=== PATIENT | male | born 1945 | race Caucasian/White ===

== ENCOUNTER 2018-10-14 10:30 | Outpatient (RCR) | payer MEDICARE, SELFPAY ==
--- NOTE | 2018-08-12 16:33 | PT.OIE ---
Current Diagnoses Low back pain (08/12/18) Muscle weakness (generalized) (08/12/18) Other abnormalities of gait and mobility (08/12/18) Other general symptoms and signs (08/12/18) Past Medical History (Last Updated 07/11/18 @ 22:07 by Kyra Amato) Cataracts, bilateral (Chronic ~2012) Chronic back pain (Chronic ~2001) Colitis (Chronic ~2011) Colon polyps (Chronic ~2011) Tinnitus (Chronic ~2010) Vision disorder (Chronic) Mumps (Resolved ~1949) Past Surgical History (Last Updated 07/11/18 @ 22:07 by Kyra Amato) Anesthesia (Resolved) History of appendectomy (Resolved ~1954) History of nasal surgery (Resolved) History of shoulder surgery (Resolved) Provider Visit Care Team Role Provider Type Johny Ragland MD Attending Provider Physician Primary Care Provider Specialty: Internal Medicine Address: [address] [place] [address] Email: Physical Therapy Initial Evaluation PT-OP-A Visit Information Start: 08/08/18 16:30 Freq: Status: Active Protocol: Document 08/12/18 10:30 LRN (Rec: 08/12/18 16:31 LRN [id number]) Out-Patient Physical Therapy Visit Information Visit Information Visit Type Initial Evaluation Visit Note Per telephone, spoke with Daniel Webb RN to discuss with Dr Mcclain regarding addition of referral for LBP to treat pt' s LBP or if pt should be referred back to his office for evaluation before back rehabilitation. Visit Start Time 10:30 Visit Stop Time 11:25 Total Visit Minutes 55 Visit Number 1 Number of BAKER HELPER Visits 0 Evaluation Information Evaluation Date 08/12/18 Precautions Precautions Balance dysfunction Back pain PT-OP-B Current Condition Start: 08/08/18 16:30 Freq: Status: Active Protocol: Document 08/12/18 10:30 LRN (Rec: 08/12/18 16:31 LRN [id number]) Current Condition History of Current Condition Onset Date 7 yrs ago Current Complaints Difficulty walking due to back pain and dec'd balance. 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 He claims the surgery was botched and since that time he has had to relearned how to walk. He has had rehabilitation off/on for the past 7 yrs in [place], [place]. He has trouble with being able to walk straight due to decreased balance. He denies fall history in the past year. The pt also complains of insidious onset of LBP that is present with activity and exercise. His pain is achy in nature. He is having difficulty walking more than 1/2 mile, standing to brush his teeth, and with sit to stand due to back pain. He has no pain with sitting or sleeping. Prior Treatments and Tests Rehabilitation for gait, on/ off for past 7 years. Future Testing and Treatments Planned None Treatment Goals Patient/Caregiver Goals Pt goal is to: 1) Walk stairs with >60% confidence (currently 50% confidence). 2) Increase speed of gait to keep up with . 3) Decrease back pain with activity. Prior Functional Status Baseline Function- ADL's Independent Baseline Function- Mobility Independent Baseline Function- Gait Able to walk 1 mile without difficulty. Up/Down stairs one at a time. Baseline Function- Recreation/Hobbies Walking: TM x 15' Stationary Biking x 15' Current Functional Impairments (Reported) Functional Limitations- ADL's Difficulty transfers: Sit to Stand. Difficulty Brushing teeth due to pain. Functional Limitations- Mobility/Gait Stair ambulation with railing one at a time with 50% confidence. Gait 1/2 mile before onset of LBP limiting gait. Personal Factors Other Personal Factors That May Effect Chronicity of balance Therapy/Recovery dysfunction Dislocated L shoulder PT-OP-C Subjective Start: 08/08/18 16:30 Freq: Status: Active Protocol: Document 08/12/18 10:30 LRN (Rec: 08/12/18 16:31 LRN [id number]) OP-PT Pain Assessment Pain Assessment Grid Paper Pain Assessment Grid Completed Yes Location Bilateral Lower Back Pain Location Details Low back Intensity 5 Scale Used Numeric (1 - 10) Description Aching Frequency Intermittent Pain Duration During activity & prolonged standing PT-OP-D Balance Start: 08/08/18 16:30 Freq: Status: Active Protocol: Document 08/12/18 10:30 LRN (Rec: 08/12/18 16:31 LRN [id number]) Miller Balance Assessment Evaluation Sitting to Standing Ability Independent w/out Hands Unsupported Stance Safely- 2 minutes Sitting Unsupported, Feet on Floor Safely- 2 minutes Standing to Sitting Ability Safely, Minimal Hand Use Transfer Ability Safely, Minimal Hand Use Unsupported Stance- Eyes Closed Safely, 10 seconds Unsupported Stance- Eyes Open Supervision to maintain Reaching Forward Standing Safely, 5 inches Pick- Up Object From Floor Independent/Safe Look Behind Shoulder - Standing Shifts Weight Well Turning 360 Degrees Turns slowly, but safely Unsupported Stance, Alternating Feet on (I)- 8 Steps in 20 secs Stair Unsupported Tandem Stance Balance Lost- Step/Stand Unilateral Leg Stance Lifts Leg/Unable to Hold Total Score Miller Total Score (out of 56 points) 45 Miller Impairment Rating 1 to 19% Impaired (Score 45-55 ) PT-OP-E Functional Tests Start: 08/08/18 16:30 Freq: Status: Active Protocol: Document 08/12/18 10:30 LRN (Rec: 08/12/18 16:31 LRN [id number]) Functional Tests Other Gait speed Name of Test Gait speed Score 2.8 Comment 3.08 ft/sec - preferred for men in 70's PT-OP-G Mobility & Gait Start: 08/08/18 16:30 Freq: Status: Active Protocol: Document 08/12/18 10:30 LRN (Rec: 08/12/18 16:31 LRN [id number]) OP Mobility Evaluation Transfers Sit to Stand Pt uses the chair to stand by pushing with his legs against if for support and stability. OP Gait Assessment Gait Gait Assistance Required: Independent Distance (Feet) 100 Able to Maintain Weight Bearing Status Yes During Gait Assistive Devices Assistive Device None Gait Deviations General Gait Pattern Lateral Trunk Lean Comments Gait Comments Lateral trunk lean posturing during gait. PT-OP-J Posture/Palpation/Skin Start: 08/08/18 16:30 Freq: Status: Active Protocol: Document 08/12/18 10:30 LRN (Rec: 08/12/18 16:31 LRN [id number]) Posture Evaluation Comments Posture Comments Standing: Level hips, C-curve of thoracolumbar spine with apex on left, low R shoulder and scapula, head tilt R, mild forward head, flat back, protruding abdomen, sway back. Palpation Assessment Location Low back Palpation Location Low back at level of L5 Palpation Findings Tenderness PT-OP-M Strength Start: 08/08/18 16:30 Freq: Status: Active Protocol: Document 08/12/18 10:30 LRN (Rec: 08/12/18 16:31 LRN [id number]) Trunk Strength Trunk Manual Muscle Testing Testing Position Standing Flexion 3 Fair Extension 5 Normal Rotation Left 3 Fair Rotation Right 4 Good Lateral Flexion Left 5 Normal Lateral Flexion Right 5 Normal Hip Strength Hip Manual Muscle Testing Right Flexion (L2) 3 Fair Extension (S1) 3 Fair Left Flexion (L2) 3 Fair Extension (S1) 3 Fair Knee Strength Knee Manual Muscle Testing Right Reason Not Measured WFL Left Reason Not Measured WFL Ankle/Foot Strength Ankle and Foot Manual Muscle Testing Right Dorsiflexion (L4) 4 Good Plantarflexion (S1) 5 Normal Left Dorsiflexion (L4) 3 Fair Plantarflexion (S1) 5 Normal PT-OP-Q Treatments Start: 08/08/18 16:30 Freq: Status: Active Protocol: Document 08/12/18 10:30 LRN (Rec: 08/12/18 16:31 LRN [id number]) Therapeutic Exercises Sitting Exercises Sit to Stand Sitting Exercise Name Sit to Stand Reps/Minutes 10 x Comments SBA. Trying to keep pt from pushing w/back of legs against sit surface Neuro Re-Education Treatment Balance Activities Walking head turns Details Vertical and horizontal head turns Surface Level Comments Loss of stability with horizontal head turns. Tandem Stance Details Tandem with L foot and with R foot behind Surface Level Comments Pt needs CGA to get toe/heel positioning. SLS Details EO, SLS Surface Level Reps/Duration 2x each Self-Care/Home Management Treatment Education Patient Education Home Exercise Program Activities Self-Care/Home Management Activities Pt I/S to do sit to stands from a solid surface, avoiding pushing with legs. PT-OP-T Assessment and Plan Start: 08/08/18 16:30 Freq: Status: Active Protocol: Document 08/12/18 10:30 LRN (Rec: 08/12/18 16:31 LRN [id number]) Physical Therapy Assessment Rehab Potential Rehabilitation Potential Good Evaluation Complexity Number of Personal Factors/Comorbidities 1-2 Number of Body Systems Impaired 4 or More Clinical Presentation at Evaluation Evolving Impairments Impairments Activity Tolerance Balance Pain Posture Strength Other Concerns Fall Risk Mild Age Related Concerns +70 yr old effect on social and home life. Barriers to Rehabilitation Chronicity of condition Memory deficits Goals Back pain Impairment Back pain rated 5/10 hindering ability to brush teeth and walk > 1/2 mile Short Term Goal (STG) Pt will be able to brush his teeth with back pain no greater than 1-2/10. STG Duration 09/23/18 Toy Maker Goal (LTG) Pt will be able to walk with spouse > 1/2 mile with back pain 3/10 or less. LTG Duration 11/04/18 Gait Impairment Slow speed of gait (2.8 ft/sec ) Long-Term Goal (LTG) Improve speed of gait to norm of 3.08 ft/sec - preferred for men in 70's. LTG Duration 11/04/18 Stairs Impairment Pt w/50% confidence with safe stair ambulation w/railing, one step gait Long-Term Goal (LTG) Pt will be improve confidence level to 60% with stair ambulation w/railing, single step or reciprocal gait. LTG Duration 11/04/18 Balance Impairment MILLER score of 45 = Safe ambulation with assistive device Toy Maker Goal (LTG) Improve balance for safe ambulation without an assistive device (MILLER score of > 45) LTG Duration 11/04/18 HEP Impairment Lacks appropriate HEP Toy Maker Goal (LTG) Pt will be independent on a self care HEP. LTG Duration 11/04/18 Assessment Summary Assessment Pt present with decreased balance indicating the need for use of an assistive device for safe ambulation; therefore placing him at risk of falling because he is not currently using an assistive device for gait. The pt demonstrates weakness of his hips and ankles that also effect his stability with gait and safety with transfers sit to stand. The pt complains of LBP that is limiting his functional ability for prolonged standing for functional activities ( brushing teeth and walking); therefore physical therapy to improve his trunk strength and decrease his pain is appropriate. The pt will benefit from skilled physical therapy to improve his LE ( hips, ankles) & trunk strength to improve his safety with gait on level and stairs and soft tissue/manual therapy to decrease his back pain to improve his tolerance for functional activities. Physical Therapy Plan Frequency and Duration Frequency of Treatment 2x/Week Plan of Care Start Date 08/12/18 Plan of Care End Date 11/04/18 Therapeutic Interventions Therapeutic Interventions Balance Training Gait Training Home Exercise Program Manual Therapy Neuromuscular Re-education Patient/Caregiver Education Self-Care/Home Management Soft Tissue Mobilization Therapeutic Exercises Modalities Cold Pack/Ice Massage Electric Stimulation Hot Packs Ultrasound Next Visit Focus/Plan Next Note Type Treatment Note Next Visit Plan Hip, core & ankle strengthening and aerobic exercise (MMT), Complete DGI, Balance training, Hip/LB stretches as needed (check mobility), MH/ES if needed for back pain.
--- NOTE | 2018-08-12 16:34 | PT.OPPOC ---
Current Diagnoses Low back pain (08/12/18) Muscle weakness (generalized) (08/12/18) Other abnormalities of gait and mobility (08/12/18) Other general symptoms and signs (08/12/18) Provider Visit Care Team Role Provider Type Johny Ragland MD Attending Provider Physician Primary Care Provider Specialty: Internal Medicine Address: [address] [place] [address], [id number] Email: Plan Of Care PT-OP-T Assessment and Plan Start: 08/08/18 16:30 Freq: Status: Active Protocol: Document 08/12/18 10:30 LRN (Rec: 08/12/18 16:31 LRN [id number]) Physical Therapy Assessment Rehab Potential Rehabilitation Potential Good Evaluation Complexity Number of Personal Factors/Comorbidities 1-2 Number of Body Systems Impaired 4 or More Clinical Presentation at Evaluation Evolving Impairments Impairments Activity Tolerance Balance Pain Posture Strength Other Concerns Fall Risk Mild Age Related Concerns +70 yr old effect on social and home life. Barriers to Rehabilitation Chronicity of condition Memory deficits Goals Back pain Impairment Back pain rated 5/10 hindering ability to brush teeth and walk > 1/2 mile Short Term Goal (STG) Pt will be able to brush his teeth with back pain no greater than 1-2/10. STG Duration 09/23/18 Custodial Goal (LTG) Pt will be able to walk with spouse > 1/2 mile with back pain 3/10 or less. LTG Duration 11/04/18 Gait Impairment Slow speed of gait (2.8 ft/sec ) Professional Architect Goal (LTG) Improve speed of gait to norm of 3.08 ft/sec - preferred for men in 70's. LTG Duration 11/04/18 Stairs Impairment Pt w/50% confidence with safe stair ambulation w/railing, one step gait Professional Architect Goal (LTG) Pt will be improve confidence level to 60% with stair ambulation w/railing, single step or reciprocal gait. LTG Duration 11/04/18 Balance Impairment MILLER score of 45 = Safe ambulation with assistive device Custodial Goal (LTG) Improve balance for safe ambulation without an assistive device (MILLER score of > 45) LTG Duration 11/04/18 HEP Impairment Lacks appropriate HEP Custodial Goal (LTG) Pt will be independent on a self care HEP. LTG Duration 11/04/18 Assessment Summary Assessment Pt present with decreased balance indicating the need for use of an assistive device for safe ambulation; therefore placing him at risk of falling because he is not currently using an assistive device for gait. The pt demonstrates weakness of his hips and ankles that also effect his stability with gait and safety with transfers sit to stand. The pt complains of LBP that is limiting his functional ability for prolonged standing for functional activities ( brushing teeth and walking); therefore physical therapy to improve his trunk strength and decrease his pain is appropriate. The pt will benefit from skilled physical therapy to improve his LE ( hips, ankles) & trunk strength to improve his safety with gait on level and stairs and soft tissue/manual therapy to decrease his back pain to improve his tolerance for functional activities. Physical Therapy Plan Frequency and Duration Frequency of Treatment 2x/Week Plan of Care Start Date 08/12/18 Plan of Care End Date 11/04/18 Therapeutic Interventions Therapeutic Interventions Balance Training Gait Training Home Exercise Program Manual Therapy Neuromuscular Re-education Patient/Caregiver Education Self-Care/Home Management Soft Tissue Mobilization Therapeutic Exercises Modalities Cold Pack/Ice Massage Electric Stimulation Hot Packs Ultrasound Next Visit Focus/Plan Next Note Type Treatment Note Next Visit Plan Hip, core & ankle strengthening and aerobic exercise (MMT), Complete DGI, Balance training, Hip/LB stretches as needed (check mobility), MH/ES if needed for back pain. Plan of Care Dates Plan of Care Start Date 08/12/18 Plan of Care End Date 11/04/18 Please Sign and Return: I have reviewed this Plan of Care and certify that the skilled therapy services above are required to meet the patient?s needs. Physician Signature Date Printed Name and Credentials Clinical Instructor Signature Printed Name and Credentials
--- NOTE | 2018-08-19 15:23 | PT.OTN ---
Current Diagnoses Other abnormalities of gait and mobility (08/19/18) Other general symptoms and signs (08/19/18) Physical Therapy Treatment Note PT-OP-A Visit Information Start: 08/08/18 16:30 Freq: Status: Active Protocol: Document 08/19/18 13:38 LRN (Rec: 08/19/18 14:43 LRN [id number]) Out-Patient Physical Therapy Visit Information Visit Information Visit Type Treatment Note Visit Note Message left 08/17/18, received [phone] on 08/18/18 from Diane Puente's office: Extension to his referral to add treatment of low back will be faxed to rehabilitation. 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 He claims the surgery was botched and since that time he has had to relearned how to walk. He has had rehabilitation off/on for the past 7 yrs in [place], [place]. He has trouble with being able to walk straight due to decreased balance. He denies fall history in the past year. The pt also complains of insidious onset of LBP that is present with activity and exercise. His pain is achy in nature. He is having difficulty walking more than 1/2 mile, standing to brush his teeth, and with sit to stand due to back pain. He has no pain with sitting or sleeping. Prior Treatments and Tests Rehabilitation for gait, on/ off for past 7 years. Future Testing and Treatments Planned None Treatment Goals Patient/Caregiver Goals Pt goal is to: 1) Walk stairs with >60% confidence (currently 50% confidence). 2) Increase speed of gait to keep up with . 3) Decrease back pain with activity. Prior Functional Status Baseline Function- ADL's Independent Baseline Function- Mobility Independent Baseline Function- Gait Able to walk 1 mile without difficulty. Up/Down stairs one at a time. Baseline Function- Recreation/Hobbies Walking: TM x 15' Stationary Biking x 15' Current Functional Impairments (Reported) Functional Limitations- ADL's Difficulty transfers: Sit to Stand. Difficulty Brushing teeth due to pain. Functional Limitations- Mobility/Gait Stair ambulation with railing one at a time with 50% confidence. Gait 1/2 mile before onset of LBP limiting gait. Personal Factors Other Personal Factors That May Effect Chronicity of balance Therapy/Recovery dysfunction Dislocated L shoulder PT-OP-C Subjective Start: 08/08/18 16:30 Freq: Status: Active Protocol: Document 08/19/18 13:38 LRN (Rec: 08/19/18 14:43 LRN [id number]) OP-PT Subjective Patient Comments Patient Comments No change. PT-OP-D Balance Start: 08/08/18 16:30 Freq: Status: Active Protocol: Document 08/12/18 10:30 LRN (Rec: 08/12/18 16:31 LRN [id number]) Stuart Balance Assessment Evaluation Sitting to Standing Ability Independent w/out Hands Unsupported Stance Safely- 2 minutes Sitting Unsupported, Feet on Floor Safely- 2 minutes Standing to Sitting Ability Safely, Minimal Hand Use Transfer Ability Safely, Minimal Hand Use Unsupported Stance- Eyes Closed Safely, 10 seconds Unsupported Stance- Eyes Open Supervision to maintain Reaching Forward Standing Safely, 5 inches Pick- Up Object From Floor Independent/Safe Look Behind Shoulder - Standing Shifts Weight Well Turning 360 Degrees Turns slowly, but safely Unsupported Stance, Alternating Feet on (I)- 8 Steps in 20 secs Stair Unsupported Tandem Stance Balance Lost- Step/Stand Unilateral Leg Stance Lifts Leg/Unable to Hold Total Score Stuart Total Score (out of 56 points) 45 Stuart Impairment Rating 1 to 19% Impaired (Score 45-55 ) PT-OP-E Functional Tests Start: 08/08/18 16:30 Freq: Status: Active Protocol: Document 08/19/18 13:38 LRN (Rec: 08/19/18 15:19 LRN [id number]) Functional Tests Other Gait speed Name of Test Gt speed of 20' Score 2.5 ft/sec Comment No assistive device needed. PT-OP-G Mobility & Gait Start: 08/08/18 16:30 Freq: Status: Active Protocol: Document 08/12/18 10:30 LRN (Rec: 08/12/18 16:31 LRN [id number]) OP Mobility Evaluation Transfers Sit to Stand Pt uses the chair to stand by pushing with his legs against if for support and stability. OP Gait Assessment Gait Gait Assistance Required: Independent Distance (Feet) 100 Able to Maintain Weight Bearing Status Yes During Gait Assistive Devices Assistive Device None Gait Deviations General Gait Pattern Lateral Trunk Lean Comments Gait Comments Lateral trunk lean posturing during gait. PT-OP-J Posture/Palpation/Skin Start: 08/08/18 16:30 Freq: Status: Active Protocol: Document 08/12/18 10:30 LRN (Rec: 08/12/18 16:31 LRN [id number]) Posture Evaluation Comments Posture Comments Standing: Level hips, C-curve of thoracolumbar spine with apex on left, low R shoulder and scapula, head tilt R, mild forward head, flat back, protruding abdomen, sway back. Palpation Assessment Location Low back Palpation Location Low back at level of L5 Palpation Findings Tenderness PT-OP-K Range of Motion Start: 08/08/18 16:30 Freq: Status: Active Protocol: Document 08/19/18 13:38 LRN (Rec: 08/19/18 15:19 LRN [id number]) Lumbar Spine Range of Motion Lumbar Spine Active Degrees Testing Position Standing Flexion 57 Extension 10 Rotation Left 10 Rotation Right 15 Lateral Flexion Left 20 Lateral Flexion Right 13 ROM Limitations Soft Tissue Tightness Comments Rotation measurement is approximate ROM. Hip Goniometric Range of Motion Hip Measured in Degrees Right Passive Testing Position Supine Flexion w/Knee Flexed 110 Straight Leg Raise 50 Abduction 40 Internal Rotation 25 External Rotation 55 Left Passive Testing Position Supine Flexion w/Knee Flexed 110 Straight Leg Raise 50 Abduction 40 Internal Rotation 30 External Rotation 60 Hip ROM Limitations Comments Passive hip AD is 10 deg's bilaterally. PT-OP-M Strength Start: 08/08/18 16:30 Freq: Status: Active Protocol: Document 08/12/18 10:30 LRN (Rec: 08/12/18 16:31 LRN [id number]) Trunk Strength Trunk Manual Muscle Testing Testing Position Standing Flexion 3 Fair Extension 5 Normal Rotation Left 3 Fair Rotation Right 4 Good Lateral Flexion Left 5 Normal Lateral Flexion Right 5 Normal Hip Strength Hip Manual Muscle Testing Right Flexion (L2) 3 Fair Extension (S1) 3 Fair Left Flexion (L2) 3 Fair Extension (S1) 3 Fair Knee Strength Knee Manual Muscle Testing Right Reason Not Measured WFL Left Reason Not Measured WFL Ankle/Foot Strength Ankle and Foot Manual Muscle Testing Right Dorsiflexion (L4) 4 Good Plantarflexion (S1) 5 Normal Left Dorsiflexion (L4) 3 Fair Plantarflexion (S1) 5 Normal PT-OP-Q Treatments Start: 08/08/18 16:30 Freq: Status: Active Protocol: Document 08/19/18 13:38 LRN (Rec: 08/19/18 15:19 LRN [id number]) Therapeutic Exercises Supine Exercises Hip PROM Supine Exercise Name All motions Reps/Minutes 4' Comments ROM measurments taken Piriformis Supine Exercise Name Knee to opposite shoulder (pt not able to do X-legged position stretch) Side bilateral Reps/Minutes 5' Comments Extra time taken for training Fig 4 stretch Side bilateral Reps/Minutes 4' Comments R>L. Extra time taken for training Hamstring/LE neural stretch Side bilateral Reps/Minutes 4' Comments Extra time taken for training Standing Exercises Trunk SB Side bilateral Reps/Minutes 2' Comments ROM measurement taken Trunk rot Side bilateral Reps/Minutes 2' Comments ROM measurement taken Trunk FB Standing Exercise Name Standing FB stretch Reps/Minutes 2' Comments ROM measurement taken Gait Training Gait Activity Stairs Description Up/Down 6 steps Device Used Railing Level of Assistance Inde Distance/Duration 3' Neuro Re-Education Treatment Balance Activities Stepping around objects Details Weaving in/out of cones Surface Level Equipment Cones Reps/Duration 3' Stepping over objects Details Stepping over hurdles Surface Level Equipment Hurdles Reps/Duration 3' Walking with variable speeds Details Slow & Fast paced compared to neutral Surface Level Reps/Duration 3' Walking head turns Details Vertical and horizontal head turns with normal gait Reps/Duration 6' Self-Care/Home Management Treatment Education Patient Education Home Exercise Program Activities Self-Care/Home Management Activities Pt issued and reviewed HEP: Hip stretches (hamstring, piriformis, ER's). PT-OP-T Assessment and Plan Start: 08/08/18 16:30 Freq: Status: Active Protocol: Document 08/19/18 13:38 LRN (Rec: 08/19/18 14:43 LRN [id number]) Physical Therapy Assessment Assessment Summary Assessment Pt balance with gait is decreased with horizontal head turns moderately, and with looking up/down mildly, only upon initial change in head position. He is not able to walk at a faster pace than normal, but can walk at a slower pace. He has decreased hip mobility in his hamstrings, hip rotators and to a lesser extent his hip extensors. The pt is able to navigate around objects, but is variable in his ability stepping over objects. Stair ambulation is safe with use of railing. Further HEP of trunk flex, rotation stretches is needed. Trunk & hip strengthening is needed. Physical Therapy Plan Frequency and Duration Frequency of Treatment 2x/Week Plan of Care Start Date 08/12/18 Plan of Care End Date 11/04/18 Next Visit Focus/Plan Next Note Type Treatment Note Next Visit Plan Complete DGI, Hip, core & ankle strengthening, and aerobic exercise, cont balance training, LB stretches (flex, rotation), trunk strengthening (and HEP), check hip strength (AB, AD, ER, IR) and hip strengthening (and HEP) as needed, MH/ES if needed for back pain.
--- NOTE | 2018-08-29 15:46 | PT.OTN ---
Current Diagnoses Other abnormalities of gait and mobility (08/29/18) Other general symptoms and signs (08/29/18) Physical Therapy Treatment Note PT-OP-A Visit Information Start: 08/08/18 16:30 Freq: Status: Active Protocol: Document 08/29/18 10:45 LRN (Rec: 08/29/18 11:22 LRN [id number]) Out-Patient Physical Therapy Visit Information Visit Information Visit Type Treatment Note Visit Note Message left 08/17/18, received [phone] on 08/18/18 from Diane Puetne's office: Extension to his referral to add treatment of low back will be faxed to rehabilitation. Visit Start Time 10:45 Visit Stop Time 11:25 Total Visit Minutes 40 Visit Number 3 Number of LITHOGRAPHER APPRENTICE Visits 0 Evaluation Information Evaluation Date 08/12/18 Precautions Precautions Balance dysfunction Back pain PT-OP-B Current Condition Start: 08/08/18 16:30 Freq: Status: Active Protocol: Document 08/12/18 10:30 LRN (Rec: 08/12/18 16:31 LRN [id number]) Current Condition History of Current Condition Onset Date 7 yrs ago Current Complaints Difficulty walking due to back pain and dec'd balance. 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 He claims the surgery was botched and since that time he has had to relearned how to walk. He has had rehabilitation off/on for the past 7 yrs in [place], [place]. He has trouble with being able to walk straight due to decreased balance. He denies fall history in the past year. The pt also complains of insidious onset of LBP that is present with activity and exercise. His pain is achy in nature. He is having difficulty walking more than 1/2 mile, standing to brush his teeth, and with sit to stand due to back pain. He has no pain with sitting or sleeping. Prior Treatments and Tests Rehabilitation for gait, on/ off for past 7 years. Future Testing and Treatments Planned None Treatment Goals Patient/Caregiver Goals Pt goal is to: 1) Walk stairs with >60% confidence (currently 50% confidence). 2) Increase speed of gait to keep up with . 3) Decrease back pain with activity. Prior Functional Status Baseline Function- ADL's Independent Baseline Function- Mobility Independent Baseline Function- Gait Able to walk 1 mile without difficulty. Up/Down stairs one at a time. Baseline Function- Recreation/Hobbies Walking: TM x 15' Stationary Biking x 15' Current Functional Impairments (Reported) Functional Limitations- ADL's Difficulty transfers: Sit to Stand. Difficulty Brushing teeth due to pain. Functional Limitations- Mobility/Gait Stair ambulation with railing one at a time with 50% confidence. Gait 1/2 mile before onset of LBP limiting gait. Personal Factors Other Personal Factors That May Effect Chronicity of balance Therapy/Recovery dysfunction Dislocated L shoulder PT-OP-C Subjective Start: 08/08/18 16:30 Freq: Status: Active Protocol: Document 08/19/18 13:38 LRN (Rec: 08/19/18 14:43 LRN [id number]) OP-PT Subjective Patient Comments Patient Comments No change. PT-OP-D Balance Start: 08/08/18 16:30 Freq: Status: Active Protocol: Document 08/12/18 10:30 LRN (Rec: 08/12/18 16:31 LRN [id number]) Stuart Balance Assessment Evaluation Sitting to Standing Ability Independent w/out Hands Unsupported Stance Safely- 2 minutes Sitting Unsupported, Feet on Floor Safely- 2 minutes Standing to Sitting Ability Safely, Minimal Hand Use Transfer Ability Safely, Minimal Hand Use Unsupported Stance- Eyes Closed Safely, 10 seconds Unsupported Stance- Eyes Open Supervision to maintain Reaching Forward Standing Safely, 5 inches Pick- Up Object From Floor Independent/Safe Look Behind Shoulder - Standing Shifts Weight Well Turning 360 Degrees Turns slowly, but safely Unsupported Stance, Alternating Feet on (I)- 8 Steps in 20 secs Stair Unsupported Tandem Stance Balance Lost- Step/Stand Unilateral Leg Stance Lifts Leg/Unable to Hold Total Score Stuart Total Score (out of 56 points) 45 Stuart Impairment Rating 1 to 19% Impaired (Score 45-55 ) PT-OP-E Functional Tests Start: 08/08/18 16:30 Freq: Status: Active Protocol: Document 08/19/18 13:38 LRN (Rec: 08/19/18 15:19 LRN [id number]) Functional Tests Other Gait speed Name of Test Gt speed of 20' Score 2.5 ft/sec Comment No assistive device needed. PT-OP-G Mobility & Gait Start: 08/08/18 16:30 Freq: Status: Active Protocol: Document 08/12/18 10:30 LRN (Rec: 08/12/18 16:31 LRN [id number]) OP Mobility Evaluation Transfers Sit to Stand Pt uses the chair to stand by pushing with his legs against if for support and stability. OP Gait Assessment Gait Gait Assistance Required: Independent Distance (Feet) 100 Able to Maintain Weight Bearing Status Yes During Gait Assistive Devices Assistive Device None Gait Deviations General Gait Pattern Lateral Trunk Lean Comments Gait Comments Lateral trunk lean posturing during gait. PT-OP-J Posture/Palpation/Skin Start: 08/08/18 16:30 Freq: Status: Active Protocol: Document 08/12/18 10:30 LRN (Rec: 08/12/18 16:31 LRN [id number]) Posture Evaluation Comments Posture Comments Standing: Level hips, C-curve of thoracolumbar spine with apex on left, low R shoulder and scapula, head tilt R, mild forward head, flat back, protruding abdomen, sway back. Palpation Assessment Location Low back Palpation Location Low back at level of L5 Palpation Findings Tenderness PT-OP-K Range of Motion Start: 08/08/18 16:30 Freq: Status: Active Protocol: Document 08/19/18 13:38 LRN (Rec: 08/19/18 15:19 LRN [id number]) Lumbar Spine Range of Motion Lumbar Spine Active Degrees Testing Position Standing Flexion 57 Extension 10 Rotation Left 10 Rotation Right 15 Lateral Flexion Left 20 Lateral Flexion Right 13 ROM Limitations Soft Tissue Tightness Comments Rotation measurement is approximate ROM. Hip Goniometric Range of Motion Hip Measured in Degrees Right Passive Testing Position Supine Flexion w/Knee Flexed 110 Straight Leg Raise 50 Abduction 40 Internal Rotation 25 External Rotation 55 Left Passive Testing Position Supine Flexion w/Knee Flexed 110 Straight Leg Raise 50 Abduction 40 Internal Rotation 30 External Rotation 60 Hip ROM Limitations Comments Passive hip AD is 10 deg's bilaterally. PT-OP-M Strength Start: 08/08/18 16:30 Freq: Status: Active Protocol: Document 08/12/18 10:30 LRN (Rec: 08/12/18 16:31 LRN [id number]) Trunk Strength Trunk Manual Muscle Testing Testing Position Standing Flexion 3 Fair Extension 5 Normal Rotation Left 3 Fair Rotation Right 4 Good Lateral Flexion Left 5 Normal Lateral Flexion Right 5 Normal Hip Strength Hip Manual Muscle Testing Right Flexion (L2) 3 Fair Extension (S1) 3 Fair Left Flexion (L2) 3 Fair Extension (S1) 3 Fair Knee Strength Knee Manual Muscle Testing Right Reason Not Measured WFL Left Reason Not Measured WFL Ankle/Foot Strength Ankle and Foot Manual Muscle Testing Right Dorsiflexion (L4) 4 Good Plantarflexion (S1) 5 Normal Left Dorsiflexion (L4) 3 Fair Plantarflexion (S1) 5 Normal PT-OP-Q Treatments Start: 08/08/18 16:30 Freq: Status: Active Protocol: Document 08/29/18 10:45 LRN (Rec: 08/29/18 15:44 LRN [id number]) Cardio Equipment Bicycle (Upright) Duration (Minutes) 5 Resistance 4 Seat Position 9 Other Pt practicing chest breathing. Therapeutic Exercises Supine Exercises Oblique strengthenig Supine Exercise Name Isometric (hand to knee) Side bilateral Reps/Minutes 8' Comments Xtra time taken to bring awareness of an oblique contraction TA tightening Supine Exercise Name TA tightening Reps/Minutes 2' Comments Xtra time taken to initiate a contraction, but pt not able to maintain Sitting Exercises Abdominal strengthening Sitting Exercise Name TA, Rotation (pushing hand to opposite knee) Side bilateral Reps/Minutes 4' Comments Pt not able to identify an oblique contraction. Not able to maintain TA Standing Exercises Trunk rot Standing Exercise Name Trunk rot strengthening Side bilateral Resistance L2 T-Band Reps/Minutes 8 Comments Xtra time taken to try to get pt to perform ex properly, oblique not isolat Other Exercises 4-Pt Other Exercise Name TA tightening Side bilateral Reps/Minutes 3' Comments Pt able to get an abdominal lift but not hold a contraction. Self-Care/Home Management Treatment Education Patient Education Home Exercise Program Other Education Much training was given for pt to hold a TA. Discussed pt's progression of aerobic ex at home with varying his time of ex if he is to ex daily (2-5' one day, up to 10' next day, repeating pattern through the week if exercising daily, otherwise have rest days inbetween). Activities Self-Care/Home Management Activities I/S pt to work home: chest breathing with TA contraction or 1st to achieve chest breathing, & oblique isometric strengthening. PT-OP-T Assessment and Plan Start: 08/08/18 16:30 Freq: Status: Active Protocol: Document 08/29/18 10:45 LRN (Rec: 08/29/18 15:44 LRN [id number]) Physical Therapy Assessment Assessment Summary Assessment Was not able to check DGI because treatment needed to improve pt awareness of his core. Extra time taken for training of holding a TA with breathing, but was unable to achieve because he was not able to coordinate TA holding without abdominal breathing. Pt appears to be disconnected to his abdominal region with poor awareness of his breathing movements and abdominal muscle contractions. Pt may need repetitive treatments to improve his awareness of abdominal muscle contractions and to be able to perform chest as well as belly breathing. Physical Therapy Plan Frequency and Duration Frequency of Treatment 2x/Week Plan of Care Start Date 08/12/18 Plan of Care End Date 11/04/18 Next Visit Focus/Plan Next Note Type Treatment Note Next Visit Plan Complete DGI, Hip, core & ankle strengthening, and progress aerobic exercise, cont balance training, LB stretches (flex, rotation), trunk strengthening (and HEP), check hip strength (AB, AD, ER, IR) and hip strengthening (and HEP) as needed, MH/ES if needed for back pain.
--- NOTE | 2018-09-02 11:35 | PT.OTN ---
Current Diagnoses Other abnormalities of gait and mobility (09/02/18) Other general symptoms and signs (09/02/18) Physical Therapy Treatment Note PT-OP-A Visit Information Start: 08/08/18 16:30 Freq: Status: Active Protocol: Document 09/02/18 11:28 SA (Rec: 09/02/18 11:35 SA [email or web address]) Out-Patient Physical Therapy Visit Information Visit Information Visit Type Treatment Note Visit Note Pt 5 min late Visit Start Time 09:50 Visit Stop Time 10:30 Total Visit Minutes 40 Visit Number 4 Number of LICENSED CUSTOMS BROKER Visits 1 PT-OP-B Current Condition Start: 08/08/18 16:30 Freq: Status: Active Protocol: Document 08/12/18 10:30 LRN (Rec: 08/12/18 16:31 LRN [id number]) Current Condition History of Current Condition Onset Date 7 yrs ago Current Complaints Difficulty walking due to back pain and dec'd balance. 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 He claims the surgery was botched and since that time he has had to relearned how to walk. He has had rehabilitation off/on for the past 7 yrs in [place], [place]. He has trouble with being able to walk straight due to decreased balance. He denies fall history in the past year. The pt also complains of insidious onset of LBP that is present with activity and exercise. His pain is achy in nature. He is having difficulty walking more than 1/2 mile, standing to brush his teeth, and with sit to stand due to back pain. He has no pain with sitting or sleeping. Prior Treatments and Tests Rehabilitation for gait, on/ off for past 7 years. Future Testing and Treatments Planned None Treatment Goals Patient/Caregiver Goals Pt goal is to: 1) Walk stairs with >60% confidence (currently 50% confidence). 2) Increase speed of gait to keep up with . 3) Decrease back pain with activity. Prior Functional Status Baseline Function- ADL's Independent Baseline Function- Mobility Independent Baseline Function- Gait Able to walk 1 mile without difficulty. Up/Down stairs one at a time. Baseline Function- Recreation/Hobbies Walking: TM x 15' Stationary Biking x 15' Current Functional Impairments (Reported) Functional Limitations- ADL's Difficulty transfers: Sit to Stand. Difficulty Brushing teeth due to pain. Functional Limitations- Mobility/Gait Stair ambulation with railing one at a time with 50% confidence. Gait 1/2 mile before onset of LBP limiting gait. Personal Factors Other Personal Factors That May Effect Chronicity of balance Therapy/Recovery dysfunction Dislocated L shoulder PT-OP-C Subjective Start: 08/08/18 16:30 Freq: Status: Active Protocol: Document 09/02/18 11:28 SA (Rec: 09/02/18 11:35 SA [email or web address]) OP-PT Subjective Patient Comments Patient Comments Pt reports he is doing abdominal exercises at home. PT-OP-D Balance Start: 08/08/18 16:30 Freq: Status: Active Protocol: Document 08/12/18 10:30 LRN (Rec: 08/12/18 16:31 LRN [id number]) Stuart Balance Assessment Evaluation Sitting to Standing Ability Independent w/out Hands Unsupported Stance Safely- 2 minutes Sitting Unsupported, Feet on Floor Safely- 2 minutes Standing to Sitting Ability Safely, Minimal Hand Use Transfer Ability Safely, Minimal Hand Use Unsupported Stance- Eyes Closed Safely, 10 seconds Unsupported Stance- Eyes Open Supervision to maintain Reaching Forward Standing Safely, 5 inches Pick- Up Object From Floor Independent/Safe Look Behind Shoulder - Standing Shifts Weight Well Turning 360 Degrees Turns slowly, but safely Unsupported Stance, Alternating Feet on (I)- 8 Steps in 20 secs Stair Unsupported Tandem Stance Balance Lost- Step/Stand Unilateral Leg Stance Lifts Leg/Unable to Hold Total Score Stuart Total Score (out of 56 points) 45 Stuart Impairment Rating 1 to 19% Impaired (Score 45-55 ) PT-OP-E Functional Tests Start: 08/08/18 16:30 Freq: Status: Active Protocol: Document 08/19/18 13:38 LRN (Rec: 08/19/18 15:19 LRN [id number]) Functional Tests Other Gait speed Name of Test Gt speed of 20' Score 2.5 ft/sec Comment No assistive device needed. PT-OP-G Mobility & Gait Start: 08/08/18 16:30 Freq: Status: Active Protocol: Document 08/12/18 10:30 LRN (Rec: 08/12/18 16:31 LRN [id number]) OP Mobility Evaluation Transfers Sit to Stand Pt uses the chair to stand by pushing with his legs against if for support and stability. OP Gait Assessment Gait Gait Assistance Required: Independent Distance (Feet) 100 Able to Maintain Weight Bearing Status Yes During Gait Assistive Devices Assistive Device None Gait Deviations General Gait Pattern Lateral Trunk Lean Comments Gait Comments Lateral trunk lean posturing during gait. PT-OP-J Posture/Palpation/Skin Start: 08/08/18 16:30 Freq: Status: Active Protocol: Document 08/12/18 10:30 LRN (Rec: 08/12/18 16:31 LRN [id number]) Posture Evaluation Comments Posture Comments Standing: Level hips, C-curve of thoracolumbar spine with apex on left, low R shoulder and scapula, head tilt R, mild forward head, flat back, protruding abdomen, sway back. Palpation Assessment Location Low back Palpation Location Low back at level of L5 Palpation Findings Tenderness PT-OP-K Range of Motion Start: 08/08/18 16:30 Freq: Status: Active Protocol: Document 08/19/18 13:38 LRN (Rec: 08/19/18 15:19 LRN [id number]) Lumbar Spine Range of Motion Lumbar Spine Active Degrees Testing Position Standing Flexion 57 Extension 10 Rotation Left 10 Rotation Right 15 Lateral Flexion Left 20 Lateral Flexion Right 13 ROM Limitations Soft Tissue Tightness Comments Rotation measurement is approximate ROM. Hip Goniometric Range of Motion Hip Measured in Degrees Right Passive Testing Position Supine Flexion w/Knee Flexed 110 Straight Leg Raise 50 Abduction 40 Internal Rotation 25 External Rotation 55 Left Passive Testing Position Supine Flexion w/Knee Flexed 110 Straight Leg Raise 50 Abduction 40 Internal Rotation 30 External Rotation 60 Hip ROM Limitations Comments Passive hip AD is 10 deg's bilaterally. PT-OP-M Strength Start: 08/08/18 16:30 Freq: Status: Active Protocol: Document 08/12/18 10:30 LRN (Rec: 08/12/18 16:31 LRN [id number]) Trunk Strength Trunk Manual Muscle Testing Testing Position Standing Flexion 3 Fair Extension 5 Normal Rotation Left 3 Fair Rotation Right 4 Good Lateral Flexion Left 5 Normal Lateral Flexion Right 5 Normal Hip Strength Hip Manual Muscle Testing Right Flexion (L2) 3 Fair Extension (S1) 3 Fair Left Flexion (L2) 3 Fair Extension (S1) 3 Fair Knee Strength Knee Manual Muscle Testing Right Reason Not Measured WFL Left Reason Not Measured WFL Ankle/Foot Strength Ankle and Foot Manual Muscle Testing Right Dorsiflexion (L4) 4 Good Plantarflexion (S1) 5 Normal Left Dorsiflexion (L4) 3 Fair Plantarflexion (S1) 5 Normal PT-OP-Q Treatments Start: 08/08/18 16:30 Freq: Status: Active Protocol: Document 09/02/18 11:28 SA (Rec: 09/02/18 11:35 [email or web address]) Cardio Equipment Bicycle (Upright) Duration (Minutes) 6 Resistance 5 Seat Position 9 Therapeutic Exercises Supine Exercises Oblique strengthenig Supine Exercise Name Isometric (hand to knee) Side bilateral Reps/Minutes 6' Comments Xtra time taken to bring awareness of an oblique contraction TA tightening Supine Exercise Name TA tightening Reps/Minutes 2' Comments Xtra time taken to initiate a contraction, but pt not able to maintain Piriformis Supine Exercise Name Knee to opposite shoulder (pt not able to do X-legged position stretch) Side bilateral Reps/Minutes 5' Comments Extra time taken for training Hamstring/LE neural stretch Side bilateral Reps/Minutes 4' Comments Extra time taken for training Sitting Exercises Abdominal strengthening Sitting Exercise Name TA, Rotation (pushing hand to opposite knee) Side bilateral Reps/Minutes 4' Comments Pt not able to identify an oblique contraction. Not able to maintain TA Other Exercises 4-Pt Other Exercise Name TA tightening Side bilateral Reps/Minutes 3' Comments Pt able to get an abdominal lift but not hold a contraction. PT-OP-T Assessment and Plan Start: 08/08/18 16:30 Freq: Status: Active Protocol: Document 09/02/18 11:28 SA (Rec: 09/02/18 11:35 [email or web address]) Physical Therapy Assessment Assessment Summary Assessment Completed DGI with overall score of 16/28 which relates to an increase in falls. Treatment focused on core engagement and TA contraction with breathing. Pt having difficulty with breathing during contraction, to continue working on at home. Physical Therapy Plan Next Visit Focus/Plan Next Note Type Treatment Note Next Visit Plan Progress core program as able, increase pt self awareness, LE strengthening and balance.
--- NOTE | 2018-09-05 15:50 | PT.OTN ---
Current Diagnoses Other abnormalities of gait and mobility (09/05/18) Other general symptoms and signs (09/05/18) Physical Therapy Treatment Note PT-OP-A Visit Information Start: 08/08/18 16:30 Freq: Status: Active Protocol: Document 09/05/18 09:00 LRN (Rec: 09/05/18 09:44 LRN [id number]) Out-Patient Physical Therapy Visit Information Visit Information Visit Type Treatment Note Visit Start Time 09:00 Visit Stop Time 09:43 Total Visit Minutes 43 Visit Number 5 Number of PHOTOGRAPHIC [employer]QU[employer]MENT [employer]SEMBLER Visits 1 Evaluation Information Evaluation Date 08/12/18 Precautions Precautions Balance dysfunction Back pain PT-OP-B Current Condition Start: 08/08/18 16:30 Freq: Status: Active Protocol: Document 08/12/18 10:30 LRN (Rec: 08/12/18 16:31 LRN [id number]) Current Condition History of Current Condition Onset Date 7 yrs ago Current Complaints Difficulty walking due to back pain and dec'd balance. 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 He claims the surgery was botched and since that time he has had to relearned how to walk. He has had rehabilitation off/on for the past 7 yrs in [place], [place]. He has trouble with being able to walk straight due to decreased balance. He denies fall history in the past year. The pt also complains of insidious onset of LBP that is present with activity and exercise. His pain is achy in nature. He is having difficulty walking more than 1/2 mile, standing to brush his teeth, and with sit to stand due to back pain. He has no pain with sitting or sleeping. Prior Treatments and Tests Rehabilitation for gait, on/ off for past 7 years. Future Testing and Treatments Planned None Treatment Goals Patient/Caregiver Goals Pt goal is to: 1) Walk stairs with >60% confidence (currently 50% confidence). 2) Increase speed of gait to keep up with . 3) Decrease back pain with activity. Prior Functional Status Baseline Function- ADL's Independent Baseline Function- Mobility Independent Baseline Function- Gait Able to walk 1 mile without difficulty. Up/Down stairs one at a time. Baseline Function- Recreation/Hobbies Walking: TM x 15' Stationary Biking x 15' Current Functional Impairments (Reported) Functional Limitations- ADL's Difficulty transfers: Sit to Stand. Difficulty Brushing teeth due to pain. Functional Limitations- Mobility/Gait Stair ambulation with railing one at a time with 50% confidence. Gait 1/2 mile before onset of LBP limiting gait. Personal Factors Other Personal Factors That May Effect Chronicity of balance Therapy/Recovery dysfunction Dislocated L shoulder PT-OP-C Subjective Start: 08/08/18 16:30 Freq: Status: Active Protocol: Document 09/05/18 09:00 LRN (Rec: 09/05/18 09:44 LRN [id number]) OP-PT Subjective Patient Comments Patient Comments Has been working on posture, therefore is able to walk a little longer before back pain starts (20-30'). PT-OP-D Balance Start: 08/08/18 16:30 Freq: Status: Active Protocol: Document 08/12/18 10:30 LRN (Rec: 08/12/18 16:31 LRN [id number]) Miller Balance Assessment Evaluation Sitting to Standing Ability Independent w/out Hands Unsupported Stance Safely- 2 minutes Sitting Unsupported, Feet on Floor Safely- 2 minutes Standing to Sitting Ability Safely, Minimal Hand Use Transfer Ability Safely, Minimal Hand Use Unsupported Stance- Eyes Closed Safely, 10 seconds Unsupported Stance- Eyes Open Supervision to maintain Reaching Forward Standing Safely, 5 inches Pick- Up Object From Floor Independent/Safe Look Behind Shoulder - Standing Shifts Weight Well Turning 360 Degrees Turns slowly, but safely Unsupported Stance, Alternating Feet on (I)- 8 Steps in 20 secs Stair Unsupported Tandem Stance Balance Lost- Step/Stand Unilateral Leg Stance Lifts Leg/Unable to Hold Total Score Miller Total Score (out of 56 points) 45 Miller Impairment Rating 1 to 19% Impaired (Score 45-55 ) PT-OP-E Functional Tests Start: 08/08/18 16:30 Freq: Status: Active Protocol: Document 08/19/18 13:38 LRN (Rec: 08/19/18 15:19 LRN [id number]) Functional Tests Other Gait speed Name of Test Gt speed of 20' Score 2.5 ft/sec Comment No assistive device needed. PT-OP-G Mobility & Gait Start: 08/08/18 16:30 Freq: Status: Active Protocol: Document 08/12/18 10:30 LRN (Rec: 08/12/18 16:31 LRN [id number]) OP Mobility Evaluation Transfers Sit to Stand Pt uses the chair to stand by pushing with his legs against if for support and stability. OP Gait Assessment Gait Gait Assistance Required: Independent Distance (Feet) 100 Able to Maintain Weight Bearing Status Yes During Gait Assistive Devices Assistive Device None Gait Deviations General Gait Pattern Lateral Trunk Lean Comments Gait Comments Lateral trunk lean posturing during gait. PT-OP-J Posture/Palpation/Skin Start: 08/08/18 16:30 Freq: Status: Active Protocol: Document 08/12/18 10:30 LRN (Rec: 08/12/18 16:31 LRN [id number]) Posture Evaluation Comments Posture Comments Standing: Level hips, C-curve of thoracolumbar spine with apex on left, low R shoulder and scapula, head tilt R, mild forward head, flat back, protruding abdomen, sway back. Palpation Assessment Location Low back Palpation Location Low back at level of L5 Palpation Findings Tenderness PT-OP-K Range of Motion Start: 08/08/18 16:30 Freq: Status: Active Protocol: Document 08/19/18 13:38 LRN (Rec: 08/19/18 15:19 LRN [id number]) Lumbar Spine Range of Motion Lumbar Spine Active Degrees Testing Position Standing Flexion 57 Extension 10 Rotation Left 10 Rotation Right 15 Lateral Flexion Left 20 Lateral Flexion Right 13 ROM Limitations Soft Tissue Tightness Comments Rotation measurement is approximate ROM. Hip Goniometric Range of Motion Hip Measured in Degrees Right Passive Testing Position Supine Flexion w/Knee Flexed 110 Straight Leg Raise 50 Abduction 40 Internal Rotation 25 External Rotation 55 Left Passive Testing Position Supine Flexion w/Knee Flexed 110 Straight Leg Raise 50 Abduction 40 Internal Rotation 30 External Rotation 60 Hip ROM Limitations Comments Passive hip AD is 10 deg's bilaterally. PT-OP-M Strength Start: 08/08/18 16:30 Freq: Status: Active Protocol: Document 08/12/18 10:30 LRN (Rec: 08/12/18 16:31 LRN [id number]) Trunk Strength Trunk Manual Muscle Testing Testing Position Standing Flexion 3 Fair Extension 5 Normal Rotation Left 3 Fair Rotation Right 4 Good Lateral Flexion Left 5 Normal Lateral Flexion Right 5 Normal Hip Strength Hip Manual Muscle Testing Right Flexion (L2) 3 Fair Extension (S1) 3 Fair Left Flexion (L2) 3 Fair Extension (S1) 3 Fair Knee Strength Knee Manual Muscle Testing Right Reason Not Measured WFL Left Reason Not Measured WFL Ankle/Foot Strength Ankle and Foot Manual Muscle Testing Right Dorsiflexion (L4) 4 Good Plantarflexion (S1) 5 Normal Left Dorsiflexion (L4) 3 Fair Plantarflexion (S1) 5 Normal PT-OP-Q Treatments Start: 08/08/18 16:30 Freq: Status: Active Protocol: Document 09/05/18 09:00 LRN (Rec: 09/05/18 09:44 LRN [id number]) Cardio Equipment Bicycle (Upright) Duration (Minutes) 10 Resistance 1 Seat Position 9 Other Goal today was for 55 rpm Therapeutic Exercises Sitting Exercises Ankle IV Sitting Exercise Name Ankle IV Side bilateral Resistance Lev 1 T-Band, Double band strength Reps/Minutes 30x Ankle EV Sitting Exercise Name Ankle EV Side bilateral Resistance Lev 1 T-Band, Double band strength Reps/Minutes 30x Ankle DF Sitting Exercise Name Ankle DF Resistance Lev 1 T-Band, single band strength Reps/Minutes 30x Abdominal strengthening Sitting Exercise Name TA, Rotation (pushing hand to opposite knee) Side bilateral Reps/Minutes 4' Comments Pt not able to identify an oblique contraction. Not able to maintain TA Standing Exercises Ankle DF Standing Exercise Name Ankle DF Side bilateral Reps/Minutes 15 x 2 Comments Last 15 reps with hands hovering for balance training. Neuro Re-Education Treatment Other Activities Breathing through chest Details Chest breathing holding TA using mirror as feedback Comments Awareness training for TA holding by visually seeing chest breathing. Pt demonstrated fair awareness. Self-Care/Home Management Treatment Education Patient Education Home Exercise Program Activities Self-Care/Home Management Activities Issued & reviewed HEP: Ankle IV/EV/written instructions for DF. Issued Lev 2 T-Band. PT-OP-T Assessment and Plan Start: 08/08/18 16:30 Freq: Status: Active Protocol: Document 09/05/18 09:00 LRN (Rec: 09/05/18 09:44 LRN [id number]) Physical Therapy Assessment Goals Back pain Impairment Back pain rated 5/10 hindering ability to brush teeth and walk > 1/2 mile Short Term Goal (STG) Pt will be able to brush his teeth with back pain no greater than 1-2/10. STG Duration 09/23/18 Intermediate Goal (LTG) Pt will be able to walk with spouse > 1/2 mile with back pain 3/10 or less. LTG Duration 11/04/18 Gait Impairment Slow speed of gait (2.8 ft/sec ) [employer] Goal (LTG) Improve speed of gait to norm of 3.08 ft/sec - preferred for men in 70's. LTG Duration 11/04/18 Stairs Impairment Pt w/50% confidence with safe stair ambulation w/railing, one step gait Intermediate Goal (LTG) Pt will be improve confidence level to 60% with stair ambulation w/railing, single step or reciprocal gait. LTG Duration 11/04/18 Balance Impairment MILLER score of 45 = Safe ambulation with assistive device [employer] Goal (LTG) Improve balance for safe ambulation without an assistive device (MILLER score of > 45) LTG Duration 11/04/18 HEP Impairment Lacks appropriate HEP [employer] Goal (LTG) Pt will be independent on a self care HEP. LTG Duration 11/04/18 Assessment Summary Assessment Pt showed some chest excursion with breathing using a mirror for visual feedback. He was also able to demonstrate a proper TA contraction in sitting although brief. Physical Therapy Plan Frequency and Duration Frequency of Treatment 2x/Week Plan of Care Start Date 08/12/18 Plan of Care End Date 11/04/18 Next Visit Focus/Plan Next Note Type Treatment Note Next Visit Plan Progress core program as able, increase pt self awareness, LE strengthening and balance.
--- NOTE | 2018-09-08 14:39 | PT.OTN ---
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 He claims the surgery was botched and since that time he has had to relearned how to walk. He has had rehabilitation off/on for the past 7 yrs in [place], [place]. He has trouble with being able to walk straight due to decreased balance. He denies fall history in the past year. The pt also complains of insidious onset of LBP that is present with activity and exercise. His pain is achy in nature. He is having difficulty walking more than 1/2 mile, standing to brush his teeth, and with sit to stand due to back pain. He has no pain with sitting or sleeping. Prior Treatments and Tests Rehabilitation for gait, on/ off for past 7 years. Future Testing and Treatments Planned None Treatment Goals Patient/Caregiver Goals Pt goal is to: 1) Walk stairs with >60% confidence (currently 50% confidence). 2) Increase speed of gait to keep up with . 3) Decrease back pain with activity. Prior Functional Status Baseline Function- ADL's Independent Baseline Function- Mobility Independent Baseline Function- Gait Able to walk 1 mile without difficulty. Up/Down stairs one at a time. Baseline Function- Recreation/Hobbies Walking: TM x 15' Stationary Biking x 15' Current Functional Impairments (Reported) Functional Limitations- ADL's Difficulty transfers: Sit to Stand. Difficulty Brushing teeth due to pain. Functional Limitations- Mobility/Gait Stair ambulation with railing one at a time with 50% confidence. Gait 1/2 mile before onset of LBP limiting gait. Personal Factors Other Personal Factors That May Effect Chronicity of balance Therapy/Recovery dysfunction Dislocated L shoulder PT-OP-C Subjective Start: 08/08/18 16:30 Freq: Status: Active Protocol: Document 09/08/18 10:32 LRN (Rec: 09/08/18 11:17 LRN [id number]) OP-PT Subjective Patient Comments Patient Comments Has been working on ankle strengthening ex's and deep breathing body just doesn't want to work that way. Back doesn't hurt as much. PT-OP-D Balance Start: 08/08/18 16:30 Freq: Status: Active Protocol: Document 08/12/18 10:30 LRN (Rec: 08/12/18 16:31 LRN [id number]) Stuart Balance Assessment Evaluation Sitting to Standing Ability Independent w/out Hands Unsupported Stance Safely- 2 minutes Sitting Unsupported, Feet on Floor Safely- 2 minutes Standing to Sitting Ability Safely, Minimal Hand Use Transfer Ability Safely, Minimal Hand Use Unsupported Stance- Eyes Closed Safely, 10 seconds Unsupported Stance- Eyes Open Supervision to maintain Reaching Forward Standing Safely, 5 inches Pick- Up Object From Floor Independent/Safe Look Behind Shoulder - Standing Shifts Weight Well Turning 360 Degrees Turns slowly, but safely Unsupported Stance, Alternating Feet on (I)- 8 Steps in 20 secs Stair Unsupported Tandem Stance Balance Lost- Step/Stand Unilateral Leg Stance Lifts Leg/Unable to Hold Total Score Stuart Total Score (out of 56 points) 45 Stuart Impairment Rating 1 to 19% Impaired (Score 45-55 ) PT-OP-E Functional Tests Start: 08/08/18 16:30 Freq: Status: Active Protocol: Document 08/19/18 13:38 LRN (Rec: 08/19/18 15:19 LRN [id number]) Functional Tests Other Gait speed Name of Test Gt speed of 20' Score 2.5 ft/sec Comment No assistive device needed. PT-OP-G Mobility & Gait Start: 08/08/18 16:30 Freq: Status: Active Protocol: Document 08/12/18 10:30 LRN (Rec: 08/12/18 16:31 LRN [id number]) OP Mobility Evaluation Transfers Sit to Stand Pt uses the chair to stand by pushing with his legs against if for support and stability. OP Gait Assessment Gait Gait Assistance Required: Independent Distance (Feet) 100 Able to Maintain Weight Bearing Status Yes During Gait Assistive Devices Assistive Device None Gait Deviations General Gait Pattern Lateral Trunk Lean Comments Gait Comments Lateral trunk lean posturing during gait. PT-OP-J Posture/Palpation/Skin Start: 08/08/18 16:30 Freq: Status: Active Protocol: Document 08/12/18 10:30 LRN (Rec: 08/12/18 16:31 LRN [id number]) Posture Evaluation Comments Posture Comments Standing: Level hips, C-curve of thoracolumbar spine with apex on left, low R shoulder and scapula, head tilt R, mild forward head, flat back, protruding abdomen, sway back. Palpation Assessment Location Low back Palpation Location Low back at level of L5 Palpation Findings Tenderness PT-OP-K Range of Motion Start: 08/08/18 16:30 Freq: Status: Active Protocol: Document 08/19/18 13:38 LRN (Rec: 08/19/18 15:19 LRN [id number]) Lumbar Spine Range of Motion Lumbar Spine Active Degrees Testing Position Standing Flexion 57 Extension 10 Rotation Left 10 Rotation Right 15 Lateral Flexion Left 20 Lateral Flexion Right 13 ROM Limitations Soft Tissue Tightness Comments Rotation measurement is approximate ROM. Hip Goniometric Range of Motion Hip Measured in Degrees Right Passive Testing Position Supine Flexion w/Knee Flexed 110 Straight Leg Raise 50 Abduction 40 Internal Rotation 25 External Rotation 55 Left Passive Testing Position Supine Flexion w/Knee Flexed 110 Straight Leg Raise 50 Abduction 40 Internal Rotation 30 External Rotation 60 Hip ROM Limitations Comments Passive hip AD is 10 deg's bilaterally. PT-OP-M Strength Start: 08/08/18 16:30 Freq: Status: Active Protocol: Document 08/12/18 10:30 LRN (Rec: 08/12/18 16:31 LRN [id number]) Trunk Strength Trunk Manual Muscle Testing Testing Position Standing Flexion 3 Fair Extension 5 Normal Rotation Left 3 Fair Rotation Right 4 Good Lateral Flexion Left 5 Normal Lateral Flexion Right 5 Normal Hip Strength Hip Manual Muscle Testing Right Flexion (L2) 3 Fair Extension (S1) 3 Fair Left Flexion (L2) 3 Fair Extension (S1) 3 Fair Knee Strength Knee Manual Muscle Testing Right Reason Not Measured WFL Left Reason Not Measured WFL Ankle/Foot Strength Ankle and Foot Manual Muscle Testing Right Dorsiflexion (L4) 4 Good Plantarflexion (S1) 5 Normal Left Dorsiflexion (L4) 3 Fair Plantarflexion (S1) 5 Normal PT-OP-Q Treatments Start: 08/08/18 16:30 Freq: Status: Active Protocol: Document 09/08/18 10:32 LRN (Rec: 09/08/18 11:17 LRN [id number]) Cardio Equipment Bicycle (Upright) Duration (Minutes) 10 Resistance 3 Seat Position 9 Other Goal today was for 60 rpm Therapeutic Exercises Supine Exercises Chest breathing Supine Exercise Name Chest breathing with TA held Reps/Minutes 5' Comments Neuro re-ed to train holding of TA while breathing Deep Breathing Supine Exercise Name Breathing review (deep and chest) Reps/Minutes 1' TA tightening Supine Exercise Name TA tightening neuro re-ed Reps/Minutes 7' Comments Xtra time taken to initiate a contraction. Pt not able to maintain Sitting Exercises Trunk rotation Sitting Exercise Name Trunk rotation neuro re-ed Side bilateral Resistance Manual and none Reps/Minutes L 10 x 3, R 10 x 2 Comments Extra time taken to improve awareness of performing trunk rotation Ankle EV Sitting Exercise Name Ankle EV Side bilateral Resistance Lev 1 T-Band, Double band strength Reps/Minutes 30x Ankle DF Sitting Exercise Name Ankle DF Side bilateral Resistance 2# Reps/Minutes 30x Abdominal strengthening Sitting Exercise Name Neuro re-ed for TA and rot activation Side bilateral Reps/Minutes 6' Comments Pt not able to identify an oblique contraction. Not able to maintain TA Sit to Stand Sitting Exercise Name Sit to Stand Reps/Minutes 10 x Comments SBA. Trying to keep pt from pushing w/back of legs against sit surface Neuro Re-Education Treatment Balance Activities BOSU Details Standing on BOSU Ball for balance and ankle strengthening Equipment Stair railing Reps/Duration 4' Comments Fair balance Other Activities Breathing through chest Details See supine exercises PT-OP-T Assessment and Plan Start: 08/08/18 16:30 Freq: Status: Active Protocol: Document 09/08/18 10:32 LRN (Rec: 09/08/18 11:17 LRN [id number]) Physical Therapy Assessment Assessment Summary Assessment Pt is able to demonstrate improved chest breathing with TA in sitting but not in supine. Poor TA contraction and holding in supine due to abdominal breathing only. Pt demonstrates good recall of ankle HEP. Balance training can be progressed. Pt is ready to progress in resistance to ankle strengthening; therefore sidelie EV/IV is appropriate for pt to do as HEP. Physical Therapy Plan Frequency and Duration Frequency of Treatment 2x/Week Plan of Care Start Date 08/12/18 Plan of Care End Date 11/04/18 Next Visit Focus/Plan Next Note Type Treatment Note Next Visit Plan Progress core program as able with addition of resistance to rotation if pt able to engage obliques. Increase pt self awareness for chest breathing in supine; assess if pt able to perform stand to sit without plopping and strengthen LE's to improve transfer function; balance training. Review ankle EV/IV in sidelie; if L rot is equal to R rot; supine TA holding with chest breathing.
--- NOTE | 2018-09-20 12:36 | PT.OTN ---
Current Diagnoses Other abnormalities of gait and mobility (09/20/18) Other general symptoms and signs (09/20/18) Physical Therapy Treatment Note PT-OP-A Visit Information Start: 08/08/18 16:30 Freq: Status: Active Protocol: Document 09/20/18 09:00 GGD (Rec: 09/20/18 12:35 GGD [id number]) Out-Patient Physical Therapy Visit Information Visit Information Visit Type Treatment Note Visit Start Time 09:00 Visit Stop Time 09:40 Total Visit Minutes 40 Visit Number 7 Number of DENTAL APPLIANCE MECHANIC Visits 2 Evaluation Information Evaluation Date 08/12/18 PT-OP-B Current Condition Start: 08/08/18 16:30 Freq: Status: Active Protocol: Document 08/12/18 10:30 LRN (Rec: 08/12/18 16:31 LRN [id number]) Current Condition History of Current Condition Onset Date 7 yrs ago Current Complaints Difficulty walking due to back pain and dec'd balance. 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 He claims the surgery was botched and since that time he has had to relearned how to walk. He has had rehabilitation off/on for the past 7 yrs in [place], [place]. He has trouble with being able to walk straight due to decreased balance. He denies fall history in the past year. The pt also complains of insidious onset of LBP that is present with activity and exercise. His pain is achy in nature. He is having difficulty walking more than 1/2 mile, standing to brush his teeth, and with sit to stand due to back pain. He has no pain with sitting or sleeping. Prior Treatments and Tests Rehabilitation for gait, on/ off for past 7 years. Future Testing and Treatments Planned None Treatment Goals Patient/Caregiver Goals Pt goal is to: 1) Walk stairs with >60% confidence (currently 50% confidence). 2) Increase speed of gait to keep up with . 3) Decrease back pain with activity. Prior Functional Status Baseline Function- ADL's Independent Baseline Function- Mobility Independent Baseline Function- Gait Able to walk 1 mile without difficulty. Up/Down stairs one at a time. Baseline Function- Recreation/Hobbies Walking: TM x 15' Stationary Biking x 15' Current Functional Impairments (Reported) Functional Limitations- ADL's Difficulty transfers: Sit to Stand. Difficulty Brushing teeth due to pain. Functional Limitations- Mobility/Gait Stair ambulation with railing one at a time with 50% confidence. Gait 1/2 mile before onset of LBP limiting gait. Personal Factors Other Personal Factors That May Effect Chronicity of balance Therapy/Recovery dysfunction Dislocated L shoulder PT-OP-C Subjective Start: 08/08/18 16:30 Freq: Status: Active Protocol: Document 09/20/18 09:00 GGD (Rec: 09/20/18 12:35 GGD [id number]) OP-PT Subjective Patient Comments Patient Comments Pt states she is stiff today. PT-OP-D Balance Start: 08/08/18 16:30 Freq: Status: Active Protocol: Document 08/12/18 10:30 LRN (Rec: 08/12/18 16:31 LRN [id number]) Stuart Balance Assessment Evaluation Sitting to Standing Ability Independent w/out Hands Unsupported Stance Safely- 2 minutes Sitting Unsupported, Feet on Floor Safely- 2 minutes Standing to Sitting Ability Safely, Minimal Hand Use Transfer Ability Safely, Minimal Hand Use Unsupported Stance- Eyes Closed Safely, 10 seconds Unsupported Stance- Eyes Open Supervision to maintain Reaching Forward Standing Safely, 5 inches Pick- Up Object From Floor Independent/Safe Look Behind Shoulder - Standing Shifts Weight Well Turning 360 Degrees Turns slowly, but safely Unsupported Stance, Alternating Feet on (I)- 8 Steps in 20 secs Stair Unsupported Tandem Stance Balance Lost- Step/Stand Unilateral Leg Stance Lifts Leg/Unable to Hold Total Score Stuart Total Score (out of 56 points) 45 Stuart Impairment Rating 1 to 19% Impaired (Score 45-55 ) PT-OP-E Functional Tests Start: 08/08/18 16:30 Freq: Status: Active Protocol: Document 08/19/18 13:38 LRN (Rec: 08/19/18 15:19 LRN [id number]) Functional Tests Other Gait speed Name of Test Gt speed of 20' Score 2.5 ft/sec Comment No assistive device needed. PT-OP-G Mobility & Gait Start: 08/08/18 16:30 Freq: Status: Active Protocol: Document 08/12/18 10:30 LRN (Rec: 08/12/18 16:31 LRN [id number]) OP Mobility Evaluation Transfers Sit to Stand Pt uses the chair to stand by pushing with his legs against if for support and stability. OP Gait Assessment Gait Gait Assistance Required: Independent Distance (Feet) 100 Able to Maintain Weight Bearing Status Yes During Gait Assistive Devices Assistive Device None Gait Deviations General Gait Pattern Lateral Trunk Lean Comments Gait Comments Lateral trunk lean posturing during gait. PT-OP-J Posture/Palpation/Skin Start: 08/08/18 16:30 Freq: Status: Active Protocol: Document 08/12/18 10:30 LRN (Rec: 08/12/18 16:31 LRN [id number]) Posture Evaluation Comments Posture Comments Standing: Level hips, C-curve of thoracolumbar spine with apex on left, low R shoulder and scapula, head tilt R, mild forward head, flat back, protruding abdomen, sway back. Palpation Assessment Location Low back Palpation Location Low back at level of L5 Palpation Findings Tenderness PT-OP-K Range of Motion Start: 08/08/18 16:30 Freq: Status: Active Protocol: Document 08/19/18 13:38 LRN (Rec: 08/19/18 15:19 LRN [id number]) Lumbar Spine Range of Motion Lumbar Spine Active Degrees Testing Position Standing Flexion 57 Extension 10 Rotation Left 10 Rotation Right 15 Lateral Flexion Left 20 Lateral Flexion Right 13 ROM Limitations Soft Tissue Tightness Comments Rotation measurement is approximate ROM. Hip Goniometric Range of Motion Hip Right Passive Testing Position Supine Flexion w/Knee Flexed 110 Straight Leg Raise 50 Abduction 40 Internal Rotation 25 External Rotation 55 Left Passive Testing Position Supine Flexion w/Knee Flexed 110 Straight Leg Raise 50 Abduction 40 Internal Rotation 30 External Rotation 60 Hip ROM Limitations Comments Passive hip AD is 10 deg's bilaterally. PT-OP-M Strength Start: 08/08/18 16:30 Freq: Status: Active Protocol: Document 08/12/18 10:30 LRN (Rec: 08/12/18 16:31 LRN [id number]) Trunk Strength Trunk Manual Muscle Testing Testing Position Standing Flexion 3 Fair Extension 5 Normal Rotation Left 3 Fair Rotation Right 4 Good Lateral Flexion Left 5 Normal Lateral Flexion Right 5 Normal Hip Strength Hip Manual Muscle Testing Right Flexion (L2) 3 Fair Extension (S1) 3 Fair Left Flexion (L2) 3 Fair Extension (S1) 3 Fair Knee Strength Knee Manual Muscle Testing Right Reason Not Measured WFL Left Reason Not Measured WFL Ankle/Foot Strength Ankle and Foot Manual Muscle Testing Right Dorsiflexion (L4) 4 Good Plantarflexion (S1) 5 Normal Left Dorsiflexion (L4) 3 Fair Plantarflexion (S1) 5 Normal PT-OP-Q Treatments Start: 08/08/18 16:30 Freq: Status: Active Protocol: Document 09/20/18 09:00 GGD (Rec: 09/20/18 12:35 GGD [id number]) Cardio Equipment Bicycle (Upright) Duration (Minutes) 10 Resistance 3 Seat Position 9 Therapeutic Exercises Supine Exercises Chest breathing Supine Exercise Name Chest breathing with TA held Reps/Minutes 5' Comments Neuro re-ed to train holding of TA while breathing Deep Breathing Supine Exercise Name Breathing review (deep and chest) Reps/Minutes 1' TA tightening Supine Exercise Name TA tightening neuro re-ed Reps/Minutes 2' Piriformis Supine Exercise Name Knee to opposite shoulder (pt not able to do X-legged position stretch) Side bilateral Reps/Minutes 5' Comments Extra time taken for training Sitting Exercises Trunk rotation Sitting Exercise Name Trunk rotation neuro re-ed Side bilateral Resistance Manual and none Reps/Minutes L 10 x 3, R 10 x 2 Comments Extra time taken to improve awareness of performing trunk rotation Ankle EV Sitting Exercise Name Ankle EV Side bilateral Resistance Lev 1 T-Band, Double band strength Reps/Minutes 30x Ankle DF Sitting Exercise Name Ankle DF Side bilateral Resistance 2# Reps/Minutes 30x Abdominal strengthening Sitting Exercise Name Neuro re-ed for TA and rot activation Side bilateral Reps/Minutes 6' Comments Pt not able to identify an oblique contraction. Not able to maintain TA Sit to Stand Sitting Exercise Name Sit to Stand Reps/Minutes 10 x Comments SBA. Trying to keep pt from pushing w/back of legs against sit surface Neuro Re-Education Treatment Balance Activities BOSU Details Standing on BOSU Ball for balance and ankle strengthening Equipment Stair railing Reps/Duration 4' Comments Fair balance PT-OP-T Assessment and Plan Start: 08/08/18 16:30 Freq: Status: Active Protocol: Document 09/20/18 09:00 GGD (Rec: 09/20/18 12:35 GGD [id number]) Physical Therapy Assessment Assessment Summary Assessment Pt needed min cues for exerices. He has a poor TA contraction. Physical Therapy Plan Frequency and Duration Frequency of Treatment 2x/Week Plan of Care Start Date 08/12/18 Plan of Care End Date 11/04/18 Next Visit Focus/Plan Next Note Type Treatment Note Next Visit Plan Progress core program as able with addition of resistance to rotation if pt able to engage obliques. Increase pt self awareness for chest breathing in supine; assess if pt able to perform stand to sit without plopping and strengthen LE's to improve transfer function; balance training. Review ankle EV/IV in sidelie; if L rot is equal to R rot; supine TA holding with chest breathing.
--- NOTE | 2018-09-27 17:04 | PT.OTN ---
Current Diagnoses Other abnormalities of gait and mobility (09/27/18) Other general symptoms and signs (09/27/18) Physical Therapy Treatment Note PT-OP-A Visit Information Start: 08/08/18 16:30 Freq: Status: Active Protocol: Document 09/27/18 12:00 GGD (Rec: 09/27/18 17:04 GGD [id number]) Out-Patient Physical Therapy Visit Information Visit Information Visit Type Treatment Note Visit Start Time 12:00 Visit Stop Time 12:40 Total Visit Minutes 40 Visit Number 8 Number of [employer] Visits 3 Evaluation Information Evaluation Date 08/12/18 PT-OP-B Current Condition Start: 08/08/18 16:30 Freq: Status: Active Protocol: Document 08/12/18 10:30 LRN (Rec: 08/12/18 16:31 LRN [id number]) Current Condition History of Current Condition Onset Date 7 yrs ago Current Complaints Difficulty walking due to back pain and dec'd balance. 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 He claims the surgery was botched and since that time he has had to relearned how to walk. He has had rehabilitation off/on for the past 7 yrs in [place], [place]. He has trouble with being able to walk straight due to decreased balance. He denies fall history in the past year. The pt also complains of insidious onset of LBP that is present with activity and exercise. His pain is achy in nature. He is having difficulty walking more than 1/2 mile, standing to brush his teeth, and with sit to stand due to back pain. He has no pain with sitting or sleeping. Prior Treatments and Tests Rehabilitation for gait, on/ off for past 7 years. Future Testing and Treatments Planned None Treatment Goals Patient/Caregiver Goals Pt goal is to: 1) Walk stairs with >60% confidence (currently 50% confidence). 2) Increase speed of gait to keep up with . 3) Decrease back pain with activity. Prior Functional Status Baseline Function- ADL's Independent Baseline Function- Mobility Independent Baseline Function- Gait Able to walk 1 mile without difficulty. Up/Down stairs one at a time. Baseline Function- Recreation/Hobbies Walking: TM x 15' Stationary Biking x 15' Current Functional Impairments (Reported) Functional Limitations- ADL's Difficulty transfers: Sit to Stand. Difficulty Brushing teeth due to pain. Functional Limitations- Mobility/Gait Stair ambulation with railing one at a time with 50% confidence. Gait 1/2 mile before onset of LBP limiting gait. Personal Factors Other Personal Factors That May Effect Chronicity of balance Therapy/Recovery dysfunction Dislocated L shoulder PT-OP-C Subjective Start: 08/08/18 16:30 Freq: Status: Active Protocol: Document 09/27/18 12:00 GGD (Rec: 09/27/18 17:04 GGD [id number]) OP-PT Subjective Patient Comments Patient Comments Pt states he walked two mile and is still sore and stiff. PT-OP-D Balance Start: 08/08/18 16:30 Freq: Status: Active Protocol: Document 08/12/18 10:30 LRN (Rec: 08/12/18 16:31 LRN [id number]) Miller Balance Assessment Evaluation Sitting to Standing Ability Independent w/out Hands Unsupported Stance Safely- 2 minutes Sitting Unsupported, Feet on Floor Safely- 2 minutes Standing to Sitting Ability Safely, Minimal Hand Use Transfer Ability Safely, Minimal Hand Use Unsupported Stance- Eyes Closed Safely, 10 seconds Unsupported Stance- Eyes Open Supervision to maintain Reaching Forward Standing Safely, 5 inches Pick- Up Object From Floor Independent/Safe Look Behind Shoulder - Standing Shifts Weight Well Turning 360 Degrees Turns slowly, but safely Unsupported Stance, Alternating Feet on (I)- 8 Steps in 20 secs Stair Unsupported Tandem Stance Balance Lost- Step/Stand Unilateral Leg Stance Lifts Leg/Unable to Hold Total Score Miller Total Score (out of 56 points) 45 Miller Impairment Rating 1 to 19% Impaired (Score 45-55 ) PT-OP-E Functional Tests Start: 08/08/18 16:30 Freq: Status: Active Protocol: Document 08/19/18 13:38 LRN (Rec: 08/19/18 15:19 LRN [id number]) Functional Tests Other Gait speed Name of Test Gt speed of 20' Score 2.5 ft/sec Comment No assistive device needed. PT-OP-G Mobility & Gait Start: 08/08/18 16:30 Freq: Status: Active Protocol: Document 08/12/18 10:30 LRN (Rec: 08/12/18 16:31 LRN [id number]) OP Mobility Evaluation Transfers Sit to Stand Pt uses the chair to stand by pushing with his legs against if for support and stability. OP Gait Assessment Gait Gait Assistance Required: Independent Distance (Feet) 100 Able to Maintain Weight Bearing Status Yes During Gait Assistive Devices Assistive Device None Gait Deviations General Gait Pattern Lateral Trunk Lean Comments Gait Comments Lateral trunk lean posturing during gait. PT-OP-J Posture/Palpation/Skin Start: 08/08/18 16:30 Freq: Status: Active Protocol: Document 08/12/18 10:30 LRN (Rec: 08/12/18 16:31 LRN [id number]) Posture Evaluation Comments Posture Comments Standing: Level hips, C-curve of thoracolumbar spine with apex on left, low R shoulder and scapula, head tilt R, mild forward head, flat back, protruding abdomen, sway back. Palpation Assessment Location Low back Palpation Location Low back at level of L5 Palpation Findings Tenderness PT-OP-K Range of Motion Start: 08/08/18 16:30 Freq: Status: Active Protocol: Document 08/19/18 13:38 LRN (Rec: 08/19/18 15:19 LRN [id number]) Lumbar Spine Range of Motion Lumbar Spine Active Degrees Testing Position Standing Flexion 57 Extension 10 Rotation Left 10 Rotation Right 15 Lateral Flexion Left 20 Lateral Flexion Right 13 ROM Limitations Soft Tissue Tightness Comments Rotation measurement is approximate ROM. Hip Goniometric Range of Motion Hip Right Passive Testing Position Supine Flexion w/Knee Flexed 110 Straight Leg Raise 50 Abduction 40 Internal Rotation 25 External Rotation 55 Left Passive Testing Position Supine Flexion w/Knee Flexed 110 Straight Leg Raise 50 Abduction 40 Internal Rotation 30 External Rotation 60 Hip ROM Limitations Comments Passive hip AD is 10 deg's bilaterally. PT-OP-M Strength Start: 08/08/18 16:30 Freq: Status: Active Protocol: Document 08/12/18 10:30 LRN (Rec: 08/12/18 16:31 LRN [id number]) Trunk Strength Trunk Manual Muscle Testing Testing Position Standing Flexion 3 Fair Extension 5 Normal Rotation Left 3 Fair Rotation Right 4 Good Lateral Flexion Left 5 Normal Lateral Flexion Right 5 Normal Hip Strength Hip Manual Muscle Testing Right Flexion (L2) 3 Fair Extension (S1) 3 Fair Left Flexion (L2) 3 Fair Extension (S1) 3 Fair Knee Strength Knee Manual Muscle Testing Right Reason Not Measured WFL Left Reason Not Measured WFL Ankle/Foot Strength Ankle and Foot Manual Muscle Testing Right Dorsiflexion (L4) 4 Good Plantarflexion (S1) 5 Normal Left Dorsiflexion (L4) 3 Fair Plantarflexion (S1) 5 Normal PT-OP-Q Treatments Start: 08/08/18 16:30 Freq: Status: Active Protocol: Document 09/27/18 12:00 GGD (Rec: 09/27/18 17:04 GGD [id number]) Cardio Equipment Bicycle (Upright) Duration (Minutes) 10 Resistance 3 Seat Position 9 Therapeutic Exercises Supine Exercises Chest breathing Supine Exercise Name Chest breathing with TA held Reps/Minutes 5' Comments Neuro re-ed to train holding of TA while breathing Deep Breathing Supine Exercise Name Breathing review (deep and chest) Reps/Minutes 1' TA tightening Supine Exercise Name TA tightening neuro re-ed Reps/Minutes 2' Piriformis Supine Exercise Name Knee to opposite shoulder (pt not able to do X-legged position stretch) Side bilateral Reps/Minutes 5' Comments Extra time taken for training Sitting Exercises Trunk rotation Sitting Exercise Name Trunk rotation neuro re-ed Side bilateral Resistance Manual and none Reps/Minutes L 10 x 3, R 10 x 2 Comments Extra time taken to improve awareness of performing trunk rotation Ankle EV Sitting Exercise Name Ankle EV Side bilateral Resistance Lev 1 T-Band, Double band strength Reps/Minutes 30x Ankle DF Sitting Exercise Name Ankle DF Side bilateral Resistance 2# Reps/Minutes 30x Abdominal strengthening Sitting Exercise Name Neuro re-ed for TA and rot activation Side bilateral Reps/Minutes 6' Comments Pt not able to identify an oblique contraction. Not able to maintain TA Sit to Stand Sitting Exercise Name Sit to Stand Reps/Minutes 10 x Comments SBA. Trying to keep pt from pushing w/back of legs against sit surface Neuro Re-Education Treatment Balance Activities BOSU Details Standing on BOSU Ball for balance and ankle strengthening, weight shift Equipment Stair railing Reps/Duration 4' Comments Fair balance PT-OP-T Assessment and Plan Start: 08/08/18 16:30 Freq: Status: Active Protocol: Document 09/27/18 12:00 GGD (Rec: 09/27/18 17:04 GGD [email or web address]) Physical Therapy Assessment Goals Back pain Impairment Back pain rated 5/10 hindering ability to brush teeth and walk > 1/2 mile Short Term Goal (STG) Pt will be able to brush his teeth with back pain no greater than 1-2/10. STG Duration 09/23/18 Animal Husbandry Teacher Goal (LTG) Pt will be able to walk with spouse > 1/2 mile with back pain 3/10 or less. LTG Duration 11/04/18 Gait Impairment Slow speed of gait (2.8 ft/sec ) Jail Goal (LTG) Improve speed of gait to norm of 3.08 ft/sec - preferred for men in 70's. LTG Duration 11/04/18 Stairs Impairment Pt w/50% confidence with safe stair ambulation w/railing, one step gait Animal Husbandry Teacher Goal (LTG) Pt will be improve confidence level to 60% with stair ambulation w/railing, single step or reciprocal gait. LTG Duration 11/04/18 Balance Impairment MILLER score of 45 = Safe ambulation with assistive device Jail Goal (LTG) Improve balance for safe ambulation without an assistive device (MILLER score of > 45) LTG Duration 11/04/18 HEP Impairment Lacks appropriate HEP Jail Goal (LTG) Pt will be independent on a self care HEP. LTG Duration 11/04/18 Assessment Summary Assessment Pt improving with sit to stand control and balance. He needs cues for TA contraction. Physical Therapy Plan Frequency and Duration Frequency of Treatment 2x/Week Plan of Care Start Date 08/12/18 Plan of Care End Date 11/04/18 Next Visit Focus/Plan Next Note Type Treatment Note Next Visit Plan Progress core program as able with addition of resistance to rotation if pt able to engage obliques. Increase pt self awareness for chest breathing in supine; assess if pt able to perform stand to sit without plopping and strengthen LE's to improve transfer function; balance training. Review ankle EV/IV in sidelie; if L rot is equal to R rot; supine TA holding with chest breathing.
--- NOTE | 2018-09-30 15:19 | PT.OTN ---
Current Diagnoses Other abnormalities of gait and mobility (09/30/18) Other general symptoms and signs (09/30/18) Physical Therapy Treatment Note PT-OP-A Visit Information Start: 08/08/18 16:30 Freq: Status: Active Protocol: Document 09/30/18 09:50 LRN (Rec: 09/30/18 10:31 LRN [id number]) Out-Patient Physical Therapy Visit Information Visit Information Visit Type Treatment Note Visit Start Time 09:50 Visit Stop Time 10:30 Total Visit Minutes 40 Visit Number 9 Evaluation Information Evaluation Date 08/12/18 Precautions Precautions Balance dysfunction Back pain PT-OP-B Current Condition Start: 08/08/18 16:30 Freq: Status: Active Protocol: Document 08/12/18 10:30 LRN (Rec: 08/12/18 16:31 LRN [id number]) Current Condition History of Current Condition Onset Date 7 yrs ago Current Complaints Difficulty walking due to back pain and dec'd balance. 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 He claims the surgery was botched and since that time he has had to relearned how to walk. He has had rehabilitation off/on for the past 7 yrs in [place], [place]. He has trouble with being able to walk straight due to decreased balance. He denies fall history in the past year. The pt also complains of insidious onset of LBP that is present with activity and exercise. His pain is achy in nature. He is having difficulty walking more than 1/2 mile, standing to brush his teeth, and with sit to stand due to back pain. He has no pain with sitting or sleeping. Prior Treatments and Tests Rehabilitation for gait, on/ off for past 7 years. Future Testing and Treatments Planned None Treatment Goals Patient/Caregiver Goals Pt goal is to: 1) Walk stairs with >60% confidence (currently 50% confidence). 2) Increase speed of gait to keep up with . 3) Decrease back pain with activity. Prior Functional Status Baseline Function- ADL's Independent Baseline Function- Mobility Independent Baseline Function- Gait Able to walk 1 mile without difficulty. Up/Down stairs one at a time. Baseline Function- Recreation/Hobbies Walking: TM x 15' Stationary Biking x 15' Current Functional Impairments (Reported) Functional Limitations- ADL's Difficulty transfers: Sit to Stand. Difficulty Brushing teeth due to pain. Functional Limitations- Mobility/Gait Stair ambulation with railing one at a time with 50% confidence. Gait 1/2 mile before onset of LBP limiting gait. Personal Factors Other Personal Factors That May Effect Chronicity of balance Therapy/Recovery dysfunction Dislocated L shoulder PT-OP-C Subjective Start: 08/08/18 16:30 Freq: Status: Active Protocol: Document 09/30/18 09:50 LRN (Rec: 09/30/18 10:31 LRN [id number]) OP-PT Subjective Patient Comments Patient Comments In 3 weeks will go back to [place] to see initial neurologist. States he feels his balance is a little better , not as wobbly. Not consistent with ex bike at home. Back doesn't bother as much walking, last 1/4 mile pain is 4/10. Brushing teeth, pain ranges 0-6/10. PT-OP-D Balance Start: 08/08/18 16:30 Freq: Status: Active Protocol: Document 08/12/18 10:30 LRN (Rec: 08/12/18 16:31 LRN [id number]) Stuart Balance Assessment Evaluation Sitting to Standing Ability Independent w/out Hands Unsupported Stance Safely- 2 minutes Sitting Unsupported, Feet on Floor Safely- 2 minutes Standing to Sitting Ability Safely, Minimal Hand Use Transfer Ability Safely, Minimal Hand Use Unsupported Stance- Eyes Closed Safely, 10 seconds Unsupported Stance- Eyes Open Supervision to maintain Reaching Forward Standing Safely, 5 inches Pick- Up Object From Floor Independent/Safe Look Behind Shoulder - Standing Shifts Weight Well Turning 360 Degrees Turns slowly, but safely Unsupported Stance, Alternating Feet on (I)- 8 Steps in 20 secs Stair Unsupported Tandem Stance Balance Lost- Step/Stand Unilateral Leg Stance Lifts Leg/Unable to Hold Total Score Stuart Total Score (out of 56 points) 45 Stuart Impairment Rating 1 to 19% Impaired (Score 45-55 ) PT-OP-E Functional Tests Start: 08/08/18 16:30 Freq: Status: Active Protocol: Document 08/19/18 13:38 LRN (Rec: 08/19/18 15:19 LRN [id number]) Functional Tests Other Gait speed Name of Test Gt speed of 20' Score 2.5 ft/sec Comment No assistive device needed. PT-OP-G Mobility & Gait Start: 08/08/18 16:30 Freq: Status: Active Protocol: Document 08/12/18 10:30 LRN (Rec: 08/12/18 16:31 LRN [id number]) OP Mobility Evaluation Transfers Sit to Stand Pt uses the chair to stand by pushing with his legs against if for support and stability. OP Gait Assessment Gait Gait Assistance Required: Independent Distance (Feet) 100 Able to Maintain Weight Bearing Status Yes During Gait Assistive Devices Assistive Device None Gait Deviations General Gait Pattern Lateral Trunk Lean Comments Gait Comments Lateral trunk lean posturing during gait. PT-OP-J Posture/Palpation/Skin Start: 08/08/18 16:30 Freq: Status: Active Protocol: Document 08/12/18 10:30 LRN (Rec: 08/12/18 16:31 LRN [id number]) Posture Evaluation Comments Posture Comments Standing: Level hips, C-curve of thoracolumbar spine with apex on left, low R shoulder and scapula, head tilt R, mild forward head, flat back, protruding abdomen, sway back. Palpation Assessment Location Low back Palpation Location Low back at level of L5 Palpation Findings Tenderness PT-OP-K Range of Motion Start: 08/08/18 16:30 Freq: Status: Active Protocol: Document 08/19/18 13:38 LRN (Rec: 08/19/18 15:19 LRN [id number]) Lumbar Spine Range of Motion Lumbar Spine Active Degrees Testing Position Standing Flexion 57 Extension 10 Rotation Left 10 Rotation Right 15 Lateral Flexion Left 20 Lateral Flexion Right 13 ROM Limitations Soft Tissue Tightness Comments Rotation measurement is approximate ROM. Hip Goniometric Range of Motion Hip Right Passive Testing Position Supine Flexion w/Knee Flexed 110 Straight Leg Raise 50 Abduction 40 Internal Rotation 25 External Rotation 55 Left Passive Testing Position Supine Flexion w/Knee Flexed 110 Straight Leg Raise 50 Abduction 40 Internal Rotation 30 External Rotation 60 Hip ROM Limitations Comments Passive hip AD is 10 deg's bilaterally. PT-OP-M Strength Start: 08/08/18 16:30 Freq: Status: Active Protocol: Document 08/12/18 10:30 LRN (Rec: 08/12/18 16:31 LRN [id number]) Trunk Strength Trunk Manual Muscle Testing Testing Position Standing Flexion 3 Fair Extension 5 Normal Rotation Left 3 Fair Rotation Right 4 Good Lateral Flexion Left 5 Normal Lateral Flexion Right 5 Normal Hip Strength Hip Manual Muscle Testing Right Flexion (L2) 3 Fair Extension (S1) 3 Fair Left Flexion (L2) 3 Fair Extension (S1) 3 Fair Knee Strength Knee Manual Muscle Testing Right Reason Not Measured WFL Left Reason Not Measured WFL Ankle/Foot Strength Ankle and Foot Manual Muscle Testing Right Dorsiflexion (L4) 4 Good Plantarflexion (S1) 5 Normal Left Dorsiflexion (L4) 3 Fair Plantarflexion (S1) 5 Normal PT-OP-Q Treatments Start: 08/08/18 16:30 Freq: Status: Active Protocol: Document 09/30/18 09:50 LRN (Rec: 09/30/18 10:31 LRN [id number]) Cardio Equipment Bicycle (Upright) Duration (Minutes) 10 Resistance 4 Seat Position 9 Therapeutic Exercises Supine Exercises SKTC Supine Exercise Name SKTC Side left Reps/Minutes 1 x 30 sec hold Chest breathing Supine Exercise Name Chest breathing with TA held Reps/Minutes 8' Comments Neuro re-ed to train holding of TA while breathing&Assist w /stretch reflex Deep Breathing Supine Exercise Name Breathing review (deep and chest) Reps/Minutes 1' TA tightening Supine Exercise Name TA tightening neuro re-ed Reps/Minutes 2' Piriformis Supine Exercise Name Knee to opposite shoulder (pt not able to do X-legged position stretch) Side bilateral Reps/Minutes 5' Comments Extra time taken for training Fig 4 stretch Side bilateral Reps/Minutes 4' Comments R>L. Extra time taken for training Hamstring/LE neural stretch Side bilateral Reps/Minutes 4' Comments Extra time taken for training Sitting Exercises Chest breathing training Sitting Exercise Name Visual feedback w/mirror for training Equipment Used Mirror Reps/Minutes 10' Abdominal strengthening Sitting Exercise Name Neuro re-ed for TA and rot activation Side bilateral Reps/Minutes 6' Comments Pt not able to maintain TA Sit to Stand Sitting Exercise Name Sit to Stand Reps/Minutes 10 x Comments SBA. Trying to keep pt from pushing w/back of legs against sit surface Neuro Re-Education Treatment Other Activities Breathing through chest Details See supine exercises PT-OP-T Assessment and Plan Start: 08/08/18 16:30 Freq: Status: Active Protocol: Document 09/30/18 09:50 LRN (Rec: 09/30/18 10:31 LRN [id number]) Physical Therapy Assessment Assessment Summary Assessment Pt not familiar with LE hamstring/neural stretch and needed review of other stretches due to memory deficits. Pt has slight improvement in use of upper chest for breathing vs abdominal breathing. Improvement noted with sit to stand control. Physical Therapy Plan Frequency and Duration Frequency of Treatment 2x/Week Plan of Care Start Date 08/12/18 Plan of Care End Date 11/04/18 Next Visit Focus/Plan Next Note Type Progress Note Next Visit Plan Progress core program as able with addition of resistance to rotation if pt able to engage obliques. Increase pt self awareness for chest breathing in supine; strengthen LE's to improve transfer function; balance training. Review ankle EV/IV in sidelie; if L rot is equal to R rot; supine TA holding with chest breathing.
--- NOTE | 2018-10-04 16:17 | PT.OTN ---
Current Diagnoses Other abnormalities of gait and mobility (10/04/18) Other general symptoms and signs (10/04/18) Physical Therapy Treatment Note PT-OP-A Visit Information Start: 08/08/18 16:30 Freq: Status: Active Protocol: Document 10/04/18 09:47 LRN (Rec: 10/04/18 10:01 LRN [id number]) Out-Patient Physical Therapy Visit Information Visit Information Visit Type Progress Note Visit Start Time 09:47 Visit Stop Time 10:37 Total Visit Minutes 50 Visit Number 10 Evaluation Information Evaluation Date 08/12/18 Precautions Precautions Balance dysfunction Back pain PT-OP-B Current Condition Start: 08/08/18 16:30 Freq: Status: Active Protocol: Document 08/12/18 10:30 LRN (Rec: 08/12/18 16:31 LRN [id number]) Current Condition History of Current Condition Onset Date 7 yrs ago Current Complaints Difficulty walking due to back pain and dec'd balance. 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 He claims the surgery was botched and since that time he has had to relearned how to walk. He has had rehabilitation off/on for the past 7 yrs in [place], [place]. He has trouble with being able to walk straight due to decreased balance. He denies fall history in the past year. The pt also complains of insidious onset of LBP that is present with activity and exercise. His pain is achy in nature. He is having difficulty walking more than 1/2 mile, standing to brush his teeth, and with sit to stand due to back pain. He has no pain with sitting or sleeping. Prior Treatments and Tests Rehabilitation for gait, on/ off for past 7 years. Future Testing and Treatments Planned None Treatment Goals Patient/Caregiver Goals Pt goal is to: 1) Walk stairs with >60% confidence (currently 50% confidence). 2) Increase speed of gait to keep up with . 3) Decrease back pain with activity. Prior Functional Status Baseline Function- ADL's Independent Baseline Function- Mobility Independent Baseline Function- Gait Able to walk 1 mile without difficulty. Up/Down stairs one at a time. Baseline Function- Recreation/Hobbies Walking: TM x 15' Stationary Biking x 15' Current Functional Impairments (Reported) Functional Limitations- ADL's Difficulty transfers: Sit to Stand. Difficulty Brushing teeth due to pain. Functional Limitations- Mobility/Gait Stair ambulation with railing one at a time with 50% confidence. Gait 1/2 mile before onset of LBP limiting gait. Personal Factors Other Personal Factors That May Effect Chronicity of balance Therapy/Recovery dysfunction Dislocated L shoulder PT-OP-C Subjective Start: 08/08/18 16:30 Freq: Status: Active Protocol: Document 10/04/18 09:47 LRN (Rec: 10/04/18 10:01 LR [id number]) OP-PT Subjective Patient Comments Patient Comments States pain with brushing of teeth is 2-3/10. Walking pain is ~2/10. States he is 100% confidence in stair ambulation with a single step at a time and use of railing. He is 50% confident with use of railing and reciprocal gait on stairs . He feels there has been no change in his balance about the same. Patient Reported Progress Same Patient Questionnaires Oswestry Low Back Index Oswestry Score 13 Oswestry Impairment 1 to 19% Impaired (Score 1-19) PT-OP-D Balance Start: 08/08/18 16:30 Freq: Status: Active Protocol: Document 10/04/18 09:47 LRN (Rec: 10/04/18 10:01 LRN [id number]) Balance Tests Miller Balance Test Miller Balance Test Score [id number] Miller Impairment Rating 1 to 19% Impaired (Score 45-55 ) Miller Balance Assessment Evaluation Sitting to Standing Ability Independent w/out Hands Unsupported Stance Safely- 2 minutes Sitting Unsupported, Feet on Floor Safely- 2 minutes Standing to Sitting Ability Safely, Minimal Hand Use Transfer Ability Safely, Minimal Hand Use Unsupported Stance- Eyes Closed Safely, 10 seconds Unsupported Stance- Eyes Open Independent, 1 minute Reaching Forward Standing Safely, 5 inches Pick- Up Object From Floor Independent/Safe Look Behind Shoulder - Standing Shifts Weight Well Turning 360 Degrees Turns Bilateral, < 4 secs Unsupported Stance, Alternating Feet on (I)- 8 Steps in 20 secs Stair Unsupported Tandem Stance Balance Lost- Step/Stand Unilateral Leg Stance Lifts Leg/Unable to Hold Total Score Miller Total Score (out of 56 points) 48 Miller Impairment Rating 1 to 19% Impaired (Score 45-55 ) PT-OP-E Functional Tests Start: 08/08/18 16:30 Freq: Status: Active Protocol: Document 10/04/18 09:47 LRN (Rec: 10/04/18 16:15 LRN [id number]) Functional Tests Timed Up and Go (TUG) Score 12 Comments No AD TUG Impairment Rating 20 to <40% Impaired (Score 12- 13) Other Gait speed Name of Test Gt speed of 20' Score 3.2 ft/sec Comment No assistive device needed. PT-OP-G Mobility & Gait Start: 08/08/18 16:30 Freq: Status: Active Protocol: Document 08/12/18 10:30 LRN (Rec: 08/12/18 16:31 LRN [id number]) OP Mobility Evaluation Transfers Sit to Stand Pt uses the chair to stand by pushing with his legs against if for support and stability. OP Gait Assessment Gait Gait Assistance Required: Independent Distance (Feet) 100 Able to Maintain Weight Bearing Status Yes During Gait Assistive Devices Assistive Device None Gait Deviations General Gait Pattern Lateral Trunk Lean Comments Gait Comments Lateral trunk lean posturing during gait. PT-OP-J Posture/Palpation/Skin Start: 08/08/18 16:30 Freq: Status: Active Protocol: Document 08/12/18 10:30 LRN (Rec: 08/12/18 16:31 LRN [id number]) Posture Evaluation Comments Posture Comments Standing: Level hips, C-curve of thoracolumbar spine with apex on left, low R shoulder and scapula, head tilt R, mild forward head, flat back, protruding abdomen, sway back. Palpation Assessment Location Low back Palpation Location Low back at level of L5 Palpation Findings Tenderness PT-OP-K Range of Motion Start: 08/08/18 16:30 Freq: Status: Active Protocol: Document 08/19/18 13:38 LRN (Rec: 08/19/18 15:19 LRN [id number]) Lumbar Spine Range of Motion Lumbar Spine Active Degrees Testing Position Standing Flexion 57 Extension 10 Rotation Left 10 Rotation Right 15 Lateral Flexion Left 20 Lateral Flexion Right 13 ROM Limitations Soft Tissue Tightness Comments Rotation measurement is approximate ROM. Hip Goniometric Range of Motion Hip Right Passive Testing Position Supine Flexion w/Knee Flexed 110 Straight Leg Raise 50 Abduction 40 Internal Rotation 25 External Rotation 55 Left Passive Testing Position Supine Flexion w/Knee Flexed 110 Straight Leg Raise 50 Abduction 40 Internal Rotation 30 External Rotation 60 Hip ROM Limitations Comments Passive hip AD is 10 deg's bilaterally. PT-OP-M Strength Start: 08/08/18 16:30 Freq: Status: Active Protocol: Document 08/12/18 10:30 LRN (Rec: 08/12/18 16:31 LRN [id number]) Trunk Strength Trunk Manual Muscle Testing Testing Position Standing Flexion 3 Fair Extension 5 Normal Rotation Left 3 Fair Rotation Right 4 Good Lateral Flexion Left 5 Normal Lateral Flexion Right 5 Normal Hip Strength Hip Manual Muscle Testing Right Flexion (L2) 3 Fair Extension (S1) 3 Fair Left Flexion (L2) 3 Fair Extension (S1) 3 Fair Knee Strength Knee Manual Muscle Testing Right Reason Not Measured WFL Left Reason Not Measured WFL Ankle/Foot Strength Ankle and Foot Manual Muscle Testing Right Dorsiflexion (L4) 4 Good Plantarflexion (S1) 5 Normal Left Dorsiflexion (L4) 3 Fair Plantarflexion (S1) 5 Normal PT-OP-Q Treatments Start: 08/08/18 16:30 Freq: Status: Active Protocol: Document 10/04/18 09:47 LRN (Rec: 10/04/18 10:01 LRN [id number]) Cardio Equipment Bicycle (Upright) Duration (Minutes) 10 Resistance 4 Seat Position 9 Therapeutic Exercises Supine Exercises SKTC Supine Exercise Name SKTC Side left Chest breathing Supine Exercise Name Chest breathing with TA held Reps/Minutes 2' Comments Neuro re-ed to train holding of TA while breathing&Assist w /stretch reflex Fig 4 stretch Side bilateral Reps/Minutes 4' Comments R>L. Hamstring/LE neural stretch Side bilateral Reps/Minutes 4' Gait Training Gait Activity Stairs Description Up/Down 6 steps Device Used Railing Level of Assistance Inde Distance/Duration 3' Comments Reciprocal gait and single stepping gait. Neuro Re-Education Treatment Balance Activities Wgt shift Details Step ups on 6 step Comments 8x in 10 secs. Looking behind and 360 deg turning Details Looking behind for weight shifting; 360 deg turning for mobility/balance Surface Level Reps/Duration 3' Comments Pt stable. 360 deg L turning is 3.7; R turning is 3.1. Standing reach Details Reaching forward & to the ground Surface Level Reps/Duration 3' Comments Foward reach - 12 Pt able to touch the ground without LOB Tandem Stance Details Tandem with L foot and with R foot behind Surface Level Comments Pt needs CGA to get toe/heel positioning. R foot behind: 7 L foot behind: 2 SLS Details EO, SLS Surface Level PT-OP-T Assessment and Plan Start: 08/08/18 16:30 Freq: Status: Active Protocol: Document 10/04/18 09:47 LRN (Rec: 10/04/18 10:01 LRN [id number]) Physical Therapy Assessment Goals Back pain Impairment Back pain rated 5/10 hindering ability to brush teeth and walk > 1/2 mile Short Term Goal (STG) Pt will be able to brush his teeth with back pain no greater than 1-2/10. STG Duration 09/23/18 (10/04/18: Pain is rated 2-3/10) Nursery Technician Goal (LTG) Pt will be able to walk with spouse > 1/2 mile with back pain 3/10 or less. LTG Duration 11/04/18 (10/04/18: GOAL MET. Pain is rated 2/10 ) Gait Impairment Slow speed of gait (2.8 ft/sec ) Senior Care Goal (LTG) Improve speed of gait to norm of 3.08 ft/sec - preferred for men in 70's. LTG Duration 11/04/18 (10/04/18: GOAL MET. Gait Speed is 3.2 ft/sec) Stairs Impairment Pt w/50% confidence with safe stair ambulation w/railing, one step gait Nursery Technician Goal (LTG) Pt will be improve confidence level to 60% with stair ambulation w/railing, single step or reciprocal gait. LTG Duration 11/04/18 (10/04/18: Pt reports 50 % confidence) Balance Impairment MILLER score of 45 = Safe ambulation with assistive device Nursery Technician Goal (LTG) Improve balance for safe ambulation without an assistive device (MILLER score of > 45) LTG Duration 11/04/18 (10/04/18: GOAL MET. Miller score is 48) HEP Impairment Lacks appropriate HEP Senior Care Goal (LTG) Pt will be independent on a self care HEP. LTG Duration 11/04/18 (10/04/18: Progressing) Assessment Summary Assessment Pt had TUG score of 12 secs (< 13.5 sec's); therefore indicating reduced risk of falling with 20<40% impairment . Gt speed is 3.2 ft/sec (> preferred for male in 70's is 3.08). He has met the goal for reduced back pain with his verbal pain rating 2-3/10. His balance has improved per MILLER Balance score indicating he is less likely to fall without the use of an assistive device. During balance testing his only area of deficit was in single leg standing. He is not able to tandem stand or single leg stance due to loss of balance. The pt demonstrates very poor core stabilization and would benefit from skilled physical therapy to improve his awareness of his core and how to stabilize; therefore improving his standing balance and his perception of improved stability. The pt is planning on leaving for a 2 week trip in a couple of weeks . The pt has not yet decided if he will continue with therapy on his return from his trip due to his finances. The pt may chose to discharge from therapy prior to his trip or will return to therapy after his trip for 4 more weeks of therapy. Physical Therapy Plan Frequency and Duration Frequency of Treatment 2x/Week Plan of Care Start Date 10/04/18 Plan of Care End Date 11/29/18 Therapeutic Interventions Therapeutic Interventions Balance Training Gait Training Home Exercise Program Manual Therapy Neuromuscular Re-education Patient/Caregiver Education Self-Care/Home Management Soft Tissue Mobilization Therapeutic Exercises Modalities Cold Pack/Ice Massage Electric Stimulation Hot Packs Ultrasound Next Visit Focus/Plan Next Note Type Treatment Note Next Visit Plan Focus on progressing single leg standing & core stabilization with addition of resistance for rotation if pt is able to engage obliques. Increase pt self awareness for chest breathing in supine. Review ankle EV/IV in sidelie; and check for need of LE's strengthening for improving transfer function.
--- NOTE | 2018-10-07 11:23 | PT.OTN ---
Current Diagnoses Other abnormalities of gait and mobility (10/07/18) Other general symptoms and signs (10/07/18) Physical Therapy Treatment Note PT-OP-A Visit Information Start: 08/08/18 16:30 Freq: Status: Active Protocol: Document 10/07/18 10:33 LRN (Rec: 10/07/18 11:23 LRN [id number]) Out-Patient Physical Therapy Visit Information Visit Information Visit Type Treatment Note Visit Start Time 10:33 Visit Stop Time 11:17 Total Visit Minutes 44 Visit Number 11 Evaluation Information Evaluation Date 08/12/18 Precautions Precautions Balance dysfunction Back pain PT-OP-B Current Condition Start: 08/08/18 16:30 Freq: Status: Active Protocol: Document 08/12/18 10:30 LRN (Rec: 08/12/18 16:31 LRN [id number]) Current Condition History of Current Condition Onset Date 7 yrs ago Current Complaints Difficulty walking due to back pain and dec'd balance. 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 He claims the surgery was botched and since that time he has had to relearned how to walk. He has had rehabilitation off/on for the past 7 yrs in [place], [place]. He has trouble with being able to walk straight due to decreased balance. He denies fall history in the past year. The pt also complains of insidious onset of LBP that is present with activity and exercise. His pain is achy in nature. He is having difficulty walking more than 1/2 mile, standing to brush his teeth, and with sit to stand due to back pain. He has no pain with sitting or sleeping. Prior Treatments and Tests Rehabilitation for gait, on/ off for past 7 years. Future Testing and Treatments Planned None Treatment Goals Patient/Caregiver Goals Pt goal is to: 1) Walk stairs with >60% confidence (currently 50% confidence). 2) Increase speed of gait to keep up with . 3) Decrease back pain with activity. Prior Functional Status Baseline Function- ADL's Independent Baseline Function- Mobility Independent Baseline Function- Gait Able to walk 1 mile without difficulty. Up/Down stairs one at a time. Baseline Function- Recreation/Hobbies Walking: TM x 15' Stationary Biking x 15' Current Functional Impairments (Reported) Functional Limitations- ADL's Difficulty transfers: Sit to Stand. Difficulty Brushing teeth due to pain. Functional Limitations- Mobility/Gait Stair ambulation with railing one at a time with 50% confidence. Gait 1/2 mile before onset of LBP limiting gait. Personal Factors Other Personal Factors That May Effect Chronicity of balance Therapy/Recovery dysfunction Dislocated L shoulder PT-OP-C Subjective Start: 08/08/18 16:30 Freq: Status: Active Protocol: Document 10/07/18 10:33 LRN (Rec: 10/07/18 11:23 LRN [id number]) OP-PT Subjective Patient Comments Patient Comments States same. He has been working on standing heel to toe and notices when he stiffens his balance is worse than when he is relaxed. Patient Questionnaires ABC- Activity Specific Balance Confidence Scale ABC Score 85.6 ABC Functional Impairment 1 to <20% Impaired (Score 81- 99) PT-OP-D Balance Start: 08/08/18 16:30 Freq: Status: Active Protocol: Document 10/04/18 09:47 LRN (Rec: 10/04/18 10:01 LRN [id number]) Balance Tests Stuart Balance Test Sutart Balance Test Score [id number] Stuart Impairment Rating 1 to 19% Impaired (Score 45-55 ) Stuart Balance Assessment Evaluation Sitting to Standing Ability Independent w/out Hands Unsupported Stance Safely- 2 minutes Sitting Unsupported, Feet on Floor Safely- 2 minutes Standing to Sitting Ability Safely, Minimal Hand Use Transfer Ability Safely, Minimal Hand Use Unsupported Stance- Eyes Closed Safely, 10 seconds Unsupported Stance- Eyes Open Independent, 1 minute Reaching Forward Standing Safely, 5 inches Pick- Up Object From Floor Independent/Safe Look Behind Shoulder - Standing Shifts Weight Well Turning 360 Degrees Turns Bilateral, < 4 secs Unsupported Stance, Alternating Feet on (I)- 8 Steps in 20 secs Stair Unsupported Tandem Stance Balance Lost- Step/Stand Unilateral Leg Stance Lifts Leg/Unable to Hold Total Score Tsuart Total Score (out of 56 points) 48 Stuart Impairment Rating 1 to 19% Impaired (Score 45-55 ) PT-OP-E Functional Tests Start: 08/08/18 16:30 Freq: Status: Active Protocol: Document 10/04/18 09:47 LRN (Rec: 10/04/18 16:15 LRN [id number]) Functional Tests Timed Up and Go (TUG) Score 12 Comments No AD TUG Impairment Rating 20 to <40% Impaired (Score 12- 13) Other Gait speed Name of Test Gt speed of 20' Score 3.2 ft/sec Comment No assistive device needed. PT-OP-G Mobility & Gait Start: 08/08/18 16:30 Freq: Status: Active Protocol: Document 08/12/18 10:30 LRN (Rec: 08/12/18 16:31 LRN [id number]) OP Mobility Evaluation Transfers Sit to Stand Pt uses the chair to stand by pushing with his legs against if for support and stability. OP Gait Assessment Gait Gait Assistance Required: Independent Distance (Feet) 100 Able to Maintain Weight Bearing Status Yes During Gait Assistive Devices Assistive Device None Gait Deviations General Gait Pattern Lateral Trunk Lean Comments Gait Comments Lateral trunk lean posturing during gait. PT-OP-J Posture/Palpation/Skin Start: 08/08/18 16:30 Freq: Status: Active Protocol: Document 08/12/18 10:30 LRN (Rec: 08/12/18 16:31 LRN [id number]) Posture Evaluation Comments Posture Comments Standing: Level hips, C-curve of thoracolumbar spine with apex on left, low R shoulder and scapula, head tilt R, mild forward head, flat back, protruding abdomen, sway back. Palpation Assessment Location Low back Palpation Location Low back at level of L5 Palpation Findings Tenderness PT-OP-K Range of Motion Start: 08/08/18 16:30 Freq: Status: Active Protocol: Document 08/19/18 13:38 LRN (Rec: 08/19/18 15:19 LRN [id number]) Lumbar Spine Range of Motion Lumbar Spine Active Degrees Testing Position Standing Flexion 57 Extension 10 Rotation Left 10 Rotation Right 15 Lateral Flexion Left 20 Lateral Flexion Right 13 ROM Limitations Soft Tissue Tightness Comments Rotation measurement is approximate ROM. Hip Goniometric Range of Motion Hip Right Passive Testing Position Supine Flexion w/Knee Flexed 110 Straight Leg Raise 50 Abduction 40 Internal Rotation 25 External Rotation 55 Left Passive Testing Position Supine Flexion w/Knee Flexed 110 Straight Leg Raise 50 Abduction 40 Internal Rotation 30 External Rotation 60 Hip ROM Limitations Comments Passive hip AD is 10 deg's bilaterally. PT-OP-M Strength Start: 08/08/18 16:30 Freq: Status: Active Protocol: Document 08/12/18 10:30 LRN (Rec: 08/12/18 16:31 LRN [id number]) Trunk Strength Trunk Manual Muscle Testing Testing Position Standing Flexion 3 Fair Extension 5 Normal Rotation Left 3 Fair Rotation Right 4 Good Lateral Flexion Left 5 Normal Lateral Flexion Right 5 Normal Hip Strength Hip Manual Muscle Testing Right Flexion (L2) 3 Fair Extension (S1) 3 Fair Left Flexion (L2) 3 Fair Extension (S1) 3 Fair Knee Strength Knee Manual Muscle Testing Right Reason Not Measured WFL Left Reason Not Measured WFL Ankle/Foot Strength Ankle and Foot Manual Muscle Testing Right Dorsiflexion (L4) 4 Good Plantarflexion (S1) 5 Normal Left Dorsiflexion (L4) 3 Fair Plantarflexion (S1) 5 Normal PT-OP-Q Treatments Start: 08/08/18 16:30 Freq: Status: Active Protocol: Document 10/07/18 10:33 LRN (Rec: 10/07/18 11:23 LRN [id number]) Cardio Equipment Bicycle (Upright) Duration (Minutes) 10 Resistance 4 Seat Position 9 Other rpm at 60+ (goal eventually 70 rpm) Therapeutic Exercises Supine Exercises Anterior hip stretch Supine Exercise Name Supine leg over edge of plinth Side bilateral Comments F/B active hip ext Chest breathing Supine Exercise Name Chest breathing with TA held Reps/Minutes 10' Comments Neuro re-ed to train holding of TA while breathing&Assist w /stretch reflex TA tightening Supine Exercise Name TA tightening neuro re-ed Reps/Minutes 10' Piriformis Supine Exercise Name Knee to opposite shoulder (pt not able to do X-legged position stretch) Side bilateral Reps/Minutes 5' Fig 4 stretch Side bilateral Reps/Minutes 4' Comments R>L. Neuro Re-Education Treatment Balance Activities Tandem Stance Details Tandem with L foot and with R foot behind Surface Level Comments Pt needs CGA to get toe/heel positioning. R foot behind: 7 L foot behind: 2 PT-OP-T Assessment and Plan Start: 08/08/18 16:30 Freq: Status: Active Protocol: Document 10/07/18 10:33 LRN (Rec: 10/07/18 11:23 LRN [id number]) Physical Therapy Assessment Assessment Summary Assessment Pt shows general improvement with ABC score today of 85% self confidence compared to initial of 43%. Pt is not able to stabilize the core due to abdominal breathing and relaxation of TA with breathing. Physical Therapy Plan Frequency and Duration Frequency of Treatment 2x/Week Plan of Care Start Date 10/04/18 Plan of Care End Date 11/29/18 Next Visit Focus/Plan Next Note Type Treatment Note Next Visit Plan Focus on progressing single leg standing & core stabilization. Add resistance for rotation if pt is able to engage obliques. Increase pt self awareness for chest breathing in supine. Review ankle EV/IV in sidelie; and check for need of LE's strengthening for improving transfer function.
--- NOTE | 2018-10-11 17:03 | PT.OTN ---
Current Diagnoses Other abnormalities of gait and mobility (10/11/18) Other general symptoms and signs (10/11/18) Physical Therapy Treatment Note PT-OP-A Visit Information Start: 08/08/18 16:30 Freq: Status: Active Protocol: Document 10/11/18 10:31 LRN (Rec: 10/11/18 11:16 LRN [id number]) Out-Patient Physical Therapy Visit Information Visit Information Visit Type Treatment Note Visit Start Time 10:31 Visit Stop Time 11:16 Total Visit Minutes 45 Visit Number 12 Evaluation Information Evaluation Date 08/12/18 Precautions Precautions Balance dysfunction Back pain PT-OP-B Current Condition Start: 08/08/18 16:30 Freq: Status: Active Protocol: Document 08/12/18 10:30 LRN (Rec: 08/12/18 16:31 LRN [id number]) Current Condition History of Current Condition Onset Date 7 yrs ago Current Complaints Difficulty walking due to back pain and dec'd balance. 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 He claims the surgery was botched and since that time he has had to relearned how to walk. He has had rehabilitation off/on for the past 7 yrs in [place], [place]. He has trouble with being able to walk straight due to decreased balance. He denies fall history in the past year. The pt also complains of insidious onset of LBP that is present with activity and exercise. His pain is achy in nature. He is having difficulty walking more than 1/2 mile, standing to brush his teeth, and with sit to stand due to back pain. He has no pain with sitting or sleeping. Prior Treatments and Tests Rehabilitation for gait, on/ off for past 7 years. Future Testing and Treatments Planned None Treatment Goals Patient/Caregiver Goals Pt goal is to: 1) Walk stairs with >60% confidence (currently 50% confidence). 2) Increase speed of gait to keep up with . 3) Decrease back pain with activity. Prior Functional Status Baseline Function- ADL's Independent Baseline Function- Mobility Independent Baseline Function- Gait Able to walk 1 mile without difficulty. Up/Down stairs one at a time. Baseline Function- Recreation/Hobbies Walking: TM x 15' Stationary Biking x 15' Current Functional Impairments (Reported) Functional Limitations- ADL's Difficulty transfers: Sit to Stand. Difficulty Brushing teeth due to pain. Functional Limitations- Mobility/Gait Stair ambulation with railing one at a time with 50% confidence. Gait 1/2 mile before onset of LBP limiting gait. Personal Factors Other Personal Factors That May Effect Chronicity of balance Therapy/Recovery dysfunction Dislocated L shoulder PT-OP-C Subjective Start: 08/08/18 16:30 Freq: Status: Active Protocol: Document 10/11/18 10:31 LRN (Rec: 10/11/18 11:16 LRN [id number]) OP-PT Subjective Patient Comments Patient Comments Feels his pace of walking is faster than on the TM. PT-OP-D Balance Start: 08/08/18 16:30 Freq: Status: Active Protocol: Document 10/04/18 09:47 LRN (Rec: 10/04/18 10:01 LRN [id number]) Balance Tests Stuart Balance Test Stuart Balance Test Score [id number] Stuart Impairment Rating 1 to 19% Impaired (Score 45-55 ) Stuart Balance Assessment Evaluation Sitting to Standing Ability Independent w/out Hands Unsupported Stance Safely- 2 minutes Sitting Unsupported, Feet on Floor Safely- 2 minutes Standing to Sitting Ability Safely, Minimal Hand Use Transfer Ability Safely, Minimal Hand Use Unsupported Stance- Eyes Closed Safely, 10 seconds Unsupported Stance- Eyes Open Independent, 1 minute Reaching Forward Standing Safely, 5 inches Pick- Up Object From Floor Independent/Safe Look Behind Shoulder - Standing Shifts Weight Well Turning 360 Degrees Turns Bilateral, < 4 secs Unsupported Stance, Alternating Feet on (I)- 8 Steps in 20 secs Stair Unsupported Tandem Stance Balance Lost- Step/Stand Unilateral Leg Stance Lifts Leg/Unable to Hold Total Score Stuart Total Score (out of 56 points) 48 Stuart Impairment Rating 1 to 19% Impaired (Score 45-55 ) PT-OP-E Functional Tests Start: 08/08/18 16:30 Freq: Status: Active Protocol: Document 10/04/18 09:47 LRN (Rec: 10/04/18 16:15 LRN [id number]) Functional Tests Timed Up and Go (TUG) Score 12 Comments No AD TUG Impairment Rating 20 to <40% Impaired (Score 12- 13) Other Gait speed Name of Test Gt speed of 20' Score 3.2 ft/sec Comment No assistive device needed. PT-OP-G Mobility & Gait Start: 08/08/18 16:30 Freq: Status: Active Protocol: Document 08/12/18 10:30 LRN (Rec: 08/12/18 16:31 LRN [id number]) OP Mobility Evaluation Transfers Sit to Stand Pt uses the chair to stand by pushing with his legs against if for support and stability. OP Gait Assessment Gait Gait Assistance Required: Independent Distance (Feet) 100 Able to Maintain Weight Bearing Status Yes During Gait Assistive Devices Assistive Device None Gait Deviations General Gait Pattern Lateral Trunk Lean Comments Gait Comments Lateral trunk lean posturing during gait. PT-OP-J Posture/Palpation/Skin Start: 08/08/18 16:30 Freq: Status: Active Protocol: Document 08/12/18 10:30 LRN (Rec: 08/12/18 16:31 LRN [id number]) Posture Evaluation Comments Posture Comments Standing: Level hips, C-curve of thoracolumbar spine with apex on left, low R shoulder and scapula, head tilt R, mild forward head, flat back, protruding abdomen, sway back. Palpation Assessment Location Low back Palpation Location Low back at level of L5 Palpation Findings Tenderness PT-OP-K Range of Motion Start: 08/08/18 16:30 Freq: Status: Active Protocol: Document 08/19/18 13:38 LRN (Rec: 08/19/18 15:19 LRN [id number]) Lumbar Spine Range of Motion Lumbar Spine Active Degrees Testing Position Standing Flexion 57 Extension 10 Rotation Left 10 Rotation Right 15 Lateral Flexion Left 20 Lateral Flexion Right 13 ROM Limitations Soft Tissue Tightness Comments Rotation measurement is approximate ROM. Hip Goniometric Range of Motion Hip Right Passive Testing Position Supine Flexion w/Knee Flexed 110 Straight Leg Raise 50 Abduction 40 Internal Rotation 25 External Rotation 55 Left Passive Testing Position Supine Flexion w/Knee Flexed 110 Straight Leg Raise 50 Abduction 40 Internal Rotation 30 External Rotation 60 Hip ROM Limitations Comments Passive hip AD is 10 deg's bilaterally. PT-OP-M Strength Start: 08/08/18 16:30 Freq: Status: Active Protocol: Document 08/12/18 10:30 LRN (Rec: 08/12/18 16:31 LRN [id number]) Trunk Strength Trunk Manual Muscle Testing Testing Position Standing Flexion 3 Fair Extension 5 Normal Rotation Left 3 Fair Rotation Right 4 Good Lateral Flexion Left 5 Normal Lateral Flexion Right 5 Normal Hip Strength Hip Manual Muscle Testing Right Flexion (L2) 3 Fair Extension (S1) 3 Fair Left Flexion (L2) 3 Fair Extension (S1) 3 Fair Knee Strength Knee Manual Muscle Testing Right Reason Not Measured WFL Left Reason Not Measured WFL Ankle/Foot Strength Ankle and Foot Manual Muscle Testing Right Dorsiflexion (L4) 4 Good Plantarflexion (S1) 5 Normal Left Dorsiflexion (L4) 3 Fair Plantarflexion (S1) 5 Normal PT-OP-Q Treatments Start: 08/08/18 16:30 Freq: Status: Active Protocol: Document 10/11/18 10:31 LRN (Rec: 10/11/18 11:16 LRN [id number]) Cardio Equipment Treadmill Duration (Minutes) 10 Speed 1.0 Other Hands on side supports, 1.2 speed last 20 sec's Therapeutic Exercises Supine Exercises Chest breathing Supine Exercise Name Chest breathing with TA held Reps/Minutes 8' Comments Neuro re-ed to train holding of TA while breathing&Assist w /stretch reflex TA tightening Supine Exercise Name TA tightening neuro re-ed Reps/Minutes 2' Sidelying Exercises Ankle IV, EV Sidelying Exercise Name Ankle IV/EV Side left Reps/Minutes 30x each Sitting Exercises Trunk rotation Sitting Exercise Name Trunk rotation neuro re-ed Side bilateral Resistance Manual and none Reps/Minutes 10 x 3 Ankle IV Sitting Exercise Name Ankle IV Side bilateral Resistance Lev 2 T-Band, Double band strength Reps/Minutes 30x Ankle EV Sitting Exercise Name Ankle EV Side bilateral Resistance Lev 2 T-Band, Double band strength Reps/Minutes 30x Ankle DF Sitting Exercise Name Ankle DF: knees 90/90 & knees straight Side bilateral Resistance 4# Reps/Minutes 30x each position Sit to Stand Sitting Exercise Name Sit to Stand Reps/Minutes 10 x Comments SBA. Trying to keep pt from pushing w/back of legs against sit surface Neuro Re-Education Treatment Balance Activities Tandem Stance Details Semi-tandem trunk rotation Surface Level Equipment Lev 1 & 2 T-Band Reps/Duration 15x each Self-Care/Home Management Treatment Education Patient Education Home Exercise Program Activities Self-Care/Home Management Activities Issued & reviewed HEP: Use of UE's for improving chest excursion with breathing; Trunk rotation with T-Band resistance in standing. PT-OP-T Assessment and Plan Start: 08/08/18 16:30 Freq: Status: Active Protocol: Document 10/11/18 10:31 LRN (Rec: 10/11/18 11:16 LRN [id number]) Physical Therapy Assessment Assessment Summary Assessment Pt pace on TM appears faster than his normal gait due to his use of UE supports while walking, needed for balance. He feels his normal pace is 1. 2 on TM. Pt needed review of ankle ex's, may need one more recheck (pt forgot IV strengthening). Pt poor core stab due to inabilty to maintain TA contraction during breathing. Physical Therapy Plan Frequency and Duration Frequency of Treatment 2x/Week Plan of Care Start Date 10/04/18 Plan of Care End Date 11/29/18 Next Visit Focus/Plan Next Note Type Treatment Note Next Visit Plan Try TM at 1.0 speed for 10' with pt working on posture and TA/core stabilization; also focus on progressing single leg standing. Progress resistance for rotation. Increase pt self awareness for chest breathing in supine. Review ankle EV/IV with T-Band ; and check for need of LE's strengthening for improving transfer function.
--- NOTE | 2018-10-14 14:46 | PT.OTN ---
Current Diagnoses Other abnormalities of gait and mobility (10/14/18) Other general symptoms and signs (10/14/18) Physical Therapy Treatment Note PT-OP-A Visit Information Start: 08/08/18 16:30 Freq: Status: Active Protocol: Document 10/14/18 10:50 LRN (Rec: 10/14/18 11:34 LRN [id number]) Out-Patient Physical Therapy Visit Information Visit Information Visit Type Treatment Note Visit Start Time 10:50 Visit Stop Time 11:34 Total Visit Minutes 44 Visit Number 13 Evaluation Information Evaluation Date 08/12/18 Precautions Precautions Balance dysfunction Back pain PT-OP-B Current Condition Start: 08/08/18 16:30 Freq: Status: Active Protocol: Document 08/12/18 10:30 LRN (Rec: 08/12/18 16:31 LRN [id number]) Current Condition History of Current Condition Onset Date 7 yrs ago Current Complaints Difficulty walking due to back pain and dec'd balance. 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 He claims the surgery was botched and since that time he has had to relearned how to walk. He has had rehabilitation off/on for the past 7 yrs in [place], [place]. He has trouble with being able to walk straight due to decreased balance. He denies fall history in the past year. The pt also complains of insidious onset of LBP that is present with activity and exercise. His pain is achy in nature. He is having difficulty walking more than 1/2 mile, standing to brush his teeth, and with sit to stand due to back pain. He has no pain with sitting or sleeping. Prior Treatments and Tests Rehabilitation for gait, on/ off for past 7 years. Future Testing and Treatments Planned None Treatment Goals Patient/Caregiver Goals Pt goal is to: 1) Walk stairs with >60% confidence (currently 50% confidence). 2) Increase speed of gait to keep up with . 3) Decrease back pain with activity. Prior Functional Status Baseline Function- ADL's Independent Baseline Function- Mobility Independent Baseline Function- Gait Able to walk 1 mile without difficulty. Up/Down stairs one at a time. Baseline Function- Recreation/Hobbies Walking: TM x 15' Stationary Biking x 15' Current Functional Impairments (Reported) Functional Limitations- ADL's Difficulty transfers: Sit to Stand. Difficulty Brushing teeth due to pain. Functional Limitations- Mobility/Gait Stair ambulation with railing one at a time with 50% confidence. Gait 1/2 mile before onset of LBP limiting gait. Personal Factors Other Personal Factors That May Effect Chronicity of balance Therapy/Recovery dysfunction Dislocated L shoulder PT-OP-C Subjective Start: 08/08/18 16:30 Freq: Status: Active Protocol: Document 10/14/18 10:50 LRN (Rec: 10/14/18 11:34 LRN [id number]) OP-PT Subjective Patient Comments Patient Comments States he did too many ankle ex's so now his L ankle hurts more. No biking at home because his ankle hurts. Has quit walking due to L ankle pain. Not able to tolerate SLS ex's due to L ankle pain. PT-OP-D Balance Start: 08/08/18 16:30 Freq: Status: Active Protocol: Document 10/04/18 09:47 LRN (Rec: 10/04/18 10:01 LRN [id number]) Balance Tests Miller Balance Test Miller Balance Test Score [id number] Miller Impairment Rating 1 to 19% Impaired (Score 45-55 ) Miller Balance Assessment Evaluation Sitting to Standing Ability Independent w/out Hands Unsupported Stance Safely- 2 minutes Sitting Unsupported, Feet on Floor Safely- 2 minutes Standing to Sitting Ability Safely, Minimal Hand Use Transfer Ability Safely, Minimal Hand Use Unsupported Stance- Eyes Closed Safely, 10 seconds Unsupported Stance- Eyes Open Independent, 1 minute Reaching Forward Standing Safely, 5 inches Pick- Up Object From Floor Independent/Safe Look Behind Shoulder - Standing Shifts Weight Well Turning 360 Degrees Turns Bilateral, < 4 secs Unsupported Stance, Alternating Feet on (I)- 8 Steps in 20 secs Stair Unsupported Tandem Stance Balance Lost- Step/Stand Unilateral Leg Stance Lifts Leg/Unable to Hold Total Score Miller Total Score (out of 56 points) 48 Miller Impairment Rating 1 to 19% Impaired (Score 45-55 ) PT-OP-E Functional Tests Start: 08/08/18 16:30 Freq: Status: Active Protocol: Document 10/04/18 09:47 LRN (Rec: 10/04/18 16:15 LRN [id number]) Functional Tests Timed Up and Go (TUG) Score 12 Comments No AD TUG Impairment Rating 20 to <40% Impaired (Score 12- 13) Other Gait speed Name of Test Gt speed of 20' Score 3.2 ft/sec Comment No assistive device needed. PT-OP-G Mobility & Gait Start: 08/08/18 16:30 Freq: Status: Active Protocol: Document 08/12/18 10:30 LRN (Rec: 08/12/18 16:31 LRN [id number]) OP Mobility Evaluation Transfers Sit to Stand Pt uses the chair to stand by pushing with his legs against if for support and stability. OP Gait Assessment Gait Gait Assistance Required: Independent Distance (Feet) 100 Able to Maintain Weight Bearing Status Yes During Gait Assistive Devices Assistive Device None Gait Deviations General Gait Pattern Lateral Trunk Lean Comments Gait Comments Lateral trunk lean posturing during gait. PT-OP-J Posture/Palpation/Skin Start: 08/08/18 16:30 Freq: Status: Active Protocol: Document 08/12/18 10:30 LRN (Rec: 08/12/18 16:31 LRN [id number]) Posture Evaluation Comments Posture Comments Standing: Level hips, C-curve of thoracolumbar spine with apex on left, low R shoulder and scapula, head tilt R, mild forward head, flat back, protruding abdomen, sway back. Palpation Assessment Location Low back Palpation Location Low back at level of L5 Palpation Findings Tenderness PT-OP-K Range of Motion Start: 08/08/18 16:30 Freq: Status: Active Protocol: Document 08/19/18 13:38 LRN (Rec: 08/19/18 15:19 LRN [id number]) Lumbar Spine Range of Motion Lumbar Spine Active Degrees Testing Position Standing Flexion 57 Extension 10 Rotation Left 10 Rotation Right 15 Lateral Flexion Left 20 Lateral Flexion Right 13 ROM Limitations Soft Tissue Tightness Comments Rotation measurement is approximate ROM. Hip Goniometric Range of Motion Hip Right Passive Testing Position Supine Flexion w/Knee Flexed 110 Straight Leg Raise 50 Abduction 40 Internal Rotation 25 External Rotation 55 Left Passive Testing Position Supine Flexion w/Knee Flexed 110 Straight Leg Raise 50 Abduction 40 Internal Rotation 30 External Rotation 60 Hip ROM Limitations Comments Passive hip AD is 10 deg's bilaterally. PT-OP-M Strength Start: 08/08/18 16:30 Freq: Status: Active Protocol: Document 08/12/18 10:30 LRN (Rec: 08/12/18 16:31 LRN [id number]) Trunk Strength Trunk Manual Muscle Testing Testing Position Standing Flexion 3 Fair Extension 5 Normal Rotation Left 3 Fair Rotation Right 4 Good Lateral Flexion Left 5 Normal Lateral Flexion Right 5 Normal Hip Strength Hip Manual Muscle Testing Right Flexion (L2) 3 Fair Extension (S1) 3 Fair Left Flexion (L2) 3 Fair Extension (S1) 3 Fair Knee Strength Knee Manual Muscle Testing Right Reason Not Measured WFL Left Reason Not Measured WFL Ankle/Foot Strength Ankle and Foot Manual Muscle Testing Right Dorsiflexion (L4) 4 Good Plantarflexion (S1) 5 Normal Left Dorsiflexion (L4) 3 Fair Plantarflexion (S1) 5 Normal PT-OP-Q Treatments Start: 08/08/18 16:30 Freq: Status: Active Protocol: Document 10/14/18 10:50 LRN (Rec: 10/14/18 14:43 LRN [id number]) Therapeutic Exercises Supine Exercises Chest breathing Supine Exercise Name Chest breathing with TA held Reps/Minutes 8' Comments Neuro re-ed to train holding of TA while breathing&Assist w /stretch reflex TA tightening Supine Exercise Name TA tightening neuro re-ed Reps/Minutes 8' Comments With v. cuing of inhalation abdominal contractions and verbha, glover assist. Hamstring/LE neural stretch Side bilateral Reps/Minutes 4' Manual Therapy Treatment Manual Traction Lumbar Details Manual Lumbar traction Body Position Hooklying Reps/Duration 8' Self-Care/Home Management Treatment Education Patient Education Home Exercise Program Pain Management Activities Self-Care/Home Management Activities Discussed Pain management for L ankle (Ice frequency, duration, time). Discussed Progression of HEP ( walking program and standing ex's; increasing gradually - duration and time). PT-OP-R Modalities Start: 08/08/18 16:30 Freq: Status: Active Protocol: Document 10/14/18 10:50 LRN (Rec: 10/14/18 14:43 LRN [id number]) Ultrasound Therapy Treatment L Ankle Treatment Duration (minutes) 8 Patient Position Hooklying Coupling Medium Ultrasound Gel Applicator Size (cm2) 2 Frequency Setting (mHz) 3 Mode Setting Pulsed Duty Cycle 50% Intensity Setting (w/cm2) 1.0 Comments US to anterior and inferior to lateral malleolus of L ankle. PT-OP-T Assessment and Plan Start: 08/08/18 16:30 Freq: Status: Active Protocol: Document 10/14/18 10:50 LRN (Rec: 10/14/18 11:34 LRN [id number]) Physical Therapy Assessment Goals Back pain Impairment Back pain rated 5/10 hindering ability to brush teeth and walk > 1/2 mile Short Term Goal (STG) Pt will be able to brush his teeth with back pain no greater than 1-2/10. STG Duration 09/23/18 (10/04/18: Pain is rated 2-3/10) Mechanical Development Engineer Goal (LTG) Pt will be able to walk with spouse > 1/2 mile with back pain 3/10 or less. LTG Duration 11/04/18 (10/04/18: GOAL MET. Pain is rated 2/10 ) Gait Impairment Slow speed of gait (2.8 ft/sec ) Prison Goal (LTG) Improve speed of gait to norm of 3.08 ft/sec - preferred for men in 70's. LTG Duration 11/04/18 (10/04/18: GOAL MET. Gait Speed is 3.2 ft/sec) Stairs Impairment Pt w/50% confidence with safe stair ambulation w/railing, one step gait Prison Goal (LTG) Pt will be improve confidence level to 60% with stair ambulation w/railing, single step or reciprocal gait. LTG Duration 11/04/18 (10/04/18: Pt reports 50 % confidence) Balance Impairment MILLER score of 45 = Safe ambulation with assistive device Mechanical Development Engineer Goal (LTG) Improve balance for safe ambulation without an assistive device (MILLER score of > 45) LTG Duration 11/04/18 (10/04/18: GOAL MET. Miller score is 48) HEP Impairment Lacks appropriate HEP Prison Goal (LTG) Pt will be independent on a self care HEP. LTG Duration 11/04/18 (10/04/18: Progressing) Progress Towards Goals Progress Towards Goals Slow Progress due to Medical Issues Progress Comments HEP: Progressing as tolerated . Balance: Goal Met. Stairs: Progressing, pt 50% confident. Gait: Goal Met for normal speed of gait. Back Pain: Goal Met Assessment Summary Assessment L Ankle strain with pain from over doing neural glide exercise with pain at the anterior L foot and inferior to lat malleolus. + response to US with ability to walk afterwards with less ankle pain. Ankle pain is not low back related (no change with manual lumbar traction). Pt will be away for 4 weeks on trip; therefore he will work on normalize L ankle to nomalize gait and SLS for progression of his rehab program. Pt will be reassessed on his return. Physical Therapy Plan Frequency and Duration Frequency of Treatment 2x/Week Plan of Care Start Date 10/04/18 Plan of Care End Date 11/29/18 Next Visit Focus/Plan Next Note Type Treatment Note Next Visit Plan Recheck DGI, stair ambulation, SLS, deep breathing. If pt able to walk without pain, try TM at 1.0 speed for 10' with pt working on posture and TA/ core stabilization; also focus on progressing single leg standing. Progress resistance for rotation, Increase pt self awareness for chest breathing in supine. Review ankle EV/IV with T-Band; and check for need of LE's strengthening for improving transfer function.
--- NOTE | 2019-03-24 17:56 | PT.OPDS ---
Current Diagnoses Other abnormalities of gait and mobility (10/14/18) Other general symptoms and signs (10/14/18) Visit Care Team Role Provider Type Johny Ragland MD Attending Provider Physician Primary Care Provider Specialty: Internal Medicine Address: [address] [place] [address], [address], [address] Email: [email or web address] Visit Number Visit Number 13 Discharge Summary PT-OP-B Current Condition Start: 08/08/18 16:30 Freq: Status: Active Protocol: Document 08/12/18 10:30 LRN (Rec: 08/12/18 16:31 LRN [id number]) Current Condition History of Current Condition Onset Date 7 yrs ago Current Complaints Difficulty walking due to back pain and dec'd balance. 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 He claims the surgery was botched and since that time he has had to relearned how to walk. He has had rehabilitation off/on for the past 7 yrs in [place], [place]. He has trouble with being able to walk straight due to decreased balance. He denies fall history in the past year. The pt also complains of insidious onset of LBP that is present with activity and exercise. His pain is achy in nature. He is having difficulty walking more than 1/2 mile, standing to brush his teeth, and with sit to stand due to back pain. He has no pain with sitting or sleeping. Prior Treatments and Tests Rehabilitation for gait, on/ off for past 7 years. Future Testing and Treatments Planned None Treatment Goals Patient/Caregiver Goals Pt goal is to: 1) Walk stairs with >60% confidence (currently 50% confidence). 2) Increase speed of gait to keep up with . 3) Decrease back pain with activity. Prior Functional Status Baseline Function- ADL's Independent Baseline Function- Mobility Independent Baseline Function- Gait Able to walk 1 mile without difficulty. Up/Down stairs one at a time. Baseline Function- Recreation/Hobbies Walking: TM x 15' Stationary Biking x 15' Current Functional Impairments (Reported) Functional Limitations- ADL's Difficulty transfers: Sit to Stand. Difficulty Brushing teeth due to pain. Functional Limitations- Mobility/Gait Stair ambulation with railing one at a time with 50% confidence. Gait 1/2 mile before onset of LBP limiting gait. Personal Factors Other Personal Factors That May Effect Chronicity of balance Therapy/Recovery dysfunction Dislocated L shoulder PT-OP-T Assessment and Plan Start: 08/08/18 16:30 Freq: Status: Active Protocol: Document 03/24/19 17:27 LRN (Rec: 03/24/19 17:56 LRN [id number]) Physical Therapy Assessment Goals Back pain Impairment Back pain rated 5/10 hindering ability to brush teeth and walk > 1/2 mile Short Term Goal (STG) Pt will be able to brush his teeth with back pain no greater than 1-2/10. STG Duration 09/23/18 (10/04/18: Pain is rated 2-3/10) Beam Dyer Recessed Vat Goal (LTG) Pt will be able to walk with spouse > 1/2 mile with back pain 3/10 or less. LTG Duration 11/04/18 (10/04/18: GOAL MET. Pain is rated 2/10 ) Gait Impairment Slow speed of gait (2.8 ft/sec ) Fci Goal (LTG) Improve speed of gait to norm of 3.08 ft/sec - preferred for men in 70's. LTG Duration 11/04/18 (10/04/18: GOAL MET. Gait Speed is 3.2 ft/sec) Stairs Impairment Pt w/50% confidence with safe stair ambulation w/railing, one step gait Beam Dyer Recessed Vat Goal (LTG) Pt will be improve confidence level to 60% with stair ambulation w/railing, single step or reciprocal gait. LTG Duration 11/04/18 (10/04/18: Pt reports 50 % confidence) Balance Impairment MILLER score of 45 = Safe ambulation with assistive device Beam Dyer Recessed Vat Goal (LTG) Improve balance for safe ambulation without an assistive device (MILLER score of > 45) LTG Duration 11/04/18 (10/04/18: GOAL MET. Miller score is 48) HEP Impairment Lacks appropriate HEP Beam Dyer Recessed Vat Goal (LTG) Pt will be independent on a self care HEP. LTG Duration 11/04/18 (10/04/18: Progressing) Assessment Summary Assessment Pt was last seen 10/14/18. Last assessment of progress towards goals was 10/04/18. He injured his back 11/16/18, and requested hold on therapy. He has been seen overall for 11 visits. The pt has not returned for more therapy; therefore he is being discharged from PT. Pt was not available for final assessment. Physical Therapy Plan Discharge Physical Therapy Discharge Reasons No Longer Attending PT Discharge Comments Pt did not call back to reschedule. He will need a new referral and Plan of Care to return to physical therapy; therefore pt is being discharged from therapy. Thank you for your referral.
== END 2018-10-14 11:30 ==
LOC: PHYS 10:30
PROVIDERS: PCP Student in an Organized Health Care Education/Training Program; Visit Provider Student in an Organized Health Care Education/Training Program
DX: R68.89 Other general symptoms and signs (principal); R26.89 Other abnormalities of gait and mobility
CPT/HCPCS: 97035; 97110; 97112; 97140; 97162; 97535

== ENCOUNTER → 2019-01-02 11:12 | Outpatient (CLI) | payer MEDICARE, SELFPAY ==
[2019-01-02 12:51] LABS: Thyroid Stimulating Hormone 2.38 uIU/mL (0.47-4.68)
[2019-01-02 13:11] LABS: Vitamin B12 268 pg/mL (239-931)
[2019-01-05 18:36] LABS: Methylmalonic Acid 163 nmol/L (87-318)
== END ==
PROVIDERS: Family Provider Student in an Organized Health Care Education/Training Program; PCP Student in an Organized Health Care Education/Training Program; Visit Provider Specialist
DX: F09 Unspecified mental disorder due to known physiological condition (principal); R26.81 Unsteadiness on feet
CPT/HCPCS: 36415; 82607; 83921; 84443

== ENCOUNTER → 2019-02-08 11:10 | Outpatient (CLI) | payer MEDICARE, SELFPAY ==
--- NOTE | 2019-02-08 | DI.MRI.S_ITS ---
PROCEDURE: MR HEAD/BRAIN WO CON INDICATIONS: Unsteadiness on feet TECHNIQUE: Non-contrast axial T1 spin echo, axial T2 fast spin echo, sagittal and axial FLAIR, coronal T2 fast spin echo, axial gradient echo, axial diffusion and ADC through the brain. COMPARISON: None. FINDINGS: Image quality: Excellent. CSF spaces: Ventricles are enlarged. They appear symmetric in size and shape. Basal cisterns are patent. No extra-axial fluid collections. Brain: No intracranial bleeds or mass effects. There is cerebral volume loss for age. There are periventricular and deep white matter chronic small vessel ischemic changes. Brainstem appears normal. Diffusion-weighted images show no acute ischemic insults. No chronic ischemic insults. Normal intravascular flow voids are present. Skull and face: Calvarial bone marrow is normal in signal. Orbits are normal. Note is made of bilateral lens replacements. Sinuses: Sinus disease is seen, which is worst within the right frontal sinus and the ethmoid air cells. There is absence of portions of the medial charles of the maxillary sinuses. No abnormal fluid is seen within the mastoid air cells. IMPRESSION: Enlarged ventricles, which are disproportionately large compared to the degree of sulcal atrophy. Please consider normal pressure hydrocephalus in this patient, particularly with the given history of unsteadiness on feet. Relatively prominent paranasal sinus disease is seen. No findings of acute or subacute infarction can be seen. Dictated by: You Chao M.D. on 02/08/2019 at 11:23 Approved by: You Chao M.D. on 02/08/2019 at 11:25
== END ==
PROVIDERS: Family Provider Student in an Organized Health Care Education/Training Program; PCP Student in an Organized Health Care Education/Training Program; Visit Provider Specialist
DX: R26.81 Unsteadiness on feet (principal); F09 Unspecified mental disorder due to known physiological condition; G93.89 Other specified disorders of brain; J32.8 Other chronic sinusitis
CPT/HCPCS: 70551

== ENCOUNTER → 2020-03-08 12:57 | Outpatient (CLI) | payer MEDICARE, SELFPAY ==
--- NOTE | 2020-03-08 | DI.CT.S_ITS ---
PROCEDURE: CT SINUS SCREEN WO CON INDICATIONS: Other specified disorders of nose and nasal sinuses TECHNIQUE: Noncontrast 3.0 mm axial images acquired from the frontal sinuses to the mid-sella, with coronal and sagittal reformats. For radiation dose reduction, the following was used: automated exposure control, adjustment of mA and/or kV according to patient size. COMPARISON: None. FINDINGS: Image quality: Excellent. Sinuses: There is appearance bilateral postsurgical sinus changes. There is mild left and [id number] right maxillary sinus mucosal thickening. There is near complete opacification of the ethmoid air cells. Moderate to severe left and moderate right sphenoid sinus mucosal thickening. There is complete opacification of the right frontal as well as mild to moderate left frontal sinus mucosal thickening. No air-fluid levels are identified. Miscellaneous: Visualized intra-orbital contents are normal. No brennen bullosa or paradoxical turbinate curvature. No nasal septal deviation. IMPRESSION: 1. Postsurgical sinus changes. 2. Pansinus disease as above. Dictated by: Romi Landry M.D. on 03/08/2020 at 14:57 Approved by: Romi Landry M.D. on 03/08/2020 at 15:00
== END ==
PROVIDERS: Family Provider Student in an Organized Health Care Education/Training Program; PCP Student in an Organized Health Care Education/Training Program; Referring Provider Otolaryngology; Visit Provider Otolaryngology
DX: J32.4 Chronic pansinusitis (principal); J34.89 Other specified disorders of nose and nasal sinuses; R43.0 Anosmia
CPT/HCPCS: 70486

== ENCOUNTER → 2020-12-18 15:14 | Outpatient (CLI) | payer MEDICARE, SELFPAY ==
[2020-12-18 17:57] LABS: Cholesterol 309 mg/dL (140-199); HDL Cholesterol 65 mg/dL (40-60); LDL Cholesterol Calculated 193 mg/dL (<100); Triglycerides 256 mg/dL (35-150)
[2020-12-18 18:25] LABS: Prostate Specific Antigen Scrn 1.69 ng/mL (0.1-4.0)
== END ==
PROVIDERS: Family Provider Student in an Organized Health Care Education/Training Program; PCP Student in an Organized Health Care Education/Training Program; Referring Provider Student in an Organized Health Care Education/Training Program; Visit Provider Student in an Organized Health Care Education/Training Program
DX: Z13.220 Encounter for screening for lipoid disorders (principal); Z12.5 Encounter for screening for malignant neoplasm of prostate
CPT/HCPCS: 36415; 80061; G0103

== ENCOUNTER 2021-06-25 11:04 | Emergency (ER) | payer MEDICARE, SELFPAY ==
[2021-06-25 11:10] VITALS: BP 174/84; PULSE 96; RESP 22; TEMP 36; O2SAT 96
--- NOTE | 2021-06-25 11:13 | ED.ALLEREA ---
HPI - Allergic Reaction General Chief complaint: Allergic Reaction Stated complaint: aniphilaxis Time Seen by Provider: 06/25/21 11:11 History of Present Illness HPI narrative: Nurse from Dr. Francisco Downey office called. Patient coming here for allergic reaction. Patient receives the same dose of allergy shots every Wednesday. No changes in type of allergy shot. Had some sneezing and redness of the face at the office. He went home. He then developed shortness of breath and throat tightening and urticaria diffusely on the body. With skin itching. Patient is awake alert oriented x4. Speaking full sentences. at bedside. Denies any new products. He did see a senior oracle pl sql developer last week and has Coban wrapping around his right leg. Being evaluated for squamous cell carcinoma. No known allergies to medications Related Data Home Medications Medication Instructions Recorded Confirmed Triphala PO 12/18/20 06/19/21 Previous Rx's Medication Instructions Recorded ezetimibe 10 mg-simvastatin 40 mg 1 tab PO DAILY #90 tab 08/20/20 tablet (Vytorin) dutasteride 0.5 mg capsule 0.5 mg PO DAILY #90 cap 01/27/21 diazepam 5 mg tablet 5 mg PO DAILY #10 tab 05/17/21 diphenhydramine HCl 25 mg capsule 25 mg PO QID PRN #20 cap 06/25/21 famotidine 20 mg tablet (Pepcid) 20 mg PO BID #14 tab 06/25/21 Allergies Allergy/AdvReac Type Severity Reaction Status Date / Time No Known Drug Allergies Allergy Verified 06/19/21 16:04 Review of Systems Review of Systems Narrative: GENERAL: Denies chills, fatigue, malaise, fever, sweats. HEENT: Denies sinus pain, ear pain, sore throat, positive for throat tightening RESPIRATORY: Positive for dyspnea CARDIOVASCULAR: Denies chest pain, palpitations GASTROINTESTINAL: Denies nausea, vomiting, abdominal pain : Denies dysuria, frequency, hematuria MUSCULOSKELETAL: denies muscle or bony pain SKIN: Positive for rash NEUROLOGIC: Denies weakness, numbness ROS Unobtainable: All systems reviewed & are unremarkable except as noted in HPI and below Patient History Medical History Cataracts, bilateral (~2012) Chronic back pain (~2001) Colitis (~2011) Colon polyps (~2011) Mumps (~1949) Pneumocephalus, traumatic Tinnitus (~2010) Vision disorder Surgical History Anesthesia History of appendectomy (~1954) History of nasal surgery History of shoulder surgery Family History Father No problems noted. Social History Smoking Status: Smoker, status unknown alcohol intake: current substance use type: does not use Smoking Status: Smoker, status unknown Exam Narrative Exam Narrative: GENERAL: in no distress, not toxic not dyspneic HEAD: Normocephalic. EYES: Pupils equal round No scleral icterus. Bilateral periorbital edema, there is diffuse bilateral facial erythema ENT: Mucous membranes moist. No tongue elevation or trismus. No drooling. NECK: Trachea midline. No stridor. CARDIOVASCULAR: Regular rate and rhythm without murmurs RESPIRATORY: Clear to auscultation. Breath sounds equal bilaterally. No wheezes, rales, or rhonchi. No retractions. Speaking full sentences. GASTROINTESTINAL: Abdomen soft, non-tender EXTREMITIES: No gross deformities. BACK: No flank tenderness. NEURO: AOx4. SKIN: Warm and dry, there is diffuse urticaria on the chest arms and legs and back. PSYCH: Not anxious, is cooperative Initial Vital Signs Initial Vital Signs: Vital Signs Temperature 96.8 F L 06/25/21 11:10 Pulse Rate 96 H 06/25/21 11:10 Respiratory Rate 22 06/25/21 11:10 Blood Pressure 174/84 H 06/25/21 11:10 Pulse Oximetry 96 06/25/21 11:10 Course Course Course Narrative: No new issues during course of stay Orders Ordered: Discontinued Medications Albuterol (Albuterol Hfa Mdi 60 Puff/8 Gm Inhaler) 2 puff INH NOW ONE Stop: 06/25/21 12:06 Last Admin: 06/25/21 12:39 Dose: 2 puff Documented by: [email or web address] Diphenhydramine HCl (Diphenhydramine 50 Mg/Ml Vial) 25 mg IV NOW ONE Stop: 06/25/21 11:12 Last Admin: 06/25/21 11:17 Dose: 25 mg Documented by: LIZ Famotidine (Famotidine 20 Mg/2 Ml Vial) 20 mg IV NOW ONE Stop: 06/25/21 11:12 Last Admin: 06/25/21 11:17 Dose: 20 mg Documented by: LIZ Methylprednisolone (Methylprednisolone 125 Mg/2 Ml Vial) 125 mg IV NOW ONE Stop: 06/25/21 11:12 Last Admin: 06/25/21 11:16 Dose: 125 mg Documented by: LIZ Reevaluation(s) Reevaluation #1: Feeling better. Urticaria/hives are gone. Still feels a little short of breath. Decreased facial redness and periorbital edema. Blood pressure improved. Breathing treatment has been ordered Reevaluation #2: No complaints of breathing difficulty after inhaler. Return precautions reviewed with patient and . They desire discharge home. Time: 13:01 Vital Signs Vital signs: Vital Signs - 8 hr 06/25/21 11:10 06/25/21 11:37 06/25/21 11:38 Temperature 96.8 F L Pulse Rate 96 H 79 79 Respiratory Rate 22 13 14 Blood Pressure 174/84 H 147/81 H Pulse Oximetry 96 96 96 06/25/21 12:00 06/25/21 13:10 Temperature Pulse Rate 78 72 Respiratory Rate 22 20 Blood Pressure 136/82 134/79 Pulse Oximetry 95 99 MDM - Allergic Reaction Differential Diagnosis Differential diagnosis: Likely allergic reaction, angioedema, contact dermatitis and adverse reaction to drug MDM Narrative Medical decision making narrative: Appropriate for discharge home. Exam reassuring. Symptoms resolved with conservative treatment with Solu-Medrol Pepcid and Benadryl. Rash resolved. Breathing complaints resolved with inhaler. Blood pressure improved 136/82. Return precautions reviewed with patient. They will discontinue allergy shots at this time. They desire discharge home No blood work or imaging indicated. Treatment for allergic reaction. Not toxic. At this time total resolution of symptoms. No continuation of steroids indicated. Discharge Plan Departure Patient Disposition: Home Clinical Impression: Allergic reaction, Urticaria Instructions: DI for Anaphylaxis, DI for Hives, DI for Adverse Drug Reaction -- Allergic Activity Restrictions/Additional Instructions: Do not continue allergy shots until you review this with your provider. May use inhaler 2 puffs every 4 hours as needed for shortness of breath. Prescription for Benadryl as well as Pepcid have been provided for allergic reaction. Return if worsening questions or concerns or if any trouble breathing. See family doctor next week for re-evaluation Prescriptions: New diphenhydramine HCl 25 mg capsule 25 mg PO QID PRN (Reason: allergic reaction) Qty: 20 0RF famotidine [Pepcid] 20 mg tablet 20 mg PO BID Qty: 14 0RF No Action ezetimibe-simvastatin [Vytorin 10-40] 10-40 mg tablet 1 tab PO DAILY Qty: 90 2RF Hold Instructions: trial of cessation dutasteride 0.5 mg capsule 0.5 mg PO DAILY Qty: 90 3RF diazepam 5 mg tablet 5 mg PO DAILY Qty: 10 0RF Triphala PO 0RF Referrals: Johny Ragland MD [Primary Care Provider] - Francisco Downey MD [Physician] -
[2021-06-25] MEDS: methylPREDNISolone 125 MG/2 ML VIAL IV (11:16)
[2021-06-25] MEDS: FAMOTIDINE 20 MG/2 ML VIAL IV (11:17)
[2021-06-25] MEDS: diphenhydrAMINE 50 MG/ML VIAL 25 MG IV (11:17)
[2021-06-25 11:37] VITALS: PULSE 79; RESP 13; O2SAT 96
[2021-06-25 11:38] VITALS: BP 147/81; PULSE 79; RESP 14; O2SAT 96
[2021-06-25 12:00] VITALS: BP 136/82; PULSE 78; RESP 22; O2SAT 95
[2021-06-25] MEDS: ALBUTEROL HFA MDI 60 PUFF/8 GM INHALER INH (12:39)
[2021-06-25 13:10] VITALS: BP 134/79; PULSE 72; RESP 20; O2SAT 99
== END 2021-06-25 13:10 | disposition home or self-care (01) ==
PROVIDERS: Emergency Provider Emergency Medicine; Family Provider Student in an Organized Health Care Education/Training Program; PCP Student in an Organized Health Care Education/Training Program
DX: T78.40XA Allergy, unspecified, initial encounter (principal); L50.0 Allergic urticaria; F17.200 Nicotine dependence, unspecified, uncomplicated
CPT/HCPCS: 36415; 96374; 96375; 99284; A9270; J1200; J2930

== ENCOUNTER → 2021-07-01 08:18 | Outpatient (CLI) | payer MEDICARE, SELFPAY ==
[2021-07-01 10:17] LABS: Add Manual Diff / Slide Review NO; Basophils Absolute Auto 0 /uL (0-100); Basophils Percent Auto 0.3 % (0-2); Eosinophils Absolute Auto 200 /uL (0-450); Eosinophils Percent Auto 2.4 % (2-4); Hemoglobin 16.2 g/dL (13.5-17.5); Lymphocytes Absolute Auto 2300 /uL (1100-4500); Lymphocytes Percent Auto 28.4 % (25-40); Mean Corpuscular HGB Conc 33.7 % (30-36); Mean Corpuscular Hemoglobin 31.2 PG (26-34); Mean Corpuscular Volume 92.6 fL (80-100); Monocytes Absolute Auto 500 /uL (0-900); Monocytes Percent Auto 6.7 % (3-14); Neutrophils Absolute Auto 4900 /uL (1500-7000); Neutrophils Percent Auto 62.2 % (50-75); Platelet Count 183 X10^3/uL (150-400); Red Blood Cell Count 5.18 X10^6/uL (4.5-5.9); Red Cell Distribution Width 14.2 % (11.6-14.8); White Blood Cell Count 7.9 X10^3/uL (4.5-11.0)
[2021-07-01 10:29] LABS: Alanine Aminotransferase 21 IU/L (<50); Albumin 4.3 g/dL (3.5-5.0); Albumin Globulin Ratio 1.7 (1.0-2.8); Alkaline Phosphatase 52 U/L (38-126); Aspartate Aminotransferase 29 IU/L (17-59); BUN Creatinine Ratio 17.6 (6-22); Blood Urea Nitrogen 16 mg/dL (9-20); Calcium 9.5 mg/dL (8.4-10.2); Carbon Dioxide 24 mmol/L (22-32); Chloride 105 mmol/L (98-107); Cholesterol 158 mg/dL (140-199); Estimated Glomerular Filt Rate > 60.0 mL/min (>60); Globulin 2.5 g/dL (1.7-4.1); Glucose 117 mg/dL (80-110); HDL Cholesterol 61 mg/dL (40-60); HEMOLYSIS 19 (0-50); LDL Cholesterol Calculated 76 mg/dL (<100); Potassium 4.6 mmol/L (3.4-5.1); Sodium 139 mmol/L (137-145); Total Protein 6.8 g/dL (6.3-8.2); Triglycerides 106 mg/dL (35-150)
[2021-07-01 11:06] LABS: TSH w/ Reflex to FT4 1.51 uIU/mL (0.47-4.68)
[2021-07-01 17:59] LABS: Appearance Urine UA CLEAR; Bilirubin Urine UA NEGATIVE (NEGATIVE); Color Urine UA YELLOW; Glucose Urine UA NEGATIVE (Negative); Ketones Urine UA NEGATIVE (NEGATIVE); Leukocyte Esterase Urine UA NEGATIVE (NEGATIVE); Nitrite Urine UA NEGATIVE (Negative); Occult Blood Urine UA NEGATIVE (Negative); Protein Urine UA NEGATIVE (Negative); Specific Gravity Urine UA 1.015 (1.000-1.035); Urobilinogen Urine UA 0.2 E.U./dL (0.2)
[2021-07-01 18:09] LABS: Amorphous Sediment Urine 1+; Bacteria Urine Occasional (0-1); Culture Indicated Urine Cult Not Indicated; Mucus Urine 1+ (Negative); RBC Urine 1-5/HPF (0-5/HPF); Squamous Epithelial Cell Urine 1-5 /HPF (0-5/HPF); WBC Urine 1-5/HPF (0-5/HPF)
[2021-07-01 18:13] LABS: Creatinine Urine Random 116.6 mg/dL
[2021-07-01 18:18] LABS: Microalbumi Creatinin Ratio Ur 6.8 ug/mg CR (<30); Microalbumin Urine Random 0.8 mg/dL (0-1.6)
[2021-07-17 15:58] LABS: Aldosterone/Renin Activity Rat 16.1 (0.0-30.0); Plama Renin, LC/MS/MS 0.632 ng/mL/hr (0.167-5.380)
== END ==
PROVIDERS: Family Provider Student in an Organized Health Care Education/Training Program; PCP Student in an Organized Health Care Education/Training Program; Referring Provider Student in an Organized Health Care Education/Training Program; Visit Provider Student in an Organized Health Care Education/Training Program
DX: E78.49 Other hyperlipidemia (principal); I10 Essential (primary) hypertension
CPT/HCPCS: 36415; 80053; 80061; 81001; 82043; 82088; 82570; 84244; 84443; 85025

== ENCOUNTER → 2022-09-25 07:59 | Outpatient (CLI) | payer MEDICARE, SELFPAY ==
[2022-09-25 09:13] LABS: Add Manual Diff / Slide Review NO; Basophils Absolute Auto 0 /uL (0-100); Basophils Percent Auto 0.5 % (0-2); Eosinophils Absolute Auto 200 /uL (0-450); Eosinophils Percent Auto 3.3 % (2-4); Hematocrit 45.4 % (41-53); Hemoglobin 15.7 g/dL (13.5-17.5); Lymphocytes Absolute Auto 2000 /uL (1100-4500); Lymphocytes Percent Auto 29.5 % (25-40); Mean Corpuscular HGB Conc 34.6 % (30-36); Mean Corpuscular Hemoglobin 32.4 PG (26-34); Mean Corpuscular Volume 93.7 fL (80-100); Monocytes Absolute Auto 500 /uL (0-900); Monocytes Percent Auto 7.4 % (3-14); Neutrophils Absolute Auto 4000 /uL (1500-7000); Neutrophils Percent Auto 59.3 % (50-75); Platelet Count 195 X10^3/uL (150-400); Red Blood Cell Count 4.84 X10^6/uL (4.5-5.9); Red Cell Distribution Width 14.4 % (11.6-14.8); White Blood Cell Count 6.8 X10^3/uL (4.5-11.0)
[2022-09-25 09:36] LABS: Alanine Aminotransferase 25 IU/L (<50); Albumin 4.1 g/dL (3.5-5.0); Albumin Globulin Ratio 1.6 (1.0-2.8); Alkaline Phosphatase 56 U/L (38-126); Aspartate Aminotransferase 31 IU/L (17-59); BUN Creatinine Ratio 13.1 (6-22); Bilirubin Total 0.7 mg/dL (0.2-1.3); Blood Urea Nitrogen 11 mg/dL (9-20); Calcium 9.4 mg/dL (8.4-10.2); Carbon Dioxide 26 mmol/L (22-32); Chloride 102 mmol/L (98-107); Cholesterol 203 mg/dL (140-199); Estimated Glomerular Filt Rate > 60 mL/min (>60); Globulin 2.5 g/dL (1.7-4.1); Glucose 113 mg/dL (80-110); HDL Cholesterol 72 mg/dL (40-60); HEMOLYSIS < 15 (0-50); LDL Cholesterol Calculated 104 mg/dL (<100); Potassium 4.5 mmol/L (3.4-5.1); Sodium 136 mmol/L (137-145); Total Protein 6.6 g/dL (6.3-8.2); Triglycerides 133 mg/dL (35-150)
[2022-09-25 10:01] LABS: TSH w/ Reflex to FT4 1.29 uIU/mL (0.47-4.68)
== END ==
PROVIDERS: Family Provider Student in an Organized Health Care Education/Training Program; PCP Pediatrics; Referring Provider Pediatrics; Visit Provider Pediatrics
DX: E78.49 Other hyperlipidemia (principal); I10 Essential (primary) hypertension; R41.3 Other amnesia
CPT/HCPCS: 36415; 80053; 80061; 84443; 85025

== ENCOUNTER → 2023-05-03 10:14 | Outpatient (CLI) | payer MEDICARE, SELFPAY ==
[2023-05-03 11:33] LABS: COVID-19 CEPHEID 4-PLEX PCR POSITIVE (Negative); Influenza A - CEPHEID Flu A NEGATIVE (NEGATIVE); Influenza B - CEPHEID Flu B NEGATIVE (NEGATIVE); Respiratory Syncytial Virus Negative (Negative)
== END ==
PROVIDERS: Family Provider Student in an Organized Health Care Education/Training Program; PCP Pediatrics; Visit Provider Registered Nurse
DX: R05.9 Cough, unspecified (principal); R11.0 Nausea; R11.10 Vomiting, unspecified
CPT/HCPCS: 0241U

== ENCOUNTER 2023-06-27 10:18 | Emergency (ER) | payer MEDICARE, SELFPAY ==
[2023-06-27 10:32] VITALS: PULSE 85; RESP 18
[2023-06-27 10:35] VITALS: BP 148/71; PULSE 81; RESP 19; O2SAT 95
[2023-06-27 10:47] VITALS: BP 148/71; PULSE 80; RESP 18; TEMP 36.9; O2SAT 96; BMI 28.8
--- NOTE | 2023-06-27 10:56 | DI.RAD.S_ITS ---
PROCEDURE: XR CHEST 1V INDICATIONS: suspected sepsis TECHNIQUE: One view of the chest was acquired. COMPARISON: None. FINDINGS: Surgical changes and devices: None. Lungs and pleura: On this semiupright portable chest examination, no large pneumothorax or large pleural effusions are seen. No focal infiltrates are seen. Low lung volumes are noted. This causes a crowded appearance to the lung markings and limits evaluation. Mediastinum: Mediastinal contours appear normal. Heart size is normal. Atherosclerotic calcification of the aortic arch is noted. Bones and chest wall: No suspicious bony lesions. Age-appropriate bony degenerative changes are seen. Overlying soft tissues appear unremarkable. IMPRESSION: Limited portable chest examination, without a significant cardiopulmonary abnormality identified. Dictated by: You Chao M.D. on 06/27/2023 at 10:17 Approved by: You Chao M.D. on 06/27/2023 at 10:17
[2023-06-27 11:00] VITALS: BP 137/73; PULSE 80; RESP 14; O2SAT 96
[2023-06-27 11:06] LABS: Add Manual Diff / Slide Review NO; Basophils Absolute Auto 0 /uL (0-100); Basophils Percent Auto 0.3 % (0-2); Eosinophils Absolute Auto 400 /uL (0-450); Eosinophils Percent Auto 5.7 % (2-4); Hematocrit 43.8 % (41-53); Hemoglobin 14.8 g/dL (13.5-17.5); Lymphocytes Absolute Auto 2700 /uL (1100-4500); Lymphocytes Percent Auto 39.2 % (25-40); Mean Corpuscular HGB Conc 33.8 % (30-36); Mean Corpuscular Hemoglobin 31.3 PG (26-34); Mean Corpuscular Volume 92.6 fL (80-100); Monocytes Absolute Auto 700 /uL (0-900); Monocytes Percent Auto 10.6 % (3-14); Neutrophils Absolute Auto 3000 /uL (1500-7000); Neutrophils Percent Auto 44.2 % (50-75); Platelet Count 232 X10^3/uL (150-400); Red Blood Cell Count 4.72 X10^6/uL (4.5-5.9); Red Cell Distribution Width 14.6 % (11.6-14.8); White Blood Cell Count 6.9 X10^3/uL (4.5-11.0)
[2023-06-27] MEDS: SODIUM CHLORIDE 0.9% 1,000 ML 1000 ML IV (11:07)
[2023-06-27 11:12] LABS: Prothrombin Time 11.7 SECONDS (9.4-12.5)
[2023-06-27 11:14] LABS: PTT Partial Thromboplastin Tim 31 SECONDS (25.1-36.5)
[2023-06-27 11:16] LABS: Alanine Aminotransferase 31 IU/L (<50); Albumin Globulin Ratio 1.3 (1.0-2.8); Alkaline Phosphatase 44 U/L (38-126); Aspartate Aminotransferase 38 IU/L (17-59); BUN Creatinine Ratio 13.9 (6-22); Bilirubin Total 0.8 mg/dL (0.2-1.3); Blood Urea Nitrogen 11 mg/dL (9-20); Calcium 9.5 mg/dL (8.4-10.2); Carbon Dioxide 26 mmol/L (22-32); Chloride 103 mmol/L (98-107); Estimated Glomerular Filt Rate > 60 mL/min (>60); Glucose 112 mg/dL (80-110); HEMOLYSIS < 15 (0-50); Lactate (Lactic Acid) 1.2 mmol/L (0.7-2.1); Lipase 76 U/L (23-300); Sodium 135 mmol/L (137-145)
--- NOTE | 2023-06-27 11:19 | ED.SKABFB ---
HPI - Skin/Abscess/Foreign Bdy General Chief complaint: Weakness Stated complaint: Infection L/face Time Seen by Provider: 06/27/23 10:57 Source: patient and family Mode of arrival: Ambulatory Limitations: no limitations History of Present Illness HPI narrative: Patient 78-year-old hypertension hyperlipidemia presents today with headache. Recently he and his went to [place] for a cruise. They report saying [place] for 4 days and getting on the cruise ship. He had left periorbital cellulitis. They thought maybe he was bit by something or had ingrown eyebrow. He received IV antibiotics while in the ship he was seen by the ship physician 5 different times. It sounds like redness overall improved. He has been taking tramadol Tylenol and ibuprofen. He continues to have intermittent headaches. He constantly has a dull ache but occasionally pain escalates. He has not ever had fever he has no neck pain he has no neuro deficits. His face does look erythematous but states and he state that he is always red. No obvious swelling he is able to open up his eyes. Here today because he has a ongoing headache they were instructed to get a head CT. Related Data Home Medications Medication Instructions Recorded Confirmed Triphala PO 12/18/20 05/03/23 Previous Rx's Medication Instructions Recorded diphenhydramine HCl 25 mg capsule 25 mg PO QID PRN allergic reaction 01/27/22 #20 caps ezetimibe 10 mg-simvastatin 40 mg 1 tab PO DAILY #90 tabs 08/26/22 tablet (Vytorin) diazepam 5 mg tablet 5 mg PO DAILY PRN insomnia #20 tabs 09/18/22 dutasteride 0.5 mg capsule 0.5 mg PO DAILY #90 caps 05/24/23 lisinopril 10 mg tablet 10 mg PO DAILY #90 tabs 05/24/23 oxycodone 5 mg tablet 5 mg PO Q6H PRN pain #10 tabs 06/27/23 Allergies Allergy/AdvReac Type Severity Reaction Status Date / Time amoxicillin Allergy Severe Hives Verified 06/27/23 10:44 Patient History Medical History Pneumocephalus, traumatic Vision disorder Chronic back pain (~2001) Mumps (~1949) Tinnitus (~2010) Cataracts, bilateral (~2012) Colon polyps (~2011) Colitis (~2011) Surgical History Anesthesia History of nasal surgery History of shoulder surgery History of appendectomy (~1955) Family History Father No problems noted. Social History Smoking Status: Former smoker alcohol intake: current substance use type: does not use Smoking Status: Former smoker Substance Use Type: does not use Exam Initial Vital Signs Initial Vital Signs: Vital Signs Pulse Rate 85 06/27/23 10:32 Respiratory Rate 18 06/27/23 10:32 GENERAL: Alert 80-year-old and in no acute distress. HEENT: Head atraumatic,EOMI, pupils reactive, no significant periorbital edema face symmetric, moist mucous membranes CARDIOVASCULAR: Regular rate and rhythm without murmurs, rubs or gallops. RESPIRATORY: Breath sounds equal bilaterally, no wheezes rales or rhonchi. ABDOMEN: Soft, nontender. Normoactive bowel sounds all 4 quadrants. No guarding or rebound. EXTREMITIES: Normal range of motion, no clubbing or edema. Neurovascularly intact NEUROLOGICAL: Alert and oriented x4.Normal gait and speech. Cranial nerves II through XII grossly intact. SKIN: Warm, dry, no laceration, no petechiae, no rashes or lesions. I scalp over region Course Orders Ordered: ED Orders 06/27/23 10:56 XR chest 1V Stat Complete Blood Count AUTO DIFF Stat Comprehensive Metabolic Panel Stat Lactate (Lactic Acid) Stat Lipase Stat PTT Partial Thromboplastin Rodrigo Stat Procalcitonin Stat Prothrombin Time INR Stat RT Consult Eval and Treat NOW 06/27/23 11:20 Blood Culture Stat 06/27/23 11:30 CT head/brain wo con Stat 06/27/23 12:13 EKG-12 Lead Stat Discontinued Medications Sodium Chloride (Normal Saline 0.9%) 1,000 mls @ 1,000 mls/hr IV BOLUS ONE Stop: 06/27/23 11:55 Last Infusion: 06/27/23 12:29 Dose: Infused Documented By: Admin: 06/27/23 11:07 Dose: 1,000 mls/hr Documented By: LILA Ketorolac Tromethamine (Ketorolac 30 Mg/Ml Vial) 15 mg IV NOW ONE Stop: 06/27/23 11:31 Last Admin: 06/27/23 11:46 Dose: 15 mg Documented By: LILA Ondansetron HCl (Ondansetron 4 Mg/2 Ml Inj) 4 mg IV NOW PRN PRN Reason: Nausea And Vomiting Ondansetron HCl (Ondansetron 4 Mg Odt) 4 mg SL NOW PRN PRN Reason: Nausea And Vomiting Vital Signs Vital signs: Vital Signs - 8 hr 06/27/23 10:32 06/27/23 10:35 06/27/23 10:35 Temperature Pulse Rate 85 81 Respiratory Rate 18 19 Blood Pressure 148/71 H Pulse Oximetry 95 Oxygen Delivery Method 06/27/23 10:47 06/27/23 11:00 06/27/23 11:00 Temperature 98.4 F Pulse Rate 80 80 Respiratory Rate 18 14 Blood Pressure 148/71 H 137/73 Pulse Oximetry 96 96 Oxygen Delivery Method Room Air 06/27/23 12:42 Temperature Pulse Rate 65 Respiratory Rate 14 Blood Pressure 140/72 Pulse Oximetry 97 Oxygen Delivery Method Room Air MDM - Skin/Abscess/Foreign Bdy Lab Data 06/27/23 10:56 06/27/23 10:56 Labs: Lab Results 06/27/23 Range/Units 10:56 WBC 6.9 (4.5-11.0) X10^3/uL RBC 4.72 (4.5-5.9) X10^6/uL Hgb 14.8 (13.5-17.5) g/dL Hct 43.8 (41-53) % MCV 92.6 (80-100) fL MCH 31.3 (26-34) PG MCHC 33.8 (30-36) % RDW 14.6 (11.6-14.8) % Plt Count 232 (150-400) X10^3/uL Neut % (Auto) 44.2 L (50-75) % Lymph % (Auto) 39.2 (25-40) % Jefferson % (Auto) 10.6 (3-14) % Eos % (Auto) 5.7 H (2-4) % Baso % (Auto) 0.3 (0-2) % Neut # (Auto) 3000 (0451-7814) /uL Lymph # (Auto) 2700 (0302-4945) /uL Jefferson # (Auto) 700 (0-900) /uL Eos # (Auto) 400 (0-450) /uL Baso # (Auto) 0 (0-100) /uL PT 11.7 (9.4-12.5) SECONDS INR 1.0 (0.9-1.3) APTT 31 (25.1-36.5) SECONDS Sodium 135 L (137-145) mmol/L Potassium 4.0 (3.4-5.1) mmol/L Chloride 103 (98-107) mmol/L Carbon Dioxide 26 (22-32) mmol/L BUN 11 (9-20) mg/dL Creatinine 0.79 (0.66-1.25) mg/dL Estimated GFR > 60 (>60) mL/min BUN/Creatinine Ratio 13.9 (6-22) Glucose 112 H (80-110) mg/dL Lactate 1.2 (0.7-2.1) mmol/L Calcium 9.5 (8.4-10.2) mg/dL Total Bilirubin 0.8 (0.2-1.3) mg/dL AST 38 (17-59) IU/L ALT 31 (<50) IU/L Alkaline Phosphatase 44 (38-126) U/L Total Protein 7.0 (6.3-8.2) g/dL Albumin 4.0 (3.5-5.0) g/dL Globulin 3.0 (1.7-4.1) g/dL Albumin/Globulin Ratio 1.3 (1.0-2.8) Lipase 76 (23-300) U/L Procalcitonin 0.04 (<0.5) ng/mL Imaging Data CT scan - head: Radiologist's Impression: PROCEDURE: CT HEAD/BRAIN WO CON INDICATIONS: headache TECHNIQUE: Noncontrast 4.5 mm thick angled axial sections acquired from the foramen magnum to the vertex, with coronal and sagittal reformats. For radiation dose reduction, the following was used: automated exposure control, adjustment of mA and/or kV according to patient size. COMPARISON: [facility], MR, MR HEAD/BRAIN WO CON, 02/08/2019, 11:16. [facility], CT, CT SINUS SCREEN WO CON, 03/08/2020, 13:00. FINDINGS: Image quality: Diagnostic. CSF spaces: Basal cisterns are patent. No extra-axial fluid collections. The ventricles are symmetric , yet prominent. Brain: No intracranial bleeds or masses. There is cerebral volume loss for age, with resultant ventricular and sulcal prominence. There are periventricular and deep white matter chronic small vessel ischemic changes. There is intracranial internal carotid artery atherosclerosis. Skull and face: Mild left periorbital soft tissue swelling can be seen. No soft tissue gas or soft tissue abscess can be seen. Calvarium and visualized facial bones appear intact, without suspicious lesions. Sinuses: Moderate mucosal thickening can be seen within the maxillary sinuses and within the right frontal sinus. Milder mucosal thickening is seen elsewhere within the paranasal sinuses. No abnormal fluid is seen within the mastoid air cells. Postoperative change can be seen, with bilateral antrectomy. IMPRESSION: Left periorbital soft tissue swelling is seen, without soft tissue gas or abscess seen. No acute intracranial pathology. Note is made of age-appropriate brain parenchymal volume loss and chronic small vessel ischemic changes. Prominent lateral ventricles are seen, which are larger than would be expected, given the degree of sulcal atrophy. Please consider normal pressure hydrocephalus. Additional findings: Paranasal sinus disease Prior bilateral antrectomy Dictated by: You Chao M.D. on 06/27/2023 at 10:57 Chest x-ray: Radiologist's Impression: PROCEDURE: XR CHEST 1V INDICATIONS: suspected sepsis TECHNIQUE: One view of the chest was acquired. COMPARISON: None. FINDINGS: Surgical changes and devices: None. Lungs and pleura: On this semiupright portable chest examination, no large pneumothorax or large pleural effusions are seen. No focal infiltrates are seen. Low lung volumes are noted. This causes a crowded appearance to the lung markings and limits evaluation. Mediastinum: Mediastinal contours appear normal. Heart size is normal. Atherosclerotic calcification of the aortic arch is noted. Bones and chest wall: No suspicious bony lesions. Age-appropriate bony degenerative changes are seen. Overlying soft tissues appear unremarkable. IMPRESSION: Limited portable chest examination, without a significant cardiopulmonary abnormality identified. Dictated by: You Chao M.D. on 06/27/2023 at 10:17 ECG Data Interpretation: Normal sinus rhythm rate 69 TN interval 160 88 QTC 452 PVC noted no ischemic changes MDM Narrative Medical decision making narrative: [facility] CC: Headache Complicating co-morbidities: Hypertension hyperlipidemia recent periorbital cellulitis Corroborating data: [ ] Data collected from: Medical records reviewed: From cruise physician Differential considered: Necrotizing fasciitis orbital cellulitis, intracranial hemorrhage intracranial abscess, Exam documented above, pertinent findings include: No significant periorbital edema continues to have black and spots that look very similar to pictures from 2 weeks ago. Patient face is erythematous but not anymore. Patient is able to open eye completely. No meningeal signs overall appears well no focal deficits Lab Test results independently reviewed as above. Pertinent findings: WBC 6.9, hemoglobin 14.8, hematocrit 43.8, platelets 232, sodium 135, potassium 4.0, chloride 103, carbon dioxide 26 BUN 11, creatinine 0.79 lactate 1.2, procalcitonin 0.04 Independently reviewed EKG as above Imaging studies independently reviewed: CT head no intracranial process but does show left periorbital soft tissue swelling without gas or abscess chest x-ray no acute cardiopulmonary process Consultations: None Treatments: IV fluids Toradol Re-evaluations: Feeling a little bit better after Toradol and fluids Discussion: Patient presents today with headache. Ice 2 weeks of a facial and periorbital cellulitis. Pictures from previous compared to today actually look improved. He does not have significant periorbital edema he is able to open his eye completely. He is 2 small spots in his eyebrow which appears similar. There is no fluctuation. CT does show that he has some continued periorbital edema but not obviously present on exam. There is no gas no concern for necrotizing fasciitis. Blood work has been reviewed and stated above there is no sign of sepsis or significant leukocytosis. He is here today specifically for headache. He has a ongoing headache which sometimes worsens. No neurologic deficits no nausea or vomiting. At this time I see no need for any further antibiotics. He reports that tramadol does not really help. They already have prescriptions and medications of Tylenol ibuprofen and tramadol. Will give oxycodone to help severe headaches he says sometimes it is quite severe. They both report that he has never had fever. He is mildly confused but states he started being more confused after this infection but seems about stable now. Discharge Plan Departure Patient Disposition: Home Clinical Impression: Headache Instructions: DI for Headache Activity Restrictions/Additional Instructions: *You have been diagnosed with headache *What to do: At this time your blood work is overall reassuring. I do not see any to continue antibiotics. You still have some mild swelling around your eye *Continue to take medications as directed Oxycodone 5 mg every 6 hours only if needed for severe pain (do not combine this with tramadol) Continue paracetamol/Tylenol 1000 mg every 6 hours for [id number] pain Continue ibuprofen as prescribed *Follow up with your primary care provider in 2-3 days or call [phone] *Return to ER if you should have increasing pain numbness tingling weakness persistent vomiting [or] any new, worsening or concerning symptoms CONTROLLED SUBSTANCE DISCHARGE (Narcotoic/benzodiazepine/Flexeril/Phenergan) 1. You have been prescribed narcotic medications, it does have acetaminophen/Tylenol/paracetamol in it, DO NOT TAKE MORE THAN 4,00mg in 24 hours of Tylenol. TRAMADOL DOES NOT CONTAIN TYLENOL 2. Please understand that we cannot provide further refills of narcotics, benzodiazepines or controlled substances through the ED and her pain management will need to be through your provider. 3. While on these medications you cannot drive or operate heavy machinery. 4. You cannot sign legal documents or perform any duties such as this. 5. As long as you're taking opiate pain medications he should also be taking a stool softener such as Colace, Dulcolax, MiraLAX or prune juice, to help avoid constipation. Prescriptions: New oxycodone 5 mg tablet 5 mg PO Q6H PRN (Reason: pain) Qty: 10 0RF No Action ezetimibe-simvastatin [Vytorin 10-40] 10-40 mg tablet 1 tab PO DAILY Qty: 90 3RF Hold Instructions: trial of cessation lisinopril 10 mg tablet 10 mg PO DAILY Qty: 90 0RF dutasteride 0.5 mg capsule 0.5 mg PO DAILY Qty: 90 0RF diphenhydramine HCl 25 mg capsule 25 mg PO QID PRN (Reason: allergic reaction) Qty: 20 0RF diazepam 5 mg tablet 5 mg PO DAILY PRN (Reason: insomnia) Qty: 20 0RF Rx Instructions: Try 1/2 to 1 tab nightly if difficulty with sleep. Call if additional refill needed. Triphala PO Referrals: Willy Benedict MD [Primary Care Provider] - Stand Alone Forms: Patient Portal/API
--- NOTE | 2023-06-27 11:30 | DI.CT.S_ITS ---
PROCEDURE: CT HEAD/BRAIN WO CON INDICATIONS: headache TECHNIQUE: Noncontrast 4.5 mm thick angled axial sections acquired from the foramen magnum to the vertex, with coronal and sagittal reformats. For radiation dose reduction, the following was used: automated exposure control, adjustment of mA and/or kV according to patient size. COMPARISON: [facility], MR, MR HEAD/BRAIN WO CON, 02/08/2019, 11:16. [facility], CT, CT SINUS SCREEN WO CON, 03/08/2020, 13:00. FINDINGS: Image quality: Diagnostic. CSF spaces: Basal cisterns are patent. No extra-axial fluid collections. The ventricles are symmetric , yet prominent. Brain: No intracranial bleeds or masses. There is cerebral volume loss for age, with resultant ventricular and sulcal prominence. There are periventricular and deep white matter chronic small vessel ischemic changes. There is intracranial internal carotid artery atherosclerosis. Skull and face: Mild left periorbital soft tissue swelling can be seen. No soft tissue gas or soft tissue abscess can be seen. Calvarium and visualized facial bones appear intact, without suspicious lesions. Sinuses: Moderate mucosal thickening can be seen within the maxillary sinuses and within the right frontal sinus. Milder mucosal thickening is seen elsewhere within the paranasal sinuses. No abnormal fluid is seen within the mastoid air cells. Postoperative change can be seen, with bilateral antrectomy. IMPRESSION: Left periorbital soft tissue swelling is seen, without soft tissue gas or abscess seen. No acute intracranial pathology. Note is made of age-appropriate brain parenchymal volume loss and chronic small vessel ischemic changes. Prominent lateral ventricles are seen, which are larger than would be expected, given the degree of sulcal atrophy. Please consider normal pressure hydrocephalus. Additional findings: Paranasal sinus disease Prior bilateral antrectomy Dictated by: You Chao M.D. on 06/27/2023 at 10:57 Approved by: You Chao M.D. on 06/27/2023 at 11:00
[2023-06-27 11:33] LABS: Procalcitonin 0.04 ng/mL (<0.5)
[2023-06-27] MEDS: KETOROLAC 30 MG/ML VIAL 15 MG IV (11:46)
[2023-06-27 12:42] VITALS: BP 140/72; PULSE 65; RESP 14; O2SAT 97
--- NOTE | 2023-06-28 08:43 | PC.NURSE ---
Pt's called ED stating that pt had hallucinations, angry demeanor after taking oxycodone. Instructed to stop Oxycodone. Placed on allergy list and discontinued from medication list. states that pt has tolerated tramadol well. Dr. Benitez aware and will send in prescription for tramadol to preferred pharmacy. states pt is sleeping now and besides the hallucinations is doing well. Discussed return precautions and encouraged to have a low threshold for return to ED for re-evaluation. Encouraged to make follow up appointment w/ PCP (Dr. Benedict) this week.
== END 2023-06-27 12:44 | disposition home or self-care (01) ==
PROVIDERS: Emergency Provider Emergency Medicine; Family Provider Student in an Organized Health Care Education/Training Program; PCP Family Medicine
DX: R51.9 Headache, unspecified (principal); I10 Essential (primary) hypertension
CPT/HCPCS: 36415; 70450; 71045; 80053; 83605; 83690; 84145; 85025; 85610; 85730; 87040; 93005; 93010; 96361; 96374; 99284; J1885

== ENCOUNTER → 2023-07-16 09:06 | Outpatient (CLI) | payer MEDICARE, SELFPAY ==
--- NOTE | 2023-07-16 09:07 | DI.MRI.S_ITS ---
PROCEDURE: MR HEAD/BRAIN WO CON INDICATIONS: Abnormal CT, continuing headaches TECHNIQUE: Non-contrast axial T1 spin echo, axial T2 fast spin echo, axial FLAIR, coronal T2 fast spin echo, axial gradient echo, axial diffusion and ADC through the brain. COMPARISON: [facility], MR, MR HEAD/BRAIN WO CON, 02/08/2019, 11:16. [facility], CT, CT HEAD/BRAIN WO CON, 06/27/2023, 11:34. FINDINGS: Image quality: Excellent. CSF spaces: Ventricles appear symmetric in size and shape. Basal cisterns are patent. No extra-axial fluid collections. Brain: No intracranial mass effects. There is a focus of hemosiderin deposition seen involving the superior right frontal lobe, as on series 14 image 20, which is progressed compared to the prior. There is cerebral volume loss for age. There are periventricular and deep white matter chronic small vessel ischemic changes. Brainstem appears normal. Diffusion-weighted images show no acute infarct. Normal intravascular flow voids are present. Focal encephalomalacia can be seen involving the frontal lobes anteriorly and superiorly, right worse than left, as seen on series 11, image 18. Skull and face: Calvarial bone marrow is normal in signal. Orbits are normal. Note is made of bilateral lens replacements. Sinuses: There is at least moderate mucosal thickening within the frontal sinuses and within the ethmoid air cells. Milder mucosal thickening can be seen elsewhere. Prior bilateral antrectomy change can be seen. No abnormal fluid is seen within the mastoid air cells. IMPRESSION: No sandy acute abnormality can be seen. Significant paranasal sinus disease is seen. There has been prior bilateral antrectomy. Abnormally enlarged lateral ventricles. Normal pressure hydrocephalus is suspected. There is a small focus of hemosiderin deposition seen involving the superior anterior right frontal lobe, which is worse than in 2019. Dictated by: You Chao M.D. on 07/16/2023 at 9:44 Approved by: You Chao M.D. on 07/16/2023 at 9:51
== END ==
LOC: MRI 09:06
PROVIDERS: Family Provider Student in an Organized Health Care Education/Training Program; PCP Family Medicine; Referring Provider Family Medicine; Visit Provider Family Medicine
DX: G93.89 Other specified disorders of brain (principal); G44.40 Drug-induced headache, not elsewhere classified, not intractable; J32.8 Other chronic sinusitis; R42 Dizziness and giddiness
CPT/HCPCS: 70551

== ENCOUNTER 2024-03-01 12:35 | Emergency (ER) | payer MEDICARE, SELFPAY ==
[2024-03-01] VITALS (14 sets, daily range): BP systolic 117–145; BP diastolic 57–72; PULSE 59–73; RESP 10–18; TEMP 36.9; O2SAT 95–99; BMI 28.2
--- NOTE | 2024-03-01 12:44 | DI.RAD.S_ITS ---
PROCEDURE: XR CHEST 1V INDICATIONS: chest pain TECHNIQUE: One view of the chest was acquired. COMPARISON: [facility], CR, XR CHEST 1V, 06/27/2023, 10:57. FINDINGS: Surgical changes and devices: None. Lungs and pleura: Lungs are clear. No pleural effusions or pneumothorax. Mediastinum: Mediastinal contours appear normal. Heart size is normal. Bones and chest wall: No suspicious bony lesions. Overlying soft tissues appear unremarkable. IMPRESSION: No acute cardiopulmonary pathology. Dictated by: Herber Montaño M.D. on 03/01/2024 at 13:37 Approved by: Herber Montaño M.D. on 03/01/2024 at 13:38
--- NOTE | 2024-03-01 12:52 | EKG_ITS ---
[facility] [address] [place] [address] Test Date: 2024-03-01 Pat Name: Carlin Roblero Department: [facility] Room: Gender: Male Director Hospice Operations: LILLIAN : 1945 Requested By: Order Number: [id number] Reading MD: Thompson Bravo MD Measurements Intervals [place] Rate: 67 P: 22 HI: 170 QRS: 47 QRSD: 94 T: 62 QT: 376 QTc: 397 Interpretive Statements Sinus rhythm with marked sinus arrhythmia with occasional premature ventricular complexes Low voltage QRS Nonspecific T wave abnormality Electronically Signed On 03-02-2024 6:46:47 PST by Thompson Bravo MD
--- NOTE | 2024-03-01 13:11 | ED.CHESTPAIN ---
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 is concerned with progressive memory loss and patient was evaluated by Dr. Oliver, neurologist at [facility] in late November. They then went on a cruise that lasted almost a month from [facility] back to [place] Retirement through that trip he had pneumonia that was treated with antibiotics and has resolved. He had been prescribed Namenda at the end of November and has tried it intermittently. She stopped it during the cruise, started at about a week ago. Patient presents today with a week of increasing episodes of chest pain that he describes as severe, central chest, worse since and attributed symptoms to GI etiology given the diet changes over the holiday. She is given him Rolaids each times it happens in the seems to help somewhat. She is now worried that he has had 2 episodes that if awoken him in the middle of the night including last night. She is worried that the episodes are becoming more frequent and more intense. It is unclear if they are related to activity or not. Patient has cognitive impairment is difficult to fully assess as his answers all questions. He is completely cooperative Related Data Home Medications Medication Instructions Recorded Confirmed Triphala PO 12/18/20 08/04/23 tamsulosin 0.4 mg capsule 0.4 mg PO DAILY 06/30/23 08/04/23 Previous Rx's Medication Instructions Recorded dutasteride 0.5 mg capsule 0.5 mg PO DAILY #90 caps 05/24/23 sumatriptan succinate 25 mg tablet 25 mg PO .COMPLEX PRN migraine 07/08/23 headache #14 tabs ezetimibe 10 mg-simvastatin 40 mg 1 tab PO DAILY #90 tabs 09/13/23 tablet (Vytorin) lisinopril 10 mg tablet 10 mg PO DAILY #90 tabs 02/22/24 omeprazole 40 mg capsule,delayed 40 mg PO DAILY #30 caps 03/01/24 release Allergies Allergy/AdvReac Type Severity Reaction Status Date / Time amoxicillin Allergy Severe Hives Verified 03/01/24 12:44 oxycodone Allergy Severe Hallucinati Verified 03/01/24 12:44 ng Review of Systems Review of Systems Narrative: Pertinent positive and negative findings as per HPI Patient History Medical History Alzheimer's type dementia Allergies Pneumocephalus, traumatic Vision disorder Chronic back pain (~2001) Mumps (~1949) Tinnitus (~2010) Cataracts, bilateral (~2012) Colon polyps (~2011) Colitis (~2011) Surgical History Anesthesia History of nasal surgery History of shoulder surgery History of appendectomy (~1954) Family History Father No problems noted. Social History Smoking Status: Former smoker alcohol intake: current substance use type: does not use Smoking Status: Former smoker Alcohol type: wine Exam Initial Vital Signs Initial Vital Signs: Vital Signs Temperature 98.5 F 03/01/24 12:38 Pulse Rate 63 03/01/24 12:38 Respiratory Rate 18 03/01/24 12:38 Blood Pressure 129/62 03/01/24 12:38 Pulse Oximetry 97 03/01/24 12:38 Oxygen Delivery Method Room Air 03/01/24 12:38 General: Healthy appearing, in no acute distress. Affable response to all questions but defers to his . HEENT: Moist mucous membranes, normal sclera with reactive pupils, Neck: No JVD, supple Respiratory: Lungs are clear to auscultation, no wheezing no rales no rhonchi. Full and symmetrical air movement Cardiac: Regular rate and rhythm no murmurs no bruits Abdomen: Soft, nontender, palpation does not reproduce any chest pain, good bowel tones, no flank pain Skin: Warm and dry, no rashes Neurologic: Grossly neurologically intact with no obvious asymmetries or abnormalities. When he does speak, fluency is appropriate Extremities: No trauma, well perfused Psych: Cooperative, appropriate affect Course Orders Ordered: ED Orders 03/01/24 12:44 XR chest 1V Stat EKG-12 Lead Stat 03/01/24 13:45 Complete Blood Count AUTO DIFF Stat Comprehensive Metabolic Panel Stat Lipase Stat Magnesium Stat NT-proBNP (BNP-Adult 18+) Stat PTT Partial Thromboplastin Rodrigo Stat Prothrombin Time INR Stat Troponin & CK Cardiac Panel Stat 03/01/24 15:50 Troponin I Stat Discontinued Medications Aspirin (Aspirin 81 Mg Chew Tab) 324 mg PO NOW ONE Stop: 03/01/24 12:45 Last Admin: 03/01/24 13:22 Dose: 324 mg Documented By: CHIDI Vital Signs Vital signs: Vital Signs - 8 hr 03/01/24 12:38 03/01/24 12:54 03/01/24 12:57 Temperature 98.5 F Pulse Rate 63 63 63 Respiratory Rate 18 14 Blood Pressure 129/62 Pulse Oximetry 97 95 96 Oxygen Delivery Method Room Air 03/01/24 12:57 03/01/24 13:00 03/01/24 13:00 Temperature Pulse Rate 61 Respiratory Rate 17 Blood Pressure 137/67 117/57 L Pulse Oximetry 96 Oxygen Delivery Method 03/01/24 13:30 03/01/24 14:00 03/01/24 14:30 Temperature Pulse Rate 73 59 L 61 Respiratory Rate 18 10 L 13 Blood Pressure Pulse Oximetry 99 95 95 Oxygen Delivery Method 03/01/24 15:00 Temperature Pulse Rate 60 Respiratory Rate 15 Blood Pressure Pulse Oximetry 96 Oxygen Delivery Method MDM - Chest Pain Lab Data 03/01/24 13:45 03/01/24 13:45 Labs: Lab Results 03/01/24 03/01/24 Range/Units 13:45 15:50 WBC 7.0 (4.5-11.0) X10^3/uL RBC 5.01 (4.5-5.9) X10^6/uL Hgb 15.6 (13.5-17.5) g/dL Hct 47.7 (41-53) % MCV 95.2 (80-100) fL MCH 31.1 (26-34) PG MCHC 32.7 (30-36) % RDW 14.3 (11.6-14.8) % Plt Count 216 (150-400) X10^3/uL Neut % (Auto) 51.5 (50-75) % Lymph % (Auto) 33.6 (25-40) % Terry % (Auto) 10.0 (3-14) % Eos % (Auto) 3.9 (2-4) % Baso % (Auto) 1.0 (0-2) % Neut # (Auto) 3600 (0543-9870) /uL Lymph # (Auto) 2400 (9121-5843) /uL Terry # (Auto) 700 (0-900) /uL Eos # (Auto) 300 (0-450) /uL Baso # (Auto) 100 (0-100) /uL PT 10.2 (9.4-12.5) SECONDS INR 0.9 (0.9-1.3) APTT 33 (25.1-36.5) SECONDS Sodium 136 L (137-145) mmol/L Potassium 4.6 (3.4-5.1) mmol/L Chloride 104 (98-107) mmol/L Carbon Dioxide 26 (22-32) mmol/L BUN 14 (9-20) mg/dL Creatinine 0.92 (0.66-1.25) mg/dL Estimated GFR > 60 (>60) mL/min BUN/Creatinine Ratio 15.2 (6-22) Glucose 106 (80-110) mg/dL Calcium 10.1 (8.4-10.2) mg/dL Magnesium 1.9 (1.6-2.3) mg/dL Total Bilirubin 0.8 (0.2-1.3) mg/dL AST 35 (17-59) IU/L ALT 25 (<50) IU/L Alkaline Phosphatase 55 (38-126) U/L Total Creatine Kinase 73 (55-170) U/L Troponin I 0.026 0.026 (0.01-0.034) ng/mL NT-Pro-B Natriuret Pep 131 (<450) pg/mL Total Protein 7.1 (6.3-8.2) g/dL Albumin 4.4 (3.5-5.0) g/dL Globulin 2.7 (1.7-4.1) g/dL Albumin/Globulin Ratio 1.6 (1.0-2.8) Lipase 92 (23-300) U/L MDM Narrative Medical decision making narrative: CC: Chest pain Complicating co-morbidities: Short term memory loss chronic secondary to brain trauma worsening with likely Alzheimer's complication, hypertension, hyperlipidemia Data collected from: patient, Medical records reviewed: Neurology note from December 23 reviewed Differential considered: Acute coronary syndrome, reflux, musculoskeletal pain Exam documented above, pertinent findings include: Exam today is entirely benign. Short-term memory loss but when he does speak fluent with the appropriate content Lab Test results independently reviewed as above. Pertinent findings: CBC is unremarkable Chemistries are reassuring. Initial and repeat troponin are unremarkable Independently reviewed EKG: Sinus rhythm at a rate of 67. No acute ischemic changes Imaging studies independently reviewed: Chest x-ray is unremarkable Discussion: 79 gentleman with frontal lobe damage and short-term memory loss now with worsening dementia presents with a week of increasing burning substernal chest pain seemingly increasing over the last week. Has woken him up at night 2 times. Resolves with Rolaids. He has never had coronary disease he does have a history of hypertension hyperlipidemia. He has been completely asymptomatic while in the emergency department. Workup does not suggest acute coronary syndrome, congestive heart failure, pneumonia, pulmonary embolism or alternate explanation for his chest pain that would require additional imaging or hospitalization. Most likely explanation at this point is GI source likely from the dietary changes associated with the recent . We will place him on omeprazole he does have an appointment in about 2 weeks with his primary care physician. Findings reviewed and he is safe for discharge Heart Score = 3, low risk for MACE Discharge Plan Departure Patient Disposition: Home Clinical Impression: Chest pain Qualifiers: Chest pain type: unspecified Qualified Code(s): R07.9 - Chest pain, unspecified Instructions: DI for Atypical Chest Pain Activity Restrictions/Additional Instructions: Thank you for coming in today Based on your workup today I do not believe that this pain that you are having is related to your heart. I am seeing no signs of infection, collapsed lung, enlarged heart, congestive heart failure, acute heart attack or heart attack like syndromes. I suspect that it is related to stomach and esophageal irritation, heartburn/reflux. I have given you a prescription for omeprazole. Like you to take a pill in the morning and a pill at night for a week and then 1 pill a day for the next 3 weeks. You do need to schedule an appointment with your primary care physician to follow up Prescription for this was electronically sent To [facility] If you find that you are getting worse or develop any new symptoms, please feel free to return to the emergency department for further evaluation. Prescriptions: New omeprazole 40 mg capsule,delayed release(DR/EC) 40 mg PO DAILY Qty: 30 0RF No Action tamsulosin 0.4 mg capsule 0.4 mg PO DAILY dutasteride 0.5 mg capsule 0.5 mg PO DAILY Qty: 90 0RF sumatriptan succinate 25 mg tablet 25 mg PO .COMPLEX PRN (Reason: migraine headache) Qty: 14 0RF Rx Instructions: One tablet at onset of headache, if no relief may repeat in 2 hours. ezetimibe-simvastatin [Vytorin 10-40] 10-40 mg tablet 1 tab PO DAILY Qty: 90 3RF Hold Instructions: trial of cessation lisinopril 10 mg tablet 10 mg PO DAILY Qty: 90 1RF Triphala PO Referrals: Willy Benedict MD [Primary Care Provider] - Stand Alone Forms: Patient Portal/API/Survey
[2024-03-01] MEDS: ASPIRIN 81 MG CHEW TAB 324 MG PO (13:22)
--- NOTE | 2024-03-01 13:46 | PC.NURSE ---
Pt currently denies CP. Pt reports the pain has been intermittent. states pt was started on a new memory medication that she read can cause blood clot; pt also getting over chest cold. Recent travel to [place] in January.
[2024-03-01 13:56] LABS: Add Manual Diff / Slide Review NO; Basophils Absolute Auto 100 /uL (0-100); Eosinophils Absolute Auto 300 /uL (0-450); Eosinophils Percent Auto 3.9 % (2-4); Hematocrit 47.7 % (41-53); Hemoglobin 15.6 g/dL (13.5-17.5); Lymphocytes Absolute Auto 2400 /uL (1100-4500); Lymphocytes Percent Auto 33.6 % (25-40); Mean Corpuscular HGB Conc 32.7 % (30-36); Mean Corpuscular Hemoglobin 31.1 PG (26-34); Mean Corpuscular Volume 95.2 fL (80-100); Monocytes Absolute Auto 700 /uL (0-900); Neutrophils Absolute Auto 3600 /uL (1500-7000); Neutrophils Percent Auto 51.5 % (50-75); Platelet Count 216 X10^3/uL (150-400); Red Blood Cell Count 5.01 X10^6/uL (4.5-5.9); Red Cell Distribution Width 14.3 % (11.6-14.8)
[2024-03-01 14:02] LABS: INR 0.9 (0.9-1.3); Prothrombin Time 10.2 SECONDS (9.4-12.5)
[2024-03-01 14:05] LABS: PTT Partial Thromboplastin Tim 33 SECONDS (25.1-36.5)
[2024-03-01 14:08] LABS: Alanine Aminotransferase 25 IU/L (<50); Albumin 4.4 g/dL (3.5-5.0); Albumin Globulin Ratio 1.6 (1.0-2.8); Alkaline Phosphatase 55 U/L (38-126); Aspartate Aminotransferase 35 IU/L (17-59); BUN Creatinine Ratio 15.2 (6-22); Bilirubin Total 0.8 mg/dL (0.2-1.3); Blood Urea Nitrogen 14 mg/dL (9-20); Calcium 10.1 mg/dL (8.4-10.2); Carbon Dioxide 26 mmol/L (22-32); Chloride 104 mmol/L (98-107); Creatine Kinase 73 U/L (55-170); Estimated Glomerular Filt Rate > 60 mL/min (>60); Globulin 2.7 g/dL (1.7-4.1); Glucose 106 mg/dL (80-110); HEMOLYSIS 30 (0-50); Lipase 92 U/L (23-300); Magnesium 1.9 mg/dL (1.6-2.3); Potassium 4.6 mmol/L (3.4-5.1); Sodium 136 mmol/L (137-145); Total Protein 7.1 g/dL (6.3-8.2)
[2024-03-01 14:19] LABS: NT-proBNP (BNP-Adult 18+) 131 pg/mL (<450); Troponin I 0.026 ng/mL (0.01-0.034)
[2024-03-01 16:42] LABS: Troponin I 0.026 ng/mL (0.01-0.034)
== END 2024-03-01 18:21 | disposition home or self-care (01) ==
PROVIDERS: Emergency Provider Emergency Medicine; Family Provider Student in an Organized Health Care Education/Training Program; PCP Family Medicine
DX: R07.9 Chest pain, unspecified (principal); F03.90 Unspecified dementia, unspecified severity, without behavioral disturbance, psychotic disturbance, mood disturbance, and anxiety; I49.8 Other specified cardiac arrhythmias
CPT/HCPCS: 71045; 80053; 82550; 83690; 83735; 83880; 84484; 85025; 85610; 85730; 93005; 93010; 99283

== ENCOUNTER → 2024-06-06 08:46 | Outpatient (CLI) | payer MEDICARE, SELFPAY ==
[2024-06-06 10:11] LABS: Cholesterol 191 mg/dL (140-199); HDL Cholesterol 68 mg/dL (40-60); LDL Cholesterol Calculated 88 mg/dL (<100); Triglycerides 175 mg/dL (35-150)
[2024-06-06 19:21] LABS: Creatinine Urine Random 151.86 mg/dL
[2024-06-06 19:29] LABS: Microalbumin Urine Random < 0.6 mg/dL (0-1.6)
== END ==
LOC: LAB 08:47
PROVIDERS: Family Provider Student in an Organized Health Care Education/Training Program; PCP Family Medicine; Referring Provider Family Medicine; Visit Provider Family Medicine
DX: E78.49 Other hyperlipidemia (principal); I10 Essential (primary) hypertension
CPT/HCPCS: 36415; 80061; 82043; 82570

== ENCOUNTER → 2024-07-05 10:32 | Outpatient (CLI) | payer MEDICARE, SELFPAY ==
--- NOTE | 2024-07-05 10:35 | DI.RAD.S_ITS ---
PROCEDURE: XR FOOT RT MIN 3V INDICATIONS: FOOT PAIN TECHNIQUE: 3 views of the foot were acquired. COMPARISON: None. FINDINGS: Bones: Moderate hallux valgus, mild metatarsus abductus severe hammertoe deformities 1st through 5th digits and mild pes planus noted. Joints: Moderate degeneration 1st MTP and 2nd through 5th interphalangeal joints appreciated. Soft tissues: 1.5 cm ossification is posterior to the talocalcaneal joint. Mild diffuse soft swelling noted IMPRESSION: Chronic findings as described Dictated by: Thompson Gallegos M.D. on 07/06/2024 at 12:14 Approved by: Thompson Gallegos M.D. on 07/06/2024 at 12:16
== END ==
PROVIDERS: PCP Family Medicine; Referring Provider Podiatrist Foot & Ankle Surgery; Visit Provider Podiatrist Foot & Ankle Surgery
DX: M20.11 Hallux valgus (acquired), right foot (principal); M20.41 Other hammer toe(s) (acquired), right foot; M19.071 Primary osteoarthritis, right ankle and foot; M21.41 Flat foot [pes planus] (acquired), right foot
CPT/HCPCS: 73630

== ENCOUNTER 2024-07-19 11:12 | Emergency (ER) | payer MEDICARE, SELFPAY ==
[2024-07-19] VITALS (8 sets, daily range): BP systolic 110–137; BP diastolic 59–63; PULSE 69–91; RESP 14–22; TEMP 37; O2SAT 92–95; BMI 29.5
--- NOTE | 2024-07-19 11:30 | DI.RAD.S_ITS ---
PROCEDURE: XR CHEST 1V INDICATIONS: Shortness of breath TECHNIQUE: One view of the chest was acquired. COMPARISON: [facility], CR, XR CHEST 1V, 03/01/2024, 12:59. FINDINGS: Surgical changes and devices: None. Lungs and pleura: Ill-defined airspace opacities are noted in bilateral infrahilar region more prominent on the right side. Chronic scarring/atelectasis in right midlung field is again seen unchanged from prior study. No pleural effusion or pneumothorax. Mediastinum: Mediastinal contours appear normal. Heart size is normal. Bones and chest wall: No suspicious bony lesions. Overlying soft tissues appear unremarkable. IMPRESSION: Finding is concerning for bilateral lower lobe infiltrates slightly worse on the right side. No pleural effusion or pneumothorax. Dictated by: Herber Montaño M.D. on 07/19/2024 at 13:24 Approved by: Herber Montaño M.D. on 07/19/2024 at 13:24
--- NOTE | 2024-07-19 11:30 | EKG_ITS ---
[address] [address] [address], [place] [address] Test Date: 2024-07-19 Pat Name: Carlin Roblero Department: [facility] Room: Gender: Male [employer]: LILLIAN : 1945 Requested By: Order Number: [id number] Reading MD: Thompson Bravo MD Measurements Intervals [place] Rate: 81 P: 72 NV: 168 QRS: 16 QRSD: 88 T: 47 QT: 386 QTc: 448 Interpretive Statements Sinus rhythm with premature atrial complexes Low voltage QRS Electronically Signed On 07-19-2024 12:07:36 PDT by Thompson Bravo MD
--- NOTE | 2024-07-19 11:44 | ED_ITS ---
HPI - SOB/Dyspnea General Chief Complaint: Shortness of Breath/Dyspnea Stated Complaint: SOB, Wheezing , Low O2 Time Seen by Provider: 07/19/24 11:33 Source: patient Mode of arrival: Ambulatory History of Present Illness HPI Narrative: Patient is a male with a history of hypertension and prior leg swelling who presents with progressively worsening shortness of breath over the past week, accompanied by a persistent wet cough that does not produce sputum. He has been unable to sleep due to coughing and congestion, requiring him to sit upright in a chair for relief. He reports a nosebleed that began spontaneously around 8:00 PM last night. His appetite has been reduced over the past few days, though he continues to eat and drink with encouragement. He denies any history of asthma, COPD, heart failure, or tobacco use. He has no current leg swelling, abdominal pain, or changes in stomach size. Patient states that he is scheduled for an outpatient coronary catheterization on July 27, as a history of exercise-induced angina. Pertinent positives: Wet cough, congestion, reduced appetite, spontaneous nosebleed, difficulty breathing. Pertinent negatives: No sputum production, no history of asthma, COPD, or heart failure, no tobacco use, no current leg swelling, no abdominal pain, no changes in stomach size. Medications: Lisinopril for hypertension, a statin, and tamsulosin. Past Medical History: Hypertension, history of leg swelling. Surgical History: None mentioned. Related Data Home Medications Medication Instructions Recorded Confirmed Triphala PO 12/18/20 07/19/24 donepezil 5 mg tablet 5 mg PO ONCE PM 06/28/24 07/19/24 fluorouracil 5 % topical cream 1 applic topical BID 06/28/24 07/19/24 memantine 5 mg tablet 5 mg PO BID 06/28/24 07/19/24 Previous Rx's Medication Instructions Recorded dutasteride 0.5 mg capsule 0.5 mg PO DAILY #90 caps 05/24/23 sumatriptan succinate 25 mg tablet 25 mg PO .COMPLEX PRN migraine 07/08/23 headache #14 tabs ezetimibe 10 mg-simvastatin 40 mg 1 tab PO DAILY #90 tabs 09/13/23 tablet (Vytorin) lisinopril 10 mg tablet 10 mg PO DAILY #90 tabs 02/22/24 omeprazole 40 mg capsule,delayed 40 mg PO DAILY #30 caps 05/09/24 release tamsulosin 0.4 mg capsule 0.4 mg PO QPM #90 caps 07/04/24 amoxicillin 875 mg-potassium 1 tab PO BID 7 days #14 tabs 07/19/24 clavulanate 125 mg tablet azithromycin 250 mg tablet 250 mg PO DAILY 4 days #4 tabs 07/19/24 Allergies Allergy/AdvReac Type Severity Reaction Status Date / Time amoxicillin Allergy Severe Hives Verified 07/19/24 11:21 oxycodone Allergy Severe Hallucinati Verified 07/19/24 11:21 ng Review of Systems Review of Systems ROS Unobtainable: All systems reviewed & are unremarkable except as noted in HPI and below Patient History Medical History (Updated 07/19/24 @ 14:47 by Singh Dumont MD) Chronic GERD Colon cancer screening Alzheimer's type dementia Allergies Pneumocephalus, traumatic Vision disorder Chronic back pain (~2001) Mumps (~1949) Tinnitus (~2010) Cataracts, bilateral (~2012) Colon polyps (~2011) Colitis (~2011) Surgical History Anesthesia History of nasal surgery History of shoulder surgery History of appendectomy (~1954) Family History Father No problems noted. Social History marital status: household members: spouse lives independently: Yes occupational status: previously employed Smoking Status: Never smoker alcohol intake: current substance use type: does not use Smoking Status: Never smoker Alcohol type: wine Exam Narrative Exam Narrative: General: Alert, appears fatigued. Well-nourished, in mild distress. Skin: Good turgor, no rash, unusual bruising or prominent lesions. Head: Normocephalic, atraumatic. HEENT: Conjunctiva clear, EOM intact, PERRL, mucous membranes moist. Neck: Supple, normal ROM. Heart: Regular rate and rhythm, no murmur or gallop or rubs. Lungs: Persistent wet cough, mild difficulty breathing. Mild rhonchi and expiratory wheeze bilaterally Abdomen: Soft and nontender. Bowel sounds normal. No mass or hernia. Back: Spine normal without deformity or tenderness, no CVA tenderness. Extremities: No deformities, edema. Peripheral pulses intact. Neurologic: CN 2-12 normal. Normal sensation and motor exam. Psychiatric: Oriented X3. Normal mood and affect. Initial Vital Signs Initial Vital Signs: Vital Signs Temperature 98.6 F 07/19/24 11:15 Pulse Rate 91 H 07/19/24 11:15 Respiratory Rate 22 07/19/24 11:15 Blood Pressure 110/61 07/19/24 11:15 Pulse Oximetry 92 07/19/24 11:15 Oxygen Delivery Method Room Air 07/19/24 11:15 Course Orders Ordered: ED Orders 07/19/24 11:30 XR chest 1V Stat EKG-12 Lead Stat Measure peak expiratory flow ONCE RT Consult Eval and Treat NOW 07/19/24 11:38 Complete Blood Count AUTO DIFF Stat Comprehensive Metabolic Panel Stat Lactate (Lactic Acid) Stat NT-proBNP (BNP-Adult 18+) Stat Prothrombin Time INR Stat Troponin I Stat 07/19/24 11:45 Respiratory Panel (Film Array) Stat Discontinued Medications Albuterol (Albuterol 2.5 Mg/3 Ml Neb (Adult)) 2.5 mg INH NOW ONE Stop: 07/19/24 11:45 Last Admin: 07/19/24 11:53 Dose: 2.5 mg Documented By: ADINA Albuterol (Albuterol 2.5 Mg/3 Ml Neb (Adult)) 2.5 mg INH NOW ONE Stop: 07/19/24 11:48 Azithromycin (Azithromycin 250 Mg Tablet) 500 mg PO NOW ONE Stop: 07/19/24 13:36 Last Admin: 07/19/24 14:21 Dose: 500 mg Ceftriaxone Sodium 1,000 mg/ (Sodium Chloride) 100 mls @ 200 mls/hr IV NOW ONE Stop: 07/19/24 14:11 Last Admin: 07/19/24 14:20 Dose: 200 mls/hr Vital Signs Vital signs: Vital Signs - 8 hr 07/19/24 11:15 07/19/24 11:40 07/19/24 12:00 Temperature 98.6 F Pulse Rate 91 H 84 79 Respiratory Rate 22 15 16 Blood Pressure 110/61 Pulse Oximetry 92 93 95 Oxygen Delivery Method Room Air 07/19/24 12:30 07/19/24 12:41 07/19/24 12:41 Temperature Pulse Rate 81 77 Respiratory Rate 14 17 Blood Pressure 129/63 Pulse Oximetry 94 94 Oxygen Delivery Method 07/19/24 13:00 07/19/24 13:00 07/19/24 13:30 Temperature Pulse Rate 76 Respiratory Rate 14 Blood Pressure 127/59 L 133/60 Pulse Oximetry 93 Oxygen Delivery Method 07/19/24 13:30 Temperature Pulse Rate 69 Respiratory Rate 17 Blood Pressure Pulse Oximetry 94 Oxygen Delivery Method MDM - SOB/Dyspnea Lab Data Lab results narrative: I reviewed patient's lab work which shows mild leukocytosis at 12.1 no significant anemia or thrombocytopenia -electrolytes do not show acute abnormalities that would be explaining of his symptoms -patient's initial troponin undetectable and BNP is not significantly elevated lower suspicion for ACS or cardiac failure -patient's AST, ALT and bilirubin within normal limits lower suspicion for significant intra-abdominal abnormalities - 07/19/24 11:38 07/19/24 11:38 Labs: Lab Results 07/19/24 07/19/24 Range/Units 11:38 11:45 WBC 12.1 H (4.5-11.0) X10^3/uL RBC 5.04 (4.5-5.9) X10^6/uL Hgb 15.7 (13.5-17.5) g/dL Hct 46.5 (41-53) % MCV 92.3 (80-100) fL MCH 31.2 (26-34) PG MCHC 33.8 (30-36) % RDW 13.9 (11.6-14.8) % Plt Count 197 (150-400) X10^3/uL Neut % (Auto) 79.5 H (50-75) % Lymph % (Auto) 13.6 L (25-40) % Bartholomew % (Auto) 5.9 (3-14) % Eos % (Auto) 0.6 L (2-4) % Baso % (Auto) 0.4 (0-2) % Neut # (Auto) 9600 H (8893-4701) /uL Lymph # (Auto) 1700 (8170-9609) /uL Bartholomew # (Auto) 700 (0-900) /uL Eos # (Auto) 100 (0-450) /uL Baso # (Auto) 0 (0-100) /uL PT 12.0 (9.4-12.5) SECONDS INR 1.1 (0.9-1.3) Sodium 134 L (137-145) mmol/L Potassium 4.3 (3.4-5.1) mmol/L Chloride 100 (98-107) mmol/L Carbon Dioxide 23 (22-32) mmol/L BUN 13 (9-20) mg/dL Creatinine 0.90 (0.66-1.25) mg/dL Estimated GFR > 60 (>60) mL/min BUN/Creatinine Ratio 14.4 (6-22) Glucose 125 H (70-99) mg/dL Lactate 1.7 (0.7-2.1) mmol/L Calcium 9.3 (8.4-10.2) mg/dL Total Bilirubin 1.3 (0.2-1.3) mg/dL AST 42 (17-59) IU/L ALT 30 (<50) IU/L Alkaline Phosphatase 46 (38-126) U/L Troponin I < 0.012 (0.01-0.034) ng/mL NT-Pro-B Natriuret Pep 58 (<450) pg/mL Total Protein 7.3 (6.3-8.2) g/dL Albumin 4.4 (3.5-5.0) g/dL Globulin 2.9 (1.7-4.1) g/dL Albumin/Globulin Ratio 1.5 (1.0-2.8) Chlamy pneumoniae PCR Not detected (Not Detect) Adenovirus (PCR) Not detected (Not Detect) B. pertussis DNA (PCR) Not detected (Not Detect) B.parapertussis DNA PCR Not detected (Not Detecte) Coronavirus OC43 (PCR) Not detected (Not Detect) Coronavirus HKU1 (PCR) Not detected (Not Detect) Coronavirus 229E (PCR) Not detected (Not Detect) SARS-CoV-2 (PCR) Not detected (Not Detecte) Coronavirus NL63 (PCR) Not detected (Not Detect) Human Metapneumovir PCR Detected H (Not Detect) Influenza Type A (PCR) Not detected (Not Detect) Influenza Type B (PCR) Not detected (Not Detect) M. pneumoniae (PCR) Not detected (Not Detect) Parainfluenza 1 (PCR) Not detected (Not Detect) Parainfluenza 2 (PCR) Not detected (Not Detect) Parainfluenza 3 (PCR) Not detected (Not Detect) Parainfluenza 4 (PCR) Not detected (Not Detect) RSV (PCR) Not detected (Not Detect) Entero/Rhino (PCR) Not detected (Not Detect) Imaging Data Chest x-ray: My Impression: On independent evaluation of patient's chest x-ray he appears to have some development of a consolidation in the right lower lobe Radiologist's Impression: Radiologist impression cause for bilateral lower lobe infiltrates ECG Data Attestation: I personally reviewed and interpreted this ECG as follows: Interpretation: Patient's EKG shows a rate of 81 without appears to be sinus rhythm overall somewhat low voltage however no previous for comparison no signs of ST segment elevation, depression or significant T-wave abnormalities at meet STEMI criteria or indicative of acute ischemia. QTC 448, [place] interval 168 without any dropped beats. MDM Narrative Medical decision making narrative: INITIAL EVALUATION AND PLAN: - Differential diagnosis to include pulmonary, cardiac, and infectious etiologies. - Monitor oxygen saturation, including pulse oximetry during ambulation to assess for desaturation. - Evaluate for potential lung, heart, or infection-related causes. - Supportive care with hydration and monitoring of respiratory status. Differential diagnosis includes but is not limited to: COPD exacerbation, CHF exacerbation, pneumonia, upper respiratory tract infection, asthma exacerbation, PE Patient presents to the emergency department with no significant tachycardia, hypotension and saturations in the low 90s on room air with signs of mildly increased work of breathing. Nontoxic appearing with no significant lower extremity edema. -patient's laboratory evaluation as discussed above shows no signs of significant leukocytosis no evidence of significant kidney dysfunction, patient's hemodynamics have been stable throughout time in the emergency department and patient completed ambulatory challenge without desaturations or significant difficulty with ambulation or respirations. Patient given 1 dose of ceftriaxone/azithromycin in the emergency department for community-acquired pneumonia. Patient has only 1.4 curb 65 and I do not believe needs to be admitted at this time for his pneumonia. -outpatient prescription for Augmentin and azithromycin prescribed to the patient we discussed return precautions and the patient was discharged. -we specifically discussed his documented history of amoxicillin allergy which he denies but we discussed the signs and symptoms of allergic reaction and reasons to return to the emergency department. Discharge Plan Departure Patient Disposition: Home Clinical Impression: Pneumonia Activity Restrictions/Additional Instructions: You were seen in the emergency department today and found to have a pneumonia, please begin taking your antibiotics however if you have worsening symptoms such as worsening chest pain shortness breath or elevated fevers please return to the emergency department for re-evaluation and potential inpatient admission. Prescriptions: New amoxicillin-pot clavulanate 875-125 mg tablet 1 tab PO BID 7 Days Qty: 14 0RF azithromycin 250 mg tablet 250 mg PO DAILY 4 Days Qty: 4 0RF Rx Instructions: start on day 2 of therapy No Action memantine 5 mg tablet 5 mg PO BID donepezil 5 mg tablet 5 mg PO ONCE PM fluorouracil 5 % cream 1 applic topical BID omeprazole 40 mg capsule,delayed release(DR/EC) 40 mg PO DAILY Qty: 30 2RF dutasteride 0.5 mg capsule 0.5 mg PO DAILY Qty: 90 0RF sumatriptan succinate 25 mg tablet 25 mg PO .COMPLEX PRN (Reason: migraine headache) Qty: 14 0RF Rx Instructions: One tablet at onset of headache, if no relief may repeat in 2 hours. ezetimibe-simvastatin [Vytorin 10-40] 10-40 mg tablet 1 tab PO DAILY Qty: 90 3RF Hold Instructions: trial of cessation lisinopril 10 mg tablet 10 mg PO DAILY Qty: 90 1RF tamsulosin 0.4 mg capsule 0.4 mg PO QPM Qty: 90 0RF Triphala PO Referrals: Willy Benedict MD [Primary Care Provider] - Stand Alone Forms: Patient Portal/API/Survey
[2024-07-19 11:45] LABS: Add Manual Diff / Slide Review NO; Basophils Absolute Auto 0 /uL (0-100); Basophils Percent Auto 0.4 % (0-2); Eosinophils Absolute Auto 100 /uL (0-450); Eosinophils Percent Auto 0.6 % (2-4); Hematocrit 46.5 % (41-53); Hemoglobin 15.7 g/dL (13.5-17.5); Lymphocytes Absolute Auto 1700 /uL (1100-4500); Lymphocytes Percent Auto 13.6 % (25-40); Mean Corpuscular HGB Conc 33.8 % (30-36); Mean Corpuscular Hemoglobin 31.2 PG (26-34); Mean Corpuscular Volume 92.3 fL (80-100); Monocytes Absolute Auto 700 /uL (0-900); Monocytes Percent Auto 5.9 % (3-14); Neutrophils Absolute Auto 9600 /uL (1500-7000); Neutrophils Percent Auto 79.5 % (50-75); Platelet Count 197 X10^3/uL (150-400); Red Blood Cell Count 5.04 X10^6/uL (4.5-5.9); Red Cell Distribution Width 13.9 % (11.6-14.8); White Blood Cell Count 12.1 X10^3/uL (4.5-11.0)
[2024-07-19] MEDS: ALBUTEROL 2.5 MG/3 ML NEB (ADULT) INH (11:53)
[2024-07-19 11:56] LABS: Lactate (Lactic Acid) 1.7 mmol/L (0.7-2.1)
[2024-07-19 11:57] LABS: Alanine Aminotransferase 30 IU/L (<50); Albumin 4.4 g/dL (3.5-5.0); Albumin Globulin Ratio 1.5 (1.0-2.8); Alkaline Phosphatase 46 U/L (38-126); Aspartate Aminotransferase 42 IU/L (17-59); BUN Creatinine Ratio 14.4 (6-22); Bilirubin Total 1.3 mg/dL (0.2-1.3); Blood Urea Nitrogen 13 mg/dL (9-20); Calcium 9.3 mg/dL (8.4-10.2); Carbon Dioxide 23 mmol/L (22-32); Chloride 100 mmol/L (98-107); Estimated Glomerular Filt Rate > 60 mL/min (>60); Globulin 2.9 g/dL (1.7-4.1); Glucose 125 mg/dL (70-99); HEMOLYSIS < 15 (0-50); INR 1.1 (0.9-1.3); Potassium 4.3 mmol/L (3.4-5.1); Sodium 134 mmol/L (137-145); Total Protein 7.3 g/dL (6.3-8.2)
[2024-07-19 12:08] LABS: NT-proBNP (BNP-Adult 18+) 58 pg/mL (<450); Troponin I < 0.012 ng/mL (0.01-0.034)
[2024-07-19 12:48] LABS: Adenovirus Not Detected (Not Detect); B. parapertussis Not Detected (Not Detecte); Bordetella pertussis Not Detected (Not Detect); Chlamydophila pneumoniae Not Detected (Not Detect); Coronavirus 229E Not Detected (Not Detect); Coronavirus HKU1 Not Detected (Not Detect); Coronavirus NL 63 Not Detected (Not Detect); Coronavirus OC43 Not Detected (Not Detect); Human Metapneumovirus Detected (Not Detect); Human Rhinovirus/Enterovirus Not Detected (Not Detect); Influenza A Not Detected (Not Detect); Influenza B Not Detected (Not Detect); Mycoplasma pneumoniae Not Detected (Not Detect); Parainfluenza Virus 1 Not Detected (Not Detect); Parainfluenza Virus 2 Not Detected (Not Detect); Parainfluenza Virus 3 Not Detected (Not Detect); Parainfluenza Virus 4 Not Detected (Not Detect); Respiratory Syncytial Virus Not Detected (Not Detect); SARS- CoV-2 Not Detected (Not Detecte)
--- NOTE | 2024-07-19 13:39 | PC.NURSE ---
Patient able to ambulate without assistive devices. 02 sat stayed above 90%. patient coughing intermittently. provider notified
[2024-07-19] MEDS: cefTRIAXone 1,000 MG in SODIUM CHLORIDE 0.9% 100 ML 200 MG IV (14:20)
[2024-07-19] MEDS: AZITHROMYCIN 250 MG TABLET 500 MG PO (14:21)
== END 2024-07-19 15:11 | disposition home or self-care (01) ==
PROVIDERS: Emergency Provider Emergency Medicine; PCP Family Medicine
DX: J18.9 Pneumonia, unspecified organism (principal); R06.02 Shortness of breath
CPT/HCPCS: 36415; 71045; 80053; 83605; 83880; 84484; 85025; 85610; 87633; 93005; 93010; 96365; 99284; J0696; J7613

== ENCOUNTER → 2024-07-25 10:26 | Outpatient (CLI) | payer MEDICARE, SELFPAY ==
[2024-07-25 11:23] LABS: Hematocrit 45.1 % (41-53); Hemoglobin 15.7 g/dL (13.5-17.5); Mean Corpuscular HGB Conc 34.7 % (30-36); Mean Corpuscular Hemoglobin 31.5 PG (26-34); Mean Corpuscular Volume 90.7 fL (80-100); Platelet Count 322 X10^3/uL (150-400); Red Blood Cell Count 4.97 X10^6/uL (4.5-5.9); Red Cell Distribution Width 14.2 % (11.6-14.8); White Blood Cell Count 6.7 X10^3/uL (4.5-11.0)
[2024-07-25 12:05] LABS: BUN Creatinine Ratio 14.6 (6-22); Blood Urea Nitrogen 13 mg/dL (9-20); Calcium 9.6 mg/dL (8.4-10.2); Carbon Dioxide 25 mmol/L (22-32); Chloride 102 mmol/L (98-107); Estimated Glomerular Filt Rate > 60 mL/min (>60); Glucose 123 mg/dL (70-99); HEMOLYSIS 33 (0-50); Potassium 4.8 mmol/L (3.4-5.1); Sodium 136 mmol/L (137-145)
== END ==
PROVIDERS: PCP Family Medicine; Referring Provider Internal Medicine; Visit Provider Internal Medicine
DX: I20.9 Angina pectoris, unspecified (principal)
CPT/HCPCS: 36415; 80048; 85027

== ENCOUNTER → 2024-09-25 14:44 | Outpatient (CLI) | payer MEDICARE, SELFPAY ==
--- NOTE | 2024-09-25 14:46 | DI.ECHO.S_ITS ---
[facility] : : [address] : : [place] : : [id number] : : Phone: [phone] Echocardiogram Report + + :Name: ALEJANDRA VILLAGRAN Study Date: 09/25/2024 Height: 74 in : :[facility] ReadingLocation: Weight: 232 lb : : Gender: Male BSA: 2.3 m2 : :: 1945 Age: 79 yrs BP: 170/84 mmHg: :Reason For Study: CAD : :Ordering Physician: RODERICK MONTAÑO Performed By: Willy Cantu : :Referring: RODERICK MONTAÑO : + + Interpretation Summary 1. The left ventricular contractility is mildly compromised. Estimate ejection fraction is approximately 45 to 50% with slight hypokinesis in the anterior segment. No LVH. Unable to comment on diastolic function. 2. The right ventricular contractility is normal. 3. Biatrial enlargement. The left ventricular cavity is also mildly dilated. The right ventricle is of normal size. 4. No significant valvular abnormalities. 5. No obvious intracardiac shunts. 6. No obvious intracardiac masses nor thrombi. 7. No hemodynamically significant pericardial effusion. 8. Normal right-sided filling pressures. Conclusion: Mildly compromised left ventricular systolic function with no significant valvular abnormalities. Procedure: A two-dimensional transthoracic echocardiogram with color flow and Doppler was performed. The study quality was technically good. There is no prior echocardiogram noted for this patient. The patient was in atrial fibrillation with heart rates between 53-74 bpm during the exam. Left Ventricle: The left ventricle is mildly dilated. There is normal left ventricular wall thickness. There is no ventricular septal defect visualized. The ejection fraction is estimated to be 45-50%. There are regional wall motion abnormalities as specified. Right Ventricle: The right ventricle is normal in size and function. Atria: The left atrium is mildly dilated. The right atrium is mild to moderately dilated. There is no Doppler evidence for an interatrial shunt. Mitral Valve: The mitral valve leaflets are mildly calcified. There is trace mitral regurgitation. Aortic Valve: The aortic valve is trileaflet. The aortic valve opens well. No aortic regurgitation is present. Tricuspid Valve: The tricuspid valve leaflets are thin and pliable. There is trace tricuspid regurgitation. Pulmonic Valve: The pulmonic valve is not well visualized. There is no pulmonic valvular regurgitation. Great Vessels: The aortic root is normal size. The ascending aorta could not be visualized. The pulmonary artery is normal size. The IVC is dilated (diameter is greater than 2.1 cm) yet it collapses greater than 50% with a sniff. This suggests a right atrial pressure of 8 mm Hg. Pericardium/ Pleura There is no pericardial effusion. There is no pleural effusion. MMode/2D Measurements & Calculations LVIDd: 6.1 cm LVOT diam: 2.0 cm LVIDs: 4.7 cm Ao root diam: 3.6 cm FS: 22.5 % EPSS: 1.1 cm IVSd: 1.0 cm LVPWd: 1.0 cm LV ely. diameter/BSA (cm/m^2): 2.6 LV sys. diameter/BSA (cm/m^2): 2.0 LA A2 area: 24.6 cm2 RA long axis: 6.0 cm LA A4 area: 26.1 cm2 RA area: 21.6 cm2 LA length (vol): 6.9 cm RA vol: 66.3 ml LA vol: 79.0 ml RA : 28.6 ml/m2 LA vol index: 34.1 ml/m2 IVC diam: 2.1 cm RVD1 (basal): 3.8 cm RVD2 (mid): 2.6 cm TAPSE: 2.3 cm Doppler Measurements & Calculations Ao V2 max: 128.0 cm/sec LVOT Max Micky: 103.9 cm/sec Ao V2 mean: 88.8 cm/sec LV V1 max P.3 mmHg Ao max P.5 mmHg LV V1 VTI: 23.2 cm Ao mean P.5 mmHg NATI(I,D): 2.7 cm2 Ao V2 VTI: 26.6 cm NATI(V,D): 2.5 cm2 sev ratio: 0.87 NATI indexed to BSA (cm^2/m^2): 1.2 MV E max micky: 49.5 cm/sec TR max micky: 250.8 cm/sec MV A max micky: 51.0 cm/sec TR max P.2 mmHg MV E/A: 0.97 PA V2 max: 121.2 cm/sec Med Peak E' Micky: 4.7 cm/sec PA V2 mean: 79.9 cm/sec E/E' med: 10.6 PA mean P.8 mmHg Lat Peak E' Micky: 6.0 cm/sec PA pr(Accel): 56.7 mmHg E/E' lat: 8.2 E/e' average: 9.4 MV dec time: 0.26 sec SVLVOT): 72.9 ml Reading Physician:COLE
== END ==
PROVIDERS: PCP Family Medicine; Referring Provider Internal Medicine; Visit Provider Internal Medicine
DX: I25.10 Atherosclerotic heart disease of native coronary artery without angina pectoris (principal); I48.91 Unspecified atrial fibrillation
CPT/HCPCS: 93306